=== PATIENT | male | born 1975 | race Caucasian/White ===

== ENCOUNTER 2019-07-25 14:02 | Outpatient (CLI) | payer OTHER, SELFPAY ==
--- NOTE | 2019-07-25 14:15 | USCV_ITS ---
Greg Fernández Age: 43 Gender: M : 1975 Exam Date: 07/25/2019 14:17 Ordering Phys: Bindu Aponte MD ([email or web address]) Technologist: Mary Ann Hernandez Exam Location: [facility] – [place] Indication: PALPITATIONS BP: 146 / 104 HR: 60 Rhythm: Sinus Technical Quality: FAIR MEASUREMENTS (Male / Female) Normal Values 2D ECHO LV Diastolic Diameter PLAX 5.7 cm 4.2 - 5.9 / 3.9 - 5.3 cm LV Systolic Diameter PLAX 4.7 cm LV Chamber Size 4.6 cm IVS Diastolic Thickness 1.1 cm 0.6 - 1.0 / 0.6 - 0.9 cm IVS Systolic Thickness 1.4 cm LVPW Diastolic Thickness 0.9 cm 0.6 - 1.0 / 0.6 - 0.9 cm LVPW Systolic Thickness 1.7 cm RV Chamber Size 2.6 cm LVOT Diameter 2.0 cm LV Ejection Fraction 2D Teich 36.2 % LV Ejection Fraction MOD 2C 66.7 % LV Ejection Fraction 2C AL 68.5 % LA Diameter 4.7 cm LA Width 3.3 cm LA Height 5.7 cm RA Width 2.7 cm RA Height 4.2 cm M-MODE LV Diastolic Diameter MM 6.5 cm 4.2 - 5.9 / 3.9 - 5.3 cm LV Systolic Diameter MM 4.7 cm LV Ejection Fraction MM Teich 53.2 % IVS Diastolic Thickness MM 1.2 cm 0.6 - 1.0 / 0.6 - 0.9 cm IVS Systolic Thickness MM 1.8 cm LVPW Diastolic Thickness MM 0.9 cm 0.6 - 1.0 / 0.6 - 0.9 cm LVPW Systolic Thickness MM 1.8 cm RV Diastolic Diameter MM 1.5 cm Aortic Annulus Diameter 3.7 cm LA Ao Ratio MM 1.3 MV E Point Septal Separation 1.6 cm DOPPLER AV Peak Velocity 108.0 cm/s LVOT Peak Velocity 103.0 cm/s AV Area Cont Eq vti 3.2 cm squared AV Area Cont Eq pk 3.1 cm squared MV Area PHT 4.1 cm squared Mitral E to A Ratio 1.3 MV E' Velocity 11.0 cm/s Mitral E to MV E' Ratio 7.0 Mitral E to LV E' Lateral Ratio 6.4 Mitral E to LV E' Septal Ratio 7.8 TR Peak Velocity 173.3 cm/s TR Peak Gradient 12.0 mmHg TR Mean Velocity 143.4 cm/s TR Mean Gradient 8.5 mmHg TR Velocity Time Integral 41.2 cm TV Peak E Velocity 61.0 cm/s Right Atrial Pressure 3.0 mmHg Pulmonary Artery Systolic Pressu 15.0 mmHg PV Peak Velocity 67.0 cm/s FINDINGS Left Ventricle Normal left ventricular cavity size. Normal left ventricular systolic function. No regional wall motion abnormalities. Left ventricular ejection fraction is estimated at 55 %. Normal diastolic function. Right Ventricle The right ventricle is normal in size and function. Right Atrium The right atrium is normal in size. Left Atrium The left atrium is normal in size. Mitral Valve Thickened mitral valve. No mitral valve stenosis. No mitral valve prolapse. Mild mitral valve regurgitation. Aortic Valve Structurally normal aortic valve without significant sclerosis or stenosis. There is no aortic regurgitation. Tricuspid Valve Structurally normal tricuspid valve without significant stenosis or regurgitation. Pulmonary artery systolic pressure is normal. Pulmonic Valve Mild pulmonary valve regurgitation. Pericardium Normal pericardium without effusion. Aorta Normal ascending aorta dimension. CONCLUSIONS 1-Normal left ventricular cavity size. Normal left ventricular systolic function. No regional wall motion abnormalities. Left ventricular ejection fraction is estimated at 55 %. Normal diastolic function. 2-Thickened mitral valve. No mitral valve stenosis. No mitral valve prolapse. Mild mitral valve regurgitation. 3-Mild pulmonary valve regurgitation. 4-There is no pericardial effusion. 5-Pulmonary artery systolic pressure is within normal limits. 6-Right atrial pressure is around 5 mm of mercury. 7-There are no prior echocardiogram studies to compare. Bindu Aponte MD (Electronically Signed) Final Date: 26 July 2019 17:38 S
== END 2019-07-25 14:03 | disposition home or self-care (01) ==
LOC: US 14:04
PROVIDERS: Family Provider Internal Medicine; PCP Family Medicine; Visit Provider Internal Medicine Cardiovascular Disease
DX: R00.2 Palpitations (principal); I34.0 Nonrheumatic mitral (valve) insufficiency; I37.1 Nonrheumatic pulmonary valve insufficiency
CPT/HCPCS: 93306

== ENCOUNTER → 2019-08-09 14:24 | Outpatient (BNVA) | payer OTHER, SELFPAY | PROVIDERS: Family Provider Internal Medicine; PCP Family Medicine; Referring Provider Internal Medicine Rheumatology; Visit Provider Internal Medicine Rheumatology | DX: D86.9 Sarcoidosis, unspecified (principal); Z79.899 Other long term (current) drug therapy; K71.9 Toxic liver disease, unspecified; T45.1X1D Poisoning by antineoplastic and immunosuppressive drugs, accidental (unintentional), subsequent encounter | CPT/HCPCS: 36415; 80076; 82164; 82306; 82565; 85651; 86140; 99214 ==

== ENCOUNTER → 2019-08-09 16:18 | Outpatient (BNVA) | payer OTHER, SELFPAY | PROVIDERS: Family Provider Internal Medicine; PCP Family Medicine; Referring Provider Internal Medicine Rheumatology; Visit Provider Internal Medicine Rheumatology | DX: D86.9 Sarcoidosis, unspecified (principal); Z79.899 Other long term (current) drug therapy; Z71.89 Other specified counseling; K71.9 Toxic liver disease, unspecified | CPT/HCPCS: 85025 ==

== ENCOUNTER → 2019-11-08 09:04 | Outpatient (BNVA) | payer OTHER, SELFPAY | PROVIDERS: Family Provider Internal Medicine; PCP Family Medicine; Visit Provider Internal Medicine Rheumatology | DX: H20.9 Unspecified iridocyclitis (principal); D86.9 Sarcoidosis, unspecified; Z79.899 Other long term (current) drug therapy; K71.9 Toxic liver disease, unspecified; T45.1X1D Poisoning by antineoplastic and immunosuppressive drugs, accidental (unintentional), subsequent encounter | CPT/HCPCS: 36415; 80076; 82565; 85025; 85651; 86140; 99213 ==

== ENCOUNTER 2021-01-11 13:34 | Emergency (ER) | payer OTHER, SELFPAY ==
[2021-01-11] VITALS (8 sets, daily range): BP systolic 129–170; BP diastolic 79–102; PULSE 75–91; RESP 18–19; TEMP 37.2–37.9; O2SAT 93–95; BMI 39.9
--- NOTE | 2021-01-11 14:12 | ECG_ITS ---
[facility] Test Date: 2021-01-11 Pat Name: Greg Fernández Department: Room: Gender: Male Clinical Manager: : 1975 Requested By: Alonzo Curry Order Number: [id number] Raymundo MD: Dena Barnard M.D. Measurements Intervals [place] Rate: 84 P: 4 TN: 165 QRS: -2 QRSD: 98 T: 6 QT: 365 QTc: 432 Interpretive Statements SINUS RHYTHM WITH OCCASIONAL VENTRICULAR PREMATURE COMPLEXES No previous ECG available for comparison Electronically Signed On 01-12-2021 18:22:32 CDT by Dena Barnard M.D. [id number]
--- NOTE | 2021-01-11 14:12 | XRR_ITS ---
PROCEDURE INFORMATION: Exam: XR Chest Exam date and time: 01/11/2021 2:12 PM Age: 45 years old Clinical indication: Pain; Chest pressure; Additional info: Cp TECHNIQUE: Imaging protocol: XR of the chest. Views: 1 view. COMPARISON: CT chest w con* [id number] 09/28/2018 8:33 AM FINDINGS: Lungs: There is diffusely increased interstitial markings and hazy airspace opacities in the lower lungs, suggestive of pulmonary edema. Pneumonia should be excluded clinically. Pleural spaces: Unremarkable. No pleural effusion. No pneumothorax. Heart/Mediastinum: Stable cardiomediastinal silhouette. Bones/joints: Unremarkable. XR/XR chest 1V portable [id number] IMPRESSION: Nonspecific imaging findings, which can be seen with pulmonary edema or pneumonia, clinical correlation is recommended.
--- NOTE | 2021-01-11 14:14 | W.ED.NAVMDI ---
Documented by User: GUERLINE Martinez 01/11/21 16:52 HPI - Nausea/Vomiting/Diarrhea General: Chief complaint: Abdominal Pain Stated complaint: ABD PAIN, SOB, SUDDEN ONSET VOMITING Time Seen by Provider: 01/11/21 14:08 History of Present Illness: HPI Narrative: Patient presents to the ER today with sudden onset abdominal pain -vomiting. Pain is gone now patient has pressure upper abdomen around his back. Patient has had a headache last couple days has a fever now presently denies muscle aches does feel nauseous. Has had Covid exposure. Denies any shortness of breath diaphoresis or bowel or bladder problems Patient reports history of sarcoidosis MD elicited complaint: nausea, vomiting and abdominal pain Onset (ago): minute(s) Description of vomiting: food contents Associated nausea: Yes Associated abdominal pain: Yes (Abdominal pain is gone now) Location of pain: Epigastric Radiation: left flank and right flank Pain consistency: now resolved Severity: mild Quality: dull Exacerbating factors: none Context: other (Had Covid vaccine, more during a this past week. Also had Covid exposure) Associated symtoms: Reports headache(s) and nausea; Denies anxiety, change in vision or chest pain Review of Systems Const: Denies: fever(s), chills or body aches Eyes: Denies: change in vision or blurry vision ENMT: Denies: throat pain or nasal congestion Card: Denies: chest pain or dyspnea on exertion Resp: Denies: dyspnea, productive cough or non-productive cough GI: Reports: abdominal pain (Describe his discomfort now originally had pain), nausea and vomiting : Denies: difficulty urinating Musc: Denies: extremity pain Skin/Breast: Denies: rash Neuro: Reports: headache(s) Psych: Denies: anxiety or depression Choco/Lymph: Denies: easy bruising PFSH ED PFSH: Medical History Drug-induced liver injury High risk medication use Immunization counseling Palpitation Sarcoidosis Uveitis Surgical History S/P tonsillectomy Family History Mother Congestive heart failure Hypertension Father Diabetes Social History (Updated 08/27/20 @ 15:31 by Simran Talbot RN) Smoking and tobacco status: former smoker Alcohol intake: never Household members: spouse History of recent travel: No Physical Exam Const: COMMON NORMALS: no acute distress, average body habitus and patient oriented x3 HENMT: COMMON NORMALS: normocephalic HEAD & SCALP: normal to inspection and normocephalic FACE & SINUS: normal facial exam Eye: COMMON NORMALS: conjunctivae normal GENERAL EYE: appearance normal, both eyes and all related structures CONJUNCTIVA: Yes conjunctivae normal Neck/C-Spine: COMMON NORMALS: no JVD Chest: COMMONS NORMALS: normal inspection of the chest Resp: COMMON NORMALS: normal respiratory effort and clear to auscultation bilaterally AUSCULTATION: clear to auscultation bilaterally Cardio: COMMON NORMALS: no JVD, regular rate and regular rhythm RATE: regular rate RHYTHM: regular rhythm GI: COMMON NORMALS: Normal to inspection, nondistended, normoactive bowel sounds present Extremity: COMMON NORMALS: normal to inspection and full ROM Neuro: COMMON NORMALS: patient oriented x3 Course Vital Signs: Vital signs: Vital Signs Temperature 98.9 F 01/11/21 16:11 Pulse Rate 76 01/11/21 18:24 Respiratory Rate 18 01/11/21 18:24 Blood Pressure 129/90 01/11/21 18:24 Pulse Oximetry 95 01/11/21 18:24 MDM - Nausea/Vomiting/Diarrhea Lab Data: Labs: Lab Results 01/11/21 01/11/21 01/11/21 Range/Units 14:14 14:14 14:14 WBC 6.8 (4.0-10.0) 10^3/ uL RBC 4.37 (4.1-5.3) 10^6/u L Hgb 14.0 (11.7-16.6) g/dL Hct 41.6 L (42.0-52.0) % MCV 95.2 H (80-94) fL MCH 32.0 (28.0-34.0) pg MCHC 33.7 (30.0-36.0) g/dL RDW 14.6 (12.1-15.1) % Plt Count 293 (130-400) 10^3/c mm MPV 9.6 (7.4-10.4) fL Neut % (Auto) 73.9 % Lymph % (Auto) 12.3 % Bleckley % (Auto) 10.7 % Eos % (Auto) 2.2 % Baso % (Auto) 0.6 % Neut # (Auto) 5.03 (1.8-7.7) 10^3/u L Lymph # (Auto) 0.8 (0.8-4.8) 10^3/u L Bleckley # (Auto) 0.7 (0.2-0.9) 10^3/u L Eos # (Auto) 0.2 (0.0-0.8) 10^3/u L Baso # (Auto) 0.0 (0.0-0.1) 10^3/u L Nucleated RBC % (a uto) 0 % Nucleated RBCs # 0.0 /100WBC PT (12.1-14.9) SECO NDS INR (0.8-1.2) Sodium 138 (136-145) mmol/L Potassium 4.3 (3.5-5.1) mmol/L Chloride 101 (98-107) mmol/L Carbon Dioxide 25 (22-29) mmol/L Anion Gap 16.3 (5-19) BUN 17 (6-20) mg/dL Creatinine 0.9 (0.7-1.2) mg/dL GFR Calculation 90.4 (90-130) mL/min Glucose 114 (65-115) mg/dL Calculated Osmolal ity 288 (285-295) mOsm/k g Calcium 10.1 (8.5-10.5) mg/dL Total Bilirubin 0.6 (0.15-1.2) mg/dL AST 46 H (0-40) U/L ALT 37 (0-41) U/L Alkaline Phosphata se 76 (40-130) IU/L Troponin T Baselin e 16 H (0-15) ng/L Troponin T 120 Min [place] (0-15) ng/L Delta Troponin T (0-10) ABS# NT-Pro-B Natriuret Pep (0-125) pg/mL Total Protein 6.5 L (6.6-8.7) g/dL Albumin 4.2 (3.5-5.2) g/dL Globulin 2.3 (1.3-4.6) g/dL Lipase 196 H (13-60) U/L Urine Color (Yellow) Urine Appearance (CLEAR) Urine pH (5-7) Ur Specific Gravit y (1.005-1.030) Urine Protein (Negative) Urine Glucose (UA) (Normal) Urine Ketones (Negative) Urine Blood (Negative) Urine Nitrate (Negative) Urine Bilirubin (Negative) Urine Urobilinogen (Negative) mg/dL Ur Leukocyte Roula ase (Negative) SARS-CoV-2 Ag (Rap id) (Negative) 01/11/21 01/11/21 01/11/21 Range/Units 14:16 14:16 14:49 WBC (4.0-10.0) 10^3/ uL RBC (4.1-5.3) 10^6/u L Hgb (11.7-16.6) g/dL Hct (42.0-52.0) % MCV (80-94) fL MCH (28.0-34.0) pg MCHC (30.0-36.0) g/dL RDW (12.1-15.1) % Plt Count (130-400) 10^3/c mm MPV (7.4-10.4) fL Neut % (Auto) % Lymph % (Auto) % Bleckley % (Auto) % Eos % (Auto) % Baso % (Auto) % Neut # (Auto) (1.8-7.7) 10^3/u L Lymph # (Auto) (0.8-4.8) 10^3/u L Bleckley # (Auto) (0.2-0.9) 10^3/u L Eos # (Auto) (0.0-0.8) 10^3/u L Baso # (Auto) (0.0-0.1) 10^3/u L Nucleated RBC % (a uto) % Nucleated RBCs # /100WBC PT 13.60 (12.1-14.9) SECO NDS INR 1.01 (0.8-1.2) Sodium (136-145) mmol/L Potassium (3.5-5.1) mmol/L Chloride (98-107) mmol/L Carbon Dioxide (22-29) mmol/L Anion Gap (5-19) BUN (6-20) mg/dL Creatinine (0.7-1.2) mg/dL GFR Calculation (90-130) mL/min Glucose (65-115) mg/dL Calculated Osmolal ity (285-295) mOsm/k g Calcium (8.5-10.5) mg/dL Total Bilirubin (0.15-1.2) mg/dL AST (0-40) U/L ALT (0-41) U/L Alkaline Phosphata se (40-130) IU/L Troponin T Baselin e (0-15) ng/L Troponin T 120 Min [place] (0-15) ng/L Delta Troponin T (0-10) ABS# NT-Pro-B Natriuret Pep (0-125) pg/mL Total Protein (6.6-8.7) g/dL Albumin (3.5-5.2) g/dL Globulin (1.3-4.6) g/dL Lipase (13-60) U/L Urine Color Yellow (Yellow) Urine Appearance Clear (CLEAR) Urine pH 5 (5-7) Ur Specific Gravit y 1.025 (1.005-1.030) Urine Protein Neg (Negative) Urine Glucose (UA) Norm (Normal) Urine Ketones Negative (Negative) Urine Blood Neg (Negative) Urine Nitrate Negative (Negative) Urine Bilirubin Neg (Negative) Urine Urobilinogen Norm (Negative) mg/dL Ur Leukocyte Roula ase Negative (Negative) SARS-CoV-2 Ag (Rap id) Negative (Negative) 01/11/21 01/11/21 Range/Units 16:39 16:39 WBC (4.0-10.0) 10^3/ uL RBC (4.1-5.3) 10^6/u L Hgb (11.7-16.6) g/dL Hct (42.0-52.0) % MCV (80-94) fL MCH (28.0-34.0) pg MCHC (30.0-36.0) g/dL RDW (12.1-15.1) % Plt Count (130-400) 10^3/c mm MPV (7.4-10.4) fL Neut % (Auto) % Lymph % (Auto) % Bleckley % (Auto) % Eos % (Auto) % Baso % (Auto) % Neut # (Auto) (1.8-7.7) 10^3/u L Lymph # (Auto) (0.8-4.8) 10^3/u L Bleckley # (Auto) (0.2-0.9) 10^3/u L Eos # (Auto) (0.0-0.8) 10^3/u L Baso # (Auto) (0.0-0.1) 10^3/u L Nucleated RBC % (a uto) % Nucleated RBCs # /100WBC PT (12.1-14.9) SECO NDS INR (0.8-1.2) Sodium (136-145) mmol/L Potassium (3.5-5.1) mmol/L Chloride (98-107) mmol/L Carbon Dioxide (22-29) mmol/L Anion Gap (5-19) BUN (6-20) mg/dL Creatinine (0.7-1.2) mg/dL GFR Calculation (90-130) mL/min Glucose (65-115) mg/dL Calculated Osmolal ity (285-295) mOsm/k g Calcium (8.5-10.5) mg/dL Total Bilirubin (0.15-1.2) mg/dL AST (0-40) U/L ALT (0-41) U/L Alkaline Phosphata se (40-130) IU/L Troponin T Baselin e (0-15) ng/L Troponin T 120 Min [place] 13.81 (0-15) ng/L Delta Troponin T -2.19 L (0-10) ABS# NT-Pro-B Natriuret Pep 137 H (0-125) pg/mL Total Protein (6.6-8.7) g/dL Albumin (3.5-5.2) g/dL Globulin (1.3-4.6) g/dL Lipase (13-60) U/L Urine Color (Yellow) Urine Appearance (CLEAR) Urine pH (5-7) Ur Specific Gravit y (1.005-1.030) Urine Protein (Negative) Urine Glucose (UA) (Normal) Urine Ketones (Negative) Urine Blood (Negative) Urine Nitrate (Negative) Urine Bilirubin (Negative) Urine Urobilinogen (Negative) mg/dL Ur Leukocyte Roula ase (Negative) SARS-CoV-2 Ag (Rap id) (Negative) EKG Data^: EKG 1: EKG interpretation date: 01/11/21 EKG interpretation time: 14:39 Computer generated interpretation: Sinus rhythm with occasional PVC ventricular rate 84 bpm DE interval 165 ms QRS duration 98 ms QT 365 ms EKG 2: EKG interpretation date: 01/11/21 EKG interpretation time: 16:45 Computer generated interpretation: Normal sinus rhythm ventricular rate 71 bpm DE interval 182 ms QRS duration 97 ms QT is 387 ms Discharge Plan Discharge Patient Disposition: Home Clinical Impression: Lymphadenopathy, generalized, Lytic bone lesions on xray Acute pancreatitis Qualifiers: Pancreatitis type: unspecified pancreatitis type Acute pancreatitis complication: no infection or necrosis Qualified Code(s): K85.90 - Acute pancreatitis without necrosis or infection, unspecified Condition: Stable Prescriptions: Continued ibuprofen 400 mg tablet 400 mg PO Q6H PRN (Reason: Pain) RF: 0 ProAir HFA 90 mcg/actuation Hfa Aerosol Inhaler 2 puff INHALATION Q6H PRN (Reason: Shortness Of Breath) RF: 0 Discharge Orders: Discharge ED (Routine); Ordered 01/11/21 Ordered By: Navid Velazco Referrals: Ailyn Hollingsworth MD [Primary Care Provider] - 1-3 days Discharge Diet: As Directed Discharge Activity: Increase activity as tolerated Patient Instructions: Pancreatitis (ED), Lymphadenopathy (ED) Activity Restrictions/Additional Instructions: Return for any new or worsening symptoms. Follow-up with your primary care provider within 3 days. You will be contacted by case management to schedule an appointment with the oncologist for further evaluation. 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 Consume a liquid or soft diet for the next 2 days and then gradually advance your diet. Sign Out Sign Out Data: Patient Sign Out occurred on 01/11/21 at 17:25. Patient's care was discussed, and care was transferred from to Navid Velazco MD, [facility]. Coding Level of Care Code ED Pastrycook'S Assistant for Chg Fwd Exam Comprehensive Documented by User: Navid Velazco MD, [facility] 01/11/21 23:17 HPI - Nausea/Vomiting/Diarrhea General: Chief complaint: Abdominal Pain Stated complaint: ABD PAIN, SOB, SUDDEN ONSET VOMITING Time Seen by Provider: 01/11/21 14:08 [facility] ED PFSH: Medical History Drug-induced liver injury High risk medication use Immunization counseling Palpitation Sarcoidosis Uveitis Surgical History S/P tonsillectomy Family History Mother Congestive heart failure Hypertension Father Diabetes Social History (Updated 08/27/20 @ 15:31 by Simran Talbot RN) Smoking and tobacco status: former smoker Alcohol intake: never Household members: spouse History of recent travel: No Course Reevaluation(s): Reevaluation #1: Discussed his lab and imaging findings with him. Advised that due to the extensive lymphadenopathy I am concerned about malignancy as well as the lytic lesions noted on his lumbar vertebrae. I we will discharge him and make a referral for the patient to be seen by oncology as no primary can be identified. He will need further work-up. He also has sarcoidosis and patient is wondering if this could be responsible for the lymphadenopathy. It will however not explain the lytic lesions on his spine. 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 Time: 18:10 Vital Signs: Vital signs: Vital Signs Temperature 98.9 F 01/11/21 16:11 Pulse Rate 76 01/11/21 18:24 Respiratory Rate 18 01/11/21 18:24 Blood Pressure 129/90 01/11/21 18:24 Pulse Oximetry 95 01/11/21 18:24 MDM - Nausea/Vomiting/Diarrhea MDM Narrative: Medical decision making narrative: Kindly evaluate the midlevel providers note for complete history and physical examination. I also evaluated this patient and agree with his findings. Essentially this is a 45-year-old male who presents to the emergency department with sudden onset of abdominal pain that started earlier today. Pain has since resolved. As part of his work-up he had mildly elevated lipase and so a CT scan was done. Because of his abnormal chest x-ray findings a CT was also done of his chest. CT scan of his chest, abdomen and pelvis show extensive lymphadenopathy but no significant findings on his pancreas. CT scan also showed lytic lesions on L2 and L4. I am concerned about malignancy in this patient and so he is referred to oncology for further evaluation and management. He is discharged home Medical Records: Attestation: I reviewed the patient's medical records. Lab Data: Attestation: I reviewed the patient's lab results. Labs: Lab Results 01/11/21 01/11/21 01/11/21 Range/Units 14:14 14:14 14:14 WBC 6.8 (4.0-10.0) 10^3/ uL RBC 4.37 (4.1-5.3) 10^6/u L Hgb 14.0 (11.7-16.6) g/dL Hct 41.6 L (42.0-52.0) % MCV 95.2 H (80-94) fL MCH 32.0 (28.0-34.0) pg MCHC 33.7 (30.0-36.0) g/dL RDW 14.6 (12.1-15.1) % Plt Count 293 (130-400) 10^3/c mm MPV 9.6 (7.4-10.4) fL Neut % (Auto) 73.9 % Lymph % (Auto) 12.3 % Bleckley % (Auto) 10.7 % Eos % (Auto) 2.2 % Baso % (Auto) 0.6 % Neut # (Auto) 5.03 (1.8-7.7) 10^3/u L Lymph # (Auto) 0.8 (0.8-4.8) 10^3/u L Bleckley # (Auto) 0.7 (0.2-0.9) 10^3/u L Eos # (Auto) 0.2 (0.0-0.8) 10^3/u L Baso # (Auto) 0.0 (0.0-0.1) 10^3/u L Nucleated RBC % (a uto) 0 % Nucleated RBCs # 0.0 /100WBC PT (12.1-14.9) SECO NDS INR (0.8-1.2) Sodium 138 (136-145) mmol/L Potassium 4.3 (3.5-5.1) mmol/L Chloride 101 (98-107) mmol/L Carbon Dioxide 25 (22-29) mmol/L Anion Gap 16.3 (5-19) BUN 17 (6-20) mg/dL Creatinine 0.9 (0.7-1.2) mg/dL GFR Calculation 90.4 (90-130) mL/min Glucose 114 (65-115) mg/dL Calculated Osmolal ity 288 (285-295) mOsm/k g Calcium 10.1 (8.5-10.5) mg/dL Total Bilirubin 0.6 (0.15-1.2) mg/dL AST 46 H (0-40) U/L ALT 37 (0-41) U/L Alkaline Phosphata se 76 (40-130) IU/L Troponin T Baselin e 16 H (0-15) ng/L Troponin T 120 Min [place] (0-15) ng/L Delta Troponin T (0-10) ABS# NT-Pro-B Natriuret Pep (0-125) pg/mL Total Protein 6.5 L (6.6-8.7) g/dL Albumin 4.2 (3.5-5.2) g/dL Globulin 2.3 (1.3-4.6) g/dL Lipase 196 H (13-60) U/L Urine Color (Yellow) Urine Appearance (CLEAR) Urine pH (5-7) Ur Specific Gravit y (1.005-1.030) Urine Protein (Negative) Urine Glucose (UA) (Normal) Urine Ketones (Negative) Urine Blood (Negative) Urine Nitrate (Negative) Urine Bilirubin (Negative) Urine Urobilinogen (Negative) mg/dL Ur Leukocyte Roula ase (Negative) SARS-CoV-2 Ag (Rap id) (Negative) 01/11/21 01/11/21 01/11/21 Range/Units 14:16 14:16 14:49 WBC (4.0-10.0) 10^3/ uL RBC (4.1-5.3) 10^6/u L Hgb (11.7-16.6) g/dL Hct (42.0-52.0) % MCV (80-94) fL MCH (28.0-34.0) pg MCHC (30.0-36.0) g/dL RDW (12.1-15.1) % Plt Count (130-400) 10^3/c mm MPV (7.4-10.4) fL Neut % (Auto) % Lymph % (Auto) % Bleckley % (Auto) % Eos % (Auto) % Baso % (Auto) % Neut # (Auto) (1.8-7.7) 10^3/u L Lymph # (Auto) (0.8-4.8) 10^3/u L Bleckley # (Auto) (0.2-0.9) 10^3/u L Eos # (Auto) (0.0-0.8) 10^3/u L Baso # (Auto) (0.0-0.1) 10^3/u L Nucleated RBC % (a uto) % Nucleated RBCs # /100WBC PT 13.60 (12.1-14.9) SECO NDS INR 1.01 (0.8-1.2) Sodium (136-145) mmol/L Potassium (3.5-5.1) mmol/L Chloride (98-107) mmol/L Carbon Dioxide (22-29) mmol/L Anion Gap (5-19) BUN (6-20) mg/dL Creatinine (0.7-1.2) mg/dL GFR Calculation (90-130) mL/min Glucose (65-115) mg/dL Calculated Osmolal ity (285-295) mOsm/k g Calcium (8.5-10.5) mg/dL Total Bilirubin (0.15-1.2) mg/dL AST (0-40) U/L ALT (0-41) U/L Alkaline Phosphata se (40-130) IU/L Troponin T Baselin e (0-15) ng/L Troponin T 120 Min [place] (0-15) ng/L Delta Troponin T (0-10) ABS# NT-Pro-B Natriuret Pep (0-125) pg/mL Total Protein (6.6-8.7) g/dL Albumin (3.5-5.2) g/dL Globulin (1.3-4.6) g/dL Lipase (13-60) U/L Urine Color Yellow (Yellow) Urine Appearance Clear (CLEAR) Urine pH 5 (5-7) Ur Specific Gravit y 1.025 (1.005-1.030) Urine Protein Neg (Negative) Urine Glucose (UA) Norm (Normal) Urine Ketones Negative (Negative) Urine Blood Neg (Negative) Urine Nitrate Negative (Negative) Urine Bilirubin Neg (Negative) Urine Urobilinogen Norm (Negative) mg/dL Ur Leukocyte Roula ase Negative (Negative) SARS-CoV-2 Ag (Rap id) Negative (Negative) 01/11/21 01/11/21 Range/Units 16:39 16:39 WBC (4.0-10.0) 10^3/ uL RBC (4.1-5.3) 10^6/u L Hgb (11.7-16.6) g/dL Hct (42.0-52.0) % MCV (80-94) fL MCH (28.0-34.0) pg MCHC (30.0-36.0) g/dL RDW (12.1-15.1) % Plt Count (130-400) 10^3/c mm MPV (7.4-10.4) fL Neut % (Auto) % Lymph % (Auto) % Bleckley % (Auto) % Eos % (Auto) % Baso % (Auto) % Neut # (Auto) (1.8-7.7) 10^3/u L Lymph # (Auto) (0.8-4.8) 10^3/u L Bleckley # (Auto) (0.2-0.9) 10^3/u L Eos # (Auto) (0.0-0.8) 10^3/u L Baso # (Auto) (0.0-0.1) 10^3/u L Nucleated RBC % (a uto) % Nucleated RBCs # /100WBC PT (12.1-14.9) SECO NDS INR (0.8-1.2) Sodium (136-145) mmol/L Potassium (3.5-5.1) mmol/L Chloride (98-107) mmol/L Carbon Dioxide (22-29) mmol/L Anion Gap (5-19) BUN (6-20) mg/dL Creatinine (0.7-1.2) mg/dL GFR Calculation (90-130) mL/min Glucose (65-115) mg/dL Calculated Osmolal ity (285-295) mOsm/k g Calcium (8.5-10.5) mg/dL Total Bilirubin (0.15-1.2) mg/dL AST (0-40) U/L ALT (0-41) U/L Alkaline Phosphata se (40-130) IU/L Troponin T Baselin e (0-15) ng/L Troponin T 120 Min [place] 13.81 (0-15) ng/L Delta Troponin T -2.19 L (0-10) ABS# NT-Pro-B Natriuret Pep 137 H (0-125) pg/mL Total Protein (6.6-8.7) g/dL Albumin (3.5-5.2) g/dL Globulin (1.3-4.6) g/dL Lipase (13-60) U/L Urine Color (Yellow) Urine Appearance (CLEAR) Urine pH (5-7) Ur Specific Gravit y (1.005-1.030) Urine Protein (Negative) Urine Glucose (UA) (Normal) Urine Ketones (Negative) Urine Blood (Negative) Urine Nitrate (Negative) Urine Bilirubin (Negative) Urine Urobilinogen (Negative) mg/dL Ur Leukocyte Roula ase (Negative) SARS-CoV-2 Ag (Rap id) (Negative) Imaging Data^: CT Chest: Attestation: I personally reviewed and interpreted this imaging study as follows: Radiologist's impression: [address] [id number] Scan ReportSigned Patient: Greg Fernández #: [id number]: [id number]#:[id number]/Sex: 45 / MADM Date: 01/11/21Loc: ERRoom/Bed:Attending Dr: Ordering Provider/Ordering MD: Navid Velazco MD, [facility] Date of Service: 01/11/21 Procedure(s): CT chest [facility] [id number] Accession Number(s): [id number] Report Number: [id number] PROCEDURE INFORMATION: Exam: CT Chest Without Contrast; Diagnostic Exam date and time: 01/11/2021 4:18 PM Age: 45 years old Clinical indication: Shortness of breath; Patient HX: C/O SOB w HX of sarcoidosis; Additional info: Abdominal pain, SOB TECHNIQUE: Imaging protocol: Diagnostic computed tomography of the chest without contrast. Radiation optimization: All CT scans at this facility use at least one of these dose optimization techniques: automated exposure control; mA and/or kV adjustment per patient size (includes targeted exams where dose is matched to clinical indication); or iterative reconstruction. COMPARISON: CT chest w con* [id number] 09/28/2018 8:33 AM RADIATION DOSE METRICS: Total DLP (mGy-cm): 968.78 FINDINGS: Lungs: There is diffuse reticular pattern of opacification the lungs with paraseptal thickening, and mild diffuse peribronchial thickening. No consolidation. No discrete nodule or mass identified. Pleural spaces: Unremarkable. No pneumothorax. No pleural effusion. Heart: Unremarkable. No cardiomegaly. No pericardial effusion. Aorta: Unremarkable. No aortic aneurysm. Lymph nodes: There is multiple enlarged mediastinal and bilateral hilar lymph nodes, the largest measuring 2.0 cm in transverse dimension in the right paratracheal region. Bones/joints: Old healed fracture deformity noted in the left lateral ribcage. Soft tissues: Unremarkable. CT/CT chest wo con [id number] IMPRESSION: 1. Extensive mediastinal lymphadenopathy. Lymphoma should be considered. 2. Diffuse reticular pattern of opacification of the lungs. Diagnostic considerations include malignancy, pneumonitis and edema. Radiation Dose CTDIVOL = (mGy): DLP = 968.78 (mGy-cm) Dictated By:Russel Colin By:Russel Colin Date/Time:01/11/21 [id number]/ 1649 CT Abd/Pel: Attestation: I personally reviewed and interpreted this imaging study as follows: Radiologist's impression: [address] [id number] Scan ReportSigned Patient: Greg Fernández SUnit #: [id number]: [id number]#:[id number]/Sex: 45 / MADM Date: 01/11/21Loc: ERRoom/Bed:Attending Dr: Ordering Provider/Ordering MD: Mandi Curry Sr, [facility]- Date of Service: 01/11/21 Procedure(s): CT abdomen pelvis w con* [id number] Accession Number(s): [id number] Report Number: [id number] PROCEDURE INFORMATION: Exam: CT Abdomen And Pelvis With Contrast Exam date and time: 01/11/2021 3:34 PM Age: 45 years old Clinical indication: Abdominal pain; Epigastric; Patient HX: C/O upper abd pain w n/v and elev lipaise; Additional info: Abd pain, elevated lipase TECHNIQUE: Imaging protocol: Computed tomography of the abdomen and pelvis with contrast. Radiation optimization: All CT scans at this facility use at least one of these dose optimization techniques: automated exposure control; mA and/or kV adjustment per patient size (includes targeted exams where dose is matched to clinical indication); or iterative reconstruction. Contrast material: OMNI 300; Contrast volume: 95 ml; Contrast route: INTRAVENOUS (IV); COMPARISON: abdomen limited [id number] 06/06/2019 7:22 AM RADIATION DOSE METRICS: Total DLP (mGy-cm): 1875.21 FINDINGS: Lungs: There is increased interstitial markings and paraseptal thickening in both lungs. No consolidation. Liver: Normal. No mass. Gallbladder and bile ducts: Normal. No calcified stones. No ductal dilation. Pancreas: Normal. No ductal dilation. Spleen: There is multiple hypodense lesions in the spleen, the largest measuring 3.0 cm. Adrenal glands: Normal. No mass. Kidneys and ureters: Normal. No hydronephrosis. Stomach and bowel: There is diverticulosis without evidence of diverticulitis. There is a short segment of small bowel demonstrating dilatation, air-fluid levels and fecalization in the mid lower abdomen/left lower quadrant, without clear evidence of obstruction. This finding is suggestive of slow motility. Appendix: No evidence of appendicitis. Intraperitoneal space: Unremarkable. No free air. No significant fluid collection. Vasculature: Mild diffuse atherosclerotic disease is present. Lymph nodes: There is multiple enlarged lymph nodes in the aaron hepatis, the largest measuring 1.8 cm in transverse dimension, small prominent lymph nodes throughout the retroperitoneum, enlarged lymph nodes in the iliac chains bilaterally, the largest measuring 1.9 cm on the left, and mildly prominent bilateral inguinal lymph nodes, the largest on the right measuring 1.3 cm in transverse dimension. Urinary bladder: Unremarkable as visualized. Reproductive: Unremarkable as visualized. Bones/joints: There is a 1.5 cm lytic lesion in L4, and a 0.7 cm lytic lesion in L2. Soft tissues: Unremarkable. CT/CT abdomen pelvis w con* [id number] IMPRESSION: 1. Increased interstitial markings and paraseptal thickening in both lungs, which can be seen with pulmonary edema, pneumonitis or lepidic spread of disease in the setting of malignancy. 2. Extensive lymphadenopathy in the upper abdomen, retroperitoneum, bilateral iliac chains and inguinal regions. Biopsy should be considered in the adequate clinical setting. 3. Nonspecific hypodense lesions in the spleen. 4. Nonspecific L4 lytic lesion. 5. Mildly distended short segment of small bowel loops with evidence of fecalization and no clear transition point in the left lower quadrant, suggestive of slow motility. Radiation Dose CTDIVOL = (mGy): DLP = 1875.21 (mGy-cm) Dictated By:Russel Colin By:Russel Colin Date/Time:01/11/211644DD/ 42 Discharge Plan Discharge Patient Disposition: Home Clinical Impression: Lymphadenopathy, generalized, Lytic bone lesions on xray Acute pancreatitis Qualifiers: Pancreatitis type: unspecified pancreatitis type Acute pancreatitis complication: no infection or necrosis Qualified Code(s): K85.90 - Acute pancreatitis without necrosis or infection, unspecified Condition: Stable Prescriptions: Continued ibuprofen 400 mg tablet 400 mg PO Q6H PRN (Reason: Pain) RF: 0 ProAir HFA 90 mcg/actuation Hfa Aerosol Inhaler 2 puff INHALATION Q6H PRN (Reason: Shortness Of Breath) RF: 0 Discharge Orders: Discharge ED (Routine); Ordered 01/11/21 Ordered By: Navid Velazco Referrals: Ailyn Hollingsworth MD [Primary Care Provider] - 1-3 days Discharge Diet: As Directed Discharge Activity: Increase activity as tolerated Patient Instructions: Pancreatitis (ED), Lymphadenopathy (ED) Activity Restrictions/Additional Instructions: Return for any new or worsening symptoms. Follow-up with your primary care provider within 3 days. You will be contacted by case management to schedule an appointment with the oncologist for further evaluation. 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 Consume a liquid or soft diet for the next 2 days and then gradually advance your diet. Sign Out Sign Out Data: Patient Sign Out occurred on 01/11/21 at 17:25. Patient's care was discussed, and care was transferred from to Navid Velazco MD, [facility]. Coding Level of Care Code ED Pastrycook'S Assistant for Chg Fwd Exam Comprehensive
[2021-01-11] MEDS: sodium chloride 0.9% 500 ML 999 ML IV (14:23)
[2021-01-11] MEDS: acetaminophen 500 mg Tablet 1000 MG PO (14:24)
[2021-01-11 14:38] LABS: Basophils % 0.6 %; Eosinophils # 0.2 10^3/uL (0.0-0.8); Eosinophils % 2.2 %; Hematocrit 41.6 % (42.0-52.0); Lymphocytes # 0.8 10^3/uL (0.8-4.8); Lymphocytes % 12.3 %; Mean Corpuscular HGB Conc 33.7 g/dL (30.0-36.0); Mean Corpuscular Volume 95.2 fL (80-94); Mean Platelet Volume 9.6 fL (7.4-10.4); Monocytes # 0.7 10^3/uL (0.2-0.9); Monocytes % 10.7 %; Neutrophils # 5.03 10^3/uL (1.8-7.7); Neutrophils % 73.9 %; Nucleated Red Blood Cells % 0 %; Platelet Count 293 10^3/cmm (130-400); Red Blood Count 4.37 10^6/uL (4.1-5.3); Red Cell Distribution Width 14.6 % (12.1-15.1); White Blood Count 6.8 10^3/uL (4.0-10.0)
[2021-01-11 14:56] LABS: Alanine Aminotransferase 37 U/L (0-41); Albumin Level 4.2 g/dL (3.5-5.2); Alkaline Phosphatase 76 IU/L (40-130); Anion Gap 16.3 (5-19); Aspartate Amino Transferase 46 U/L (0-40); Blood Urea Nitrogen 17 mg/dL (6-20); Calcium 10.1 mg/dL (8.5-10.5); Carbon Dioxide 25 mmol/L (22-29); Chloride 101 mmol/L (98-107); Globulin 2.3 g/dL (1.3-4.6); Glomerular Filtration Rate 90.4 mL/min (90-130); Glucose 114 mg/dL (65-115); Lipase 196 U/L (13-60); Osmolality Calculated 288 mOsm/kg (285-295); Potassium 4.3 mmol/L (3.5-5.1); Sodium 138 mmol/L (136-145); Total Bilirubin 0.6 mg/dL (0.15-1.2); Total Protein 6.5 g/dL (6.6-8.7)
[2021-01-11 14:59] LABS: Troponin(5th) Baseline 16 ng/L (0-15)
[2021-01-11 15:04] LABS: Add Urine Microscopic? NO; Charge for UA Resulting for Rev
[2021-01-11 15:12] LABS: Bilirubin Urine Neg (Negative); Blood Urine Neg (Negative); Glucose Urine UA Norm (Normal); Ketones Urine Negative (Negative); Leukocyte Esterase Urine Negative (Negative); Nitrate Urine Negative (Negative); Protein Urine Neg (Negative); Specific Gravity, Urine 1.025 (1.005-1.030); Urine Appearance Clear (CLEAR); Urine Color Yellow (Yellow); Urobilinogen Urine Norm (Negative); pH Urine 5 (5-7)
[2021-01-11 15:31] LABS: SARS Covid-2 Antigen Negative (Negative)
--- NOTE | 2021-01-11 15:34 | CTR_ITS ---
PROCEDURE INFORMATION: Exam: CT Abdomen And Pelvis With Contrast Exam date and time: 01/11/2021 3:34 PM Age: 45 years old Clinical indication: Abdominal pain; Epigastric; Patient HX: C/O upper abd pain w n/v and elev lipaise; Additional info: Abd pain, elevated lipase TECHNIQUE: Imaging protocol: Computed tomography of the abdomen and pelvis with contrast. Radiation optimization: All CT scans at this facility use at least one of these dose optimization techniques: automated exposure control; mA and/or kV adjustment per patient size (includes targeted exams where dose is matched to clinical indication); or iterative reconstruction. Contrast material: OMNI 300; Contrast volume: 95 ml; Contrast route: INTRAVENOUS (IV); COMPARISON: abdomen limited [id number] 06/06/2019 7:22 AM RADIATION DOSE METRICS: Total DLP (mGy-cm): 1875.21 FINDINGS: Lungs: There is increased interstitial markings and paraseptal thickening in both lungs. No consolidation. Liver: Normal. No mass. Gallbladder and bile ducts: Normal. No calcified stones. No ductal dilation. Pancreas: Normal. No ductal dilation. Spleen: There is multiple hypodense lesions in the spleen, the largest measuring 3.0 cm. Adrenal glands: Normal. No mass. Kidneys and ureters: Normal. No hydronephrosis. Stomach and bowel: There is diverticulosis without evidence of diverticulitis. There is a short segment of small bowel demonstrating dilatation, air-fluid levels and fecalization in the mid lower abdomen/left lower quadrant, without clear evidence of obstruction. This finding is suggestive of slow motility. Appendix: No evidence of appendicitis. Intraperitoneal space: Unremarkable. No free air. No significant fluid collection. Vasculature: Mild diffuse atherosclerotic disease is present. Lymph nodes: There is multiple enlarged lymph nodes in the aaron hepatis, the largest measuring 1.8 cm in transverse dimension, small prominent lymph nodes throughout the retroperitoneum, enlarged lymph nodes in the iliac chains bilaterally, the largest measuring 1.9 cm on the left, and mildly prominent bilateral inguinal lymph nodes, the largest on the right measuring 1.3 cm in transverse dimension. Urinary bladder: Unremarkable as visualized. Reproductive: Unremarkable as visualized. Bones/joints: There is a 1.5 cm lytic lesion in L4, and a 0.7 cm lytic lesion in L2. Soft tissues: Unremarkable. CT/CT abdomen pelvis w con* [id number] IMPRESSION: 1. Increased interstitial markings and paraseptal thickening in both lungs, which can be seen with pulmonary edema, pneumonitis or lepidic spread of disease in the setting of malignancy. 2. Extensive lymphadenopathy in the upper abdomen, retroperitoneum, bilateral iliac chains and inguinal regions. Biopsy should be considered in the adequate clinical setting. 3. Nonspecific hypodense lesions in the spleen. 4. Nonspecific L4 lytic lesion. 5. Mildly distended short segment of small bowel loops with evidence of fecalization and no clear transition point in the left lower quadrant, suggestive of slow motility. Radiation Dose CTDIVOL = (mGy): DLP = 1875.21 (mGy-cm)
[2021-01-11 15:36] LABS: INR 1.01 (0.8-1.2)
[2021-01-11] MEDS: iohexol 300 mg/mL 100 mL Btl IV (16:17)
--- NOTE | 2021-01-11 16:18 | CTR_ITS ---
PROCEDURE INFORMATION: Exam: CT Chest Without Contrast; Diagnostic Exam date and time: 01/11/2021 4:18 PM Age: 45 years old Clinical indication: Shortness of breath; Patient HX: C/O SOB w HX of sarcoidosis; Additional info: Abdominal pain, SOB TECHNIQUE: Imaging protocol: Diagnostic computed tomography of the chest without contrast. Radiation optimization: All CT scans at this facility use at least one of these dose optimization techniques: automated exposure control; mA and/or kV adjustment per patient size (includes targeted exams where dose is matched to clinical indication); or iterative reconstruction. COMPARISON: CT chest w con* [id number] 09/28/2018 8:33 AM RADIATION DOSE METRICS: Total DLP (mGy-cm): 968.78 FINDINGS: Lungs: There is diffuse reticular pattern of opacification the lungs with paraseptal thickening, and mild diffuse peribronchial thickening. No consolidation. No discrete nodule or mass identified. Pleural spaces: Unremarkable. No pneumothorax. No pleural effusion. Heart: Unremarkable. No cardiomegaly. No pericardial effusion. Aorta: Unremarkable. No aortic aneurysm. Lymph nodes: There is multiple enlarged mediastinal and bilateral hilar lymph nodes, the largest measuring 2.0 cm in transverse dimension in the right paratracheal region. Bones/joints: Old healed fracture deformity noted in the left lateral ribcage. Soft tissues: Unremarkable. CT/CT chest wo con [id number] IMPRESSION: 1. Extensive mediastinal lymphadenopathy. Lymphoma should be considered. 2. Diffuse reticular pattern of opacification of the lungs. Diagnostic considerations include malignancy, pneumonitis and edema. Radiation Dose CTDIVOL = (mGy): DLP = 968.78 (mGy-cm)
[2021-01-11 17:32] LABS: Troponin 5 2HR 13.81 ng/L (0-15)
[2021-01-11 17:39] LABS: NT Pro B Type Natriuretic Pept 137 pg/mL (0-125)
[2021-01-11 17:42] LABS: Troponin 5 2HR Delta -2.19 ABS# (0-10)
--- NOTE | 2021-01-13 11:28 | DCPLANNER ---
manager critical care had message to schedule a follow up appointment for patient with oncology. manager critical care called Hermila, the field coordinator for the oncology department. manager critical care also sent patients information to [facility], with [facility], so that the authorization process could be started. manager critical care spoke with patient, he stated that he has reached out to his PACT team. manager critical care also sent patients information to [facility] General Surgery, patient will also need to be seen by general surgery for a biopsy.
--- NOTE | 2021-01-15 12:16 | DCPLANNER ---
Patient has a follow up appointment scheduled for Sunday, January 24, 2021 at 2:[address] Santos at [facility] General Surgery. Clinic will call patient with appointment information.
--- NOTE | 2021-01-29 07:49 | DCPLANNER ---
Patient had a follow up appointment scheduled for 01.24.21 at General Surgery - patient did attend appointment.
== END 2021-01-11 18:24 | disposition home or self-care (01) ==
PROVIDERS: Nurse Practitioner Family; Emergency Provider Family Medicine; PCP Family Medicine
DX: K85.90 Acute pancreatitis without necrosis or infection, unspecified (principal); R59.1 Generalized enlarged lymph nodes; M89.9 Disorder of bone, unspecified; Z87.891 Personal history of nicotine dependence
CPT/HCPCS: 71045; 71250; 74177; 80053; 81003; 83690; 83880; 84484; 85025; 85610; 87426; 93005; 99284; J7040; Q9967

== ENCOUNTER → 2021-01-27 10:16 | Outpatient (BNVA) | payer OTHER, SELFPAY | PROVIDERS: PCP Family Medicine; Visit Provider Surgery | DX: R59.1 Generalized enlarged lymph nodes (principal); Z20.822 Contact with and (suspected) exposure to COVID-19 | CPT/HCPCS: 87635 ==

== ENCOUNTER 2021-01-30 05:49 | Day surgery (SDC) | payer OTHER, SELFPAY ==
[2021-01-29 15:27] VITALS: BMI 38.7
[2021-01-30] VITALS (7 sets, daily range): BP systolic 103–136; BP diastolic 70–98; PULSE 75–83; RESP 16–20; TEMP 36.1–37.1; O2SAT 93–96
[2021-01-30] MEDS: sodium chloride 0.9% 1,000 ML 30 ML IV (06:28)
--- NOTE | 2021-01-30 06:59 | W.PM.OPSUD ---
Surgery/Procedure H&P Update DATE OF PROCEDURE: January 30, 2021 DATE H&P PERFORMED: 01/24/21 H&P UPDATE INFORMATION: I have reviewed H&P completed within last 30 days, I have examined patient prior to procedure and No changes to prior documentation PLANNED PROCEDURE: Operation Date: 01/30/21 07:00 Proposed Procedures p inguinal lymph node biopsy [id number] R59.1(Right) - Dirk Santos MD
[2021-01-30] MEDS: lidocaine 1% INJ 50 mL 20 ML INJECTION (07:30)
--- NOTE | 2021-01-30 07:32 | PM.OP ---
Operative Report Date of procedure: January 30, 2021 Pre-op Diagnosis: generalized lymphadenopathy Post-op diagnosis: same Procedure Done: Right inguinal lymph node biopsy Specimens removed/disposition: Right inguinal lymph node Surgeon: Dirk Santos Anesthesia: MAC Condition: stable Disposition: PACU Procedure: The patient was taken to the operating room and placed under MAC after IV antibiotic had been administered. The right groin was prepped and draped in a sterile manner. A 3 cm incision was made over the palpable right inguinal lymph node using 15 blade. The subcutaneous tissue was divided, Alex's fascia was divided and the right inguinal lymph node was identified which was dissected free from the surrounding subcutaneous tissue. The vascular pedicle was divided using electrocautery and the specimen was sent fresh to pathology. Wound was irrigated with saline, subcutaneous tissues approximated using interrupted 3-0 Vicryl suture and skin was closed using running subcuticular 4-0 Monocryl suture and Dermabond. The patient was transferred to recovery room in stable condition.
--- NOTE | 2021-01-30 14:35 | ANE.PACU2 ---
Inpatient post-anesthesia follow up: Airway intact: Yes Vital signs: Temperature 97 F Pulse Rate 75 Respiratory Rate 18 Blood Pressure 136/79 Pulse Oximetry 95 Oxygen Delivery Me thod Room Air Oxygen Flow Rate 6 Fraction of Inspir ed Oxygen Hydration adequate: Yes Nausea and vomiting: No Pain level: 2 Mental status: Baseline
[2021-02-07 07:18] LABS: Miscellaneous Test See Scanned Lab Rpt
== END 2021-01-30 08:21 | disposition home or self-care (01) ==
PROVIDERS: PCP Family Medicine; Visit Provider Surgery
PROC: (CPT 38531; principal; 2021-01-30 07:00)
DX: R59.1 Generalized enlarged lymph nodes (principal); Z87.891 Personal history of nicotine dependence
CPT/HCPCS: 38531; 87015; 87070; 87116; 87176; 87205; 87206; 87801; 88184; 88185; 88305; J0690; J2704; J3010; J3490; J7030

== ENCOUNTER → 2021-03-12 14:28 | Outpatient (BNVA) | payer OTHER, SELFPAY | PROVIDERS: PCP Family Medicine; Visit Provider Podiatrist Foot & Ankle Surgery | DX: M19.071 Primary osteoarthritis, right ankle and foot (principal); M21.6X1 Other acquired deformities of right foot | CPT/HCPCS: 73610; 73630 ==

== ENCOUNTER 2021-06-16 22:53 | Emergency (ER) | payer OTHER, SELFPAY ==
[2021-06-16 23:11] VITALS: BP 160/105; PULSE 106; RESP 20; TEMP 36.9; O2SAT 93; BMI 38.1
--- NOTE | 2021-06-16 23:31 | XRR_ITS ---
PROCEDURE INFORMATION: Exam: XR Chest Exam date and time: 06/16/2021 11:31 PM Age: 45 years old Clinical indication: Cough and wheezing TECHNIQUE: Imaging protocol: XR of the chest. Views: 1 view. COMPARISON: CT chest [facility] [id number] 01/11/2021 4:18 PM FINDINGS: Lungs: Diffuse interstitial fibrosis. Negative for space consolidation. Pleural spaces: Unremarkable. No pleural effusion. No pneumothorax. Heart/Mediastinum: Unremarkable. No cardiomegaly. Bones/joints: Unremarkable. XR/XR chest 1V portable [id number] IMPRESSION: No definite focal pneumonia is identified, however assessment is very limited given the substantial underlying fibrotic interstitial lung changes. Subtle acute airspace disease could be missed.
--- NOTE | 2021-06-16 23:34 | ED_ITS ---
HPI - URI/Sore Throat General: Chief Complaint: Headache Stated Complaint: congestion, mucus Time Seen by Provider: 06/16/21 23:18 History of Present Illness: HPI Narrative: Patient is a 45-year-old male comes to the ED with cough and sinus congestion and drainage. Patient has a past medical history of sarcoidosis. Patient has a albuterol rescue inhaler as needed for any wheezing or shortness of breath. About 8 days ago he was driving through [facility] and there was a lot of dust and allergens in the air at that time any started developing sinus congestion and nasal congestion and drainage a day later. Patient says symptoms have been going on for the past week. He says his cough is productive of any coughs up a greenish- cheng sputum. He also reports some sinus congestion and drainage with some pain in his face as well. Endorses a headache. Patient says he was tested for Covid couple days ago when test was negative. He is fully vaccinated for COVID-19. Denies any fever, chills, nausea/vomiting, bladder or bowel symptoms or abdominal pain. Associated symptoms: Reports headache(s), nasal congestion and sinus pain (bilateral maxillary); Deny abdominal pain, chills, chest pain, diarrhea, fever(s), nausea or vomiting Review of Systems Const: Denies: fever(s), chills or fatigue Eyes: Denies: change in vision or eye discomfort ENMT: Reports: nasal discharge, nasal congestion and sinus pain (bilateral maxillary); Denies: throat pain or odynophagia Card: Denies: chest pain, palpitations, edema, swelling of feet/ankles, dyspnea on exertion or orthopnea Resp: Reports: productive cough and change in phlegm color (Cheng-oleg green); Denies: dyspnea or non-productive cough GI: Denies: abdominal pain, nausea, vomiting, diarrhea, constipation or hematochezia : Denies: flank pain, difficulty urinating, dysuria or hematuria Musc: Denies: neck pain, back pain or extremity swelling Skin/Breast: Denies: rash or new lesions Neuro: Reports: headache(s); Denies: numbness in extremities or weakness in extremities PFS ED PFSH: Medical History Drug-induced liver injury Lymphadenopathy Sarcoidosis Uveitis Surgical History S/P lymph node biopsy (01/30/21) Right inguinal S/P tonsillectomy Family History Mother Congestive heart failure Hypertension Father Diabetes Social History Smoking and tobacco status: former smoker Alcohol intake: never Household members: spouse History of recent travel: No Physical Exam Const: COMMON NORMALS: no acute distress, patient oriented x3 and alert GENERAL APPEARANCE: cooperative and comfortable HENMT: COMMON NORMALS: normocephalic HEAD & SCALP: normocephalic FACE & SINUS: sinus tenderness maxillary (bilateral) MOUTH: Normal oral and palatal mucosa present THROAT: posterior oropharynx normal and uvula midline Neck/C-Spine: COMMON NORMALS: supple GENERAL: Yes normal visual inspection Resp: COMMON NORMALS: normal respiratory effort, No retractions, No use of accessory muscles and clear to auscultation bilaterally AUSCULTATION: clear to auscultation bilaterally and wheezes expiratory wheezes and scattered wheezes Cardio: COMMON NORMALS: regular rate, regular rhythm, S1 normal heart sound present, S2 normal heart sound present, No gallops present (Cardio), No clicks present (Cardio), No murmurs present (Cardio) and Peripheral pulses 2+ throughout RATE: regular rate RHYTHM: regular rhythm HEART SOUNDS: S1 normal heart sound present and S2 normal heart sound present PERIPHERAL PULSES: Peripheral pulses 2+ throughout GI: COMMON NORMALS: Normal to inspection, nondistended, normoactive bowel sounds present, Soft to palpation, non-tender and no masses PALPATION: Yes Soft to palpation : COMMON NORMALS: Yes no CVA tenderness BLADDER/KIDNEY EXAM: Yes no CVA tenderness Back/Pelvis: COMMON NORMALS: no CVA tenderness Extremity: COMMON NORMALS: normal to inspection Neuro: COMMON NORMALS: patient oriented x3 and moves all extremities SENSORIUM/ORIENTATION: Yes alert Skin: GENERAL SKIN EXAM: dry skin Course Vital Signs: Vital signs: Vital Signs Temperature 98.5 F 06/16/21 23:11 Pulse Rate 106 H 06/16/21 23:11 Respiratory Rate 18 06/17/21 00:54 Blood Pressure 160/105 06/16/21 23:11 Pulse Oximetry 93 06/16/21 23:11 MDM - URI/Sore Throat MDM Narrative: Medical decision making narrative: Patient is a 45-year male comes to the ED with sinus congestion and pain. Past medical history of sarcoidosis. He also reports headache and a productive cough. He was Covid tested several days ago and it was negative. Vitals are stable. Patient has some bilateral scattered wheezing on exam. The rest of exam is benign. Chest x-ray shows no acute pneumonia, but does show some underlying fibrotic interstitial lung changes. Patient was given a DuoNeb breathing treatment and his symptoms improved. He was given a dose of Solu-Medrol and Augmentin while here in the ED. Patient diagnosed with sinusitis and upper respiratory infection with cough and congestion and discharged home with a prescription for prednisone and Augmentin. He was told to use his albuterol inhaler as needed for any shortness of breath or wheezing. Return to ED precautions given. Patient was told to follow-up with PCP in 5 to 7 days reevaluation. Patient understood and agreed with plan. Imaging Data^: CXR: Attestation: I personally reviewed and interpreted this imaging study as follows: Radiologist's impression: [address] [address] XRay Report Signed Patient: Greg Fernández Unit #: [id number] : 1975 Age/Sex: 45 / M ADM Date: 06/16/21 Loc: ER Room/Bed: Attending Dr: Ordering Provider/Ordering MD: Luis Armando Mitchell Date of Service: 06/16/21 Procedure(s): XR chest 1V portable [id number] Accession Number(s): [id number] Report Number: [id number] PROCEDURE INFORMATION: Exam: XR Chest Exam date and time: 06/16/2021 11:31 PM Age: 45 years old Clinical indication: Cough and wheezing TECHNIQUE: Imaging protocol: XR of the chest. Views: 1 view. COMPARISON: CT chest con [id number] 01/11/2021 4:18 PM FINDINGS: Lungs: Diffuse interstitial fibrosis. Negative for space consolidation. Pleural spaces: Unremarkable. No pleural effusion. No pneumothorax. Heart/Mediastinum: Unremarkable. No cardiomegaly. Bones/joints: Unremarkable. XR/XR chest 1V portable [id number] IMPRESSION: No definite focal pneumonia is identified, however assessment is very limited given the substantial underlying fibrotic interstitial lung changes. Subtle acute airspace disease could be missed. Dictated By: Timothy Martin Signed By: Timothy Martin Signed Date/Time: 06/17/21 0003 DD/ [id number] Discharge Plan Discharge Patient Disposition: Home Clinical Impression: Upper respiratory infection with cough and congestion Sinusitis Qualifiers: Sinusitis location: maxillary Chronicity: acute Recurrence: non-recurrent Qualified Code(s): J01.00 - Acute maxillary sinusitis, unspecified Condition: Stable Prescriptions: New Augmentin 500-125 mg tablet 1 tab PO BID 7 Days Qty: 14 RF: 0 prednisone 20 mg tablet 20 mg PO BID 5 Days Qty: 10 RF: 0 No Action ibuprofen 400 mg tablet 400 mg PO Q6H PRN (Reason: Pain) RF: 0 Zyrtec 10 mg capsule 10 mg PO DAILY PRNRF: 0 (DME) Estee AFO See Rx Instructions .Route .MEDSUPPLY Qty: 1 RF: 0 albuterol sulfate [ProAir HFA] 90 mcg/actuation Hfa Aerosol Inhaler 2 puff INHALATION Q6H PRN (Reason: Shortness Of Breath) RF: 0 Discharge Orders: Discharge ED (Routine); Ordered 06/17/21 Ordered By: Luis Armando Mitchell Referrals: Ailyn Hollingsworth MD [Primary Care Provider] - Discharge Diet: Regular Discharge Activity: Increase activity as tolerated Patient Instructions: Sinusitis (ED), Upper Respiratory Infection (ED) Activity Restrictions/Additional Instructions: Follow-up with medical provider as directed in 7 to 10 days for reevaluation. Take medications as prescribed. Return to the ER or your medical provider if condition worsens. Please read and understand discharge instructions. Thank you for choosing [facility] for your healthcare needs today. Please realize this is an emergency room and that we are providing you with a medical screening exam and this may not be complete and all inclusive of all the testing and or work up that you may need to determine your ailment or severity of your illness. It is very important that you follow up as instructed or that you return to the Emergency Department should you have concerns or if your condition changes or worsens in any way. Coding Level of Care Code ED Medical Office Professional Instructor for Eliel Fwjones Exam Comprehensive
[2021-06-17] MEDS: amoxicillin-clav 500-125 mg Tablet 1 TAB PO (00:50)
[2021-06-17 00:54] VITALS: RESP 18
== END 2021-06-17 00:55 | disposition home or self-care (01) ==
PROVIDERS: Emergency Provider Physician Assistant; PCP Family Medicine
DX: J01.00 Acute maxillary sinusitis, unspecified (principal); Z87.891 Personal history of nicotine dependence
CPT/HCPCS: 71045; 96372; 99283; J2930

== ENCOUNTER → 2021-08-18 10:19 | Outpatient (BNVA) | payer OTHER, SELFPAY | PROVIDERS: PCP Family Medicine; Visit Provider Internal Medicine Rheumatology | DX: D86.9 Sarcoidosis, unspecified (principal); Z79.899 Other long term (current) drug therapy; R59.9 Enlarged lymph nodes, unspecified; R59.0 Localized enlarged lymph nodes; R93.89 Abnormal findings on diagnostic imaging of other specified body structures; H20.9 Unspecified iridocyclitis; Z87.891 Personal history of nicotine dependence | CPT/HCPCS: 99214 ==

== ENCOUNTER 2021-09-15 07:46 | Outpatient (CLI) | payer OTHER, SELFPAY ==
--- NOTE | 2021-09-15 08:29 | CT_ITS ---
WS: [id number] CT CHEST TECHNIQUE: Noncontrast CT of the chest with coronal and sagittal reformatted images. CLINICAL INFORMATION: ENLARGED LYMPH NODES COMPARISON: CT January 11, 2021 DLP: 810.[address] scans at [facility] use at least one of these dose optimization techniques: automated e xposure control; mA and/or kV adjustment per patient size (includes targeted exams where dose is matc hed to clinical indication); or iterative reconstruction. FINDINGS: Diffuse reticular pattern throughout both lungs with interlobular septal thickening unchanged in appe arance since January 11, 2021. This is compatible with history of sarcoidosis. No acute pulmonary infilt rates. No focal pneumonia or pleural fluid. No subpleural honeycombing. No new suspicious pulmonary p arenchymal opacities. Enlarged anterior mediastinal and paratracheal lymph nodes are unchanged. No evidence of progression. A few of these have normal fatty cindy. No axillary lymphadenopathy. Adrenal glands are normal. Fatty atrophy of the pancreas. Enlarged lymph nodes in the upper abdomen will be discussed on the abdomina l CT. CT/CT chest wo con [id number] IMPRESSION: 1. Diffuse reticular opacities with interlobular septal thickening unchanged s mark the prior examination compatible with history of sarcoidosis. 2. No new suspicious pulmonary opacities. No focal pneumonia or pleural fluid. 3. Enlarged anterior mediastinal and peribronchial lymph nodes are unchanged. Some of these demonstrate normal fatty cindy. 4. Enlarged lymph nodes in the upper abdomen will be described on the abdomina l CT. 5. No other significant changes compared to previous.
[2021-09-15] MEDS: iohexol 300 mg/mL 100 mL Btl IV (08:53)
--- NOTE | 2021-09-15 09:30 | CT_ITS ---
WS: [id number] CT ABDOMEN CONTRAST TECHNIQUE: Contrast enhanced CT of the abdomen with coronal and sagittal reformatted images. CLINICAL INFORMATION: Z79.899 - Other senior care (current) drug therapy COMPARISON: CT January 11, 2021 DLP: 977.[address] scans at [facility] use at least one of these dose optimization techniques: automated e xposure control; mA and/or kV adjustment per patient size (includes targeted exams where dose is matc hed to clinical indication); or iterative reconstruction. FINDINGS: Hepatomegaly with mild diffuse fatty infiltration of the liver. Normal portal vein and splenic vein. Normal GE junction. Gallbladder appears normal. Multiple enlarged lymph nodes in the upper abdomen al gavin the aaron hepatis and celiac axis unchanged since the prior examination. Normal GE junction. Fatt y atrophy of the pancreas. Normal portal vein and splenic vein. Multiple hypodense lesions in the spl een unchanged compared to previous. Adrenal glands are normal. Normal renal parenchymal enhancement. No hydronephrosis. Normal caliber abdominal aorta. A few shotty periaortic lymph nodes. Fat-containing umbilical hernia. No herniated bowel. Disc space narrowing L5-S1. Small lytic lesion L4 vertebral body unchanged. CT/CT abdomen w con* [id number] IMPRESSION: 1. No significant changes compared to January 11, 2021. 2. Hepatomegaly with mild diffuse fatty infiltration. 3. Stable hypodense lesions in the spleen compatible with history of sarcoidos is. 4. Enlarged upper abdominal lymph nodes along the aaron hepatis,celiac axis an d GE junction are unchanged. 5. No hydronephrosis in either kidney. Normal renal parenchymal enhancement. 6. No other significant findings.
== END 2021-09-15 07:47 | disposition home or self-care (01) ==
LOC: RAD 07:48
PROVIDERS: PCP Family Medicine; Visit Provider Internal Medicine Rheumatology
DX: Z79.899 Other long term (current) drug therapy (principal); D86.9 Sarcoidosis, unspecified; R59.9 Enlarged lymph nodes, unspecified; R16.0 Hepatomegaly, not elsewhere classified; K76.0 Fatty (change of) liver, not elsewhere classified
CPT/HCPCS: 71250; 74160

== ENCOUNTER 2021-11-16 07:19 | Emergency (ER) | payer OTHER, SELFPAY ==
[2021-11-16 07:24] VITALS: BP 166/104; PULSE 75; RESP 16; TEMP 36.8; O2SAT 94; BMI 37.2
--- NOTE | 2021-11-16 07:36 | CTR_ITS ---
PROCEDURE INFORMATION: Exam: CT Abdomen And Pelvis Without Contrast Exam date and time: 11/16/2021 8:05 AM Age: 46 years old Clinical indication: Right flank pain. TECHNIQUE: Imaging protocol: Computed tomography of the abdomen and pelvis without contrast. Radiation optimization: All CT scans at this facility use at least one of these dose optimization techniques: automated exposure control; mA and/or kV adjustment per patient size (includes targeted exams where dose is matched to clinical indication); or iterative reconstruction. COMPARISON: CT abdomen w con* [id number] 09/15/2021 8:34 AM RADIATION DOSE METRICS: Total DLP (mGy-cm): 2098.67 FINDINGS: Lungs: There is peribronchial wall thickening at the lung bases. No pericardial effusion. No hiatal hernia. There is interlobular and intra lobular septal thickening at the lung bases that appears slightly worsened; this likely relates to sarcoidosis. Lymphadenopathy in the inferior posterior mediastinum is similar. One of these lymph nodes measures 1.4 x 3.1 cm. Liver: The liver is enlarged measuring 19.2 cm. Gallbladder and bile ducts: The gallbladder is unremarkable. Pancreas: The pancreas is unremarkable. Spleen: Spleen is enlarged measuring 14.5 cm. Hypodense lesions in the spleen are grossly similar to prior Adrenal glands: The adrenal glands are unremarkable. Kidneys and ureters: There is an obstructive 3.6 mm stone in the distal right ureter with mild resultant hydronephrosis. Stomach and bowel: The stomach and small bowel are unremarkable. Colonic diverticulosis without evidence of acute diverticulitis. Appendix: The appendix is not identified. Intraperitoneal space: No free intraperitoneal air. Vasculature: No abdominal aortic aneurysm. Lymph nodes: A periportal lymph node measures 2.1 x 4.5 cm. A celiac axis lymph node measures 1.5 x 1.6 cm. An aortocaval lymph node measures 1.4 x 1.5 cm. A right external iliac lymph node measures 1.6 x 2.2 cm. A left external iliac lymph node measures 1.9 x 2.7 cm. A left inguinal lymph node measures 1.6 x 1.7 cm. A right inguinal lymph node measures 1.2 x 1.6 cm. Urinary bladder: The bladder is decompressed. Bladder wall is thickened which likely reflects underdistention. Correlate with urinalysis. Reproductive: The prostate measures 3.3 x 4.8 cm. Bones/joints: No acute fracture is seen. Soft tissues: Small fat containing right inguinal hernia. Small to moderate fat containing umbilical hernia. CT/CT kidney stone [id number] IMPRESSION: 1. Obstructive 3.6 mm stone in the distal right ureter with mild resultant hydronephrosis. 2. Hepatosplenomegaly with approximately unchanged splenic lesions. There is periportal, retroperitoneal, bilateral pelvic and bilateral inguinal lymphadenopathy. Lymphadenopathy visualized on prior studies is similar. Visualized mediastinal lymphadenopathy is similar. 3. The bladder wall is thickened which likely reflects underdistention. Correlate with urinalysis. 4. There is mild peribronchial wall thickening; query viral infection/bronchitis, chronic bronchitis and/or asthma. 5. Interlobular and intra lobular septal thickening at the lung bases that appears slightly worsened; this likely relates to known sarcoidosis.
--- NOTE | 2021-11-16 07:36 | W.ED.BACK ---
HPI - Back Pain/Injury General: Chief Complaint: Back Pain/Injury Stated Complaint: back pain; urinary pressure/no output Time Seen by Provider: 11/16/21 07:34 Source: patient Mode of arrival: ambulatory Limitations: no limitations History of Present Illness: 46-year-old male who states he woke up this morning at 6 AM with a sharp right-sided flank pain he states the pain is severe in nature rates it a 9 out of 10 he states he is also had nausea and vomiting because of the pain. Denies any history of kidney stones denies any dysuria denies any radiation of his pain. Associated symptoms: Reports abdominal pain, nausea and vomiting; Deny chills or fever(s) Review of Systems Const: Denies: fever(s), chills, body aches or change in appetite Eyes: Denies: blurry vision or eye discomfort ENMT: Denies: throat pain or dental pain Card: Denies: chest pain Resp: Denies: dyspnea GI: Reports: abdominal pain, nausea and vomiting : Reports: flank pain Musc: Denies: neck pain or back pain Skin/Breast: Denies: rash Neuro: Denies: headache(s) Psych: Denies: depression Hcoco/Lymph: Denies: easy bruising All/Imm: Denies: urticaria PFSH ED PFSH: Medical History Drug-induced liver injury Intra-abdominal lymphadenopathy Lymphadenopathy Sarcoidosis Uveitis in remission Surgical History S/P lymph node biopsy (01/30/21) Right inguinal S/P tonsillectomy Family History Mother Congestive heart failure Hypertension Father Diabetes Social History Smoking and tobacco status: former smoker Alcohol intake: never Household members: spouse History of recent travel: No Physical Exam Const: COMMON NORMALS: no acute distress, patient oriented x3 and healthy appearing HENMT: COMMON NORMALS: normocephalic and atraumatic HEAD & SCALP: normocephalic and atraumatic Eye: COMMON NORMALS: Equal, round and reactive pupils present and EOMs intact bilaterally PUPIL: Yes Equal, round and reactive pupils present Neck/C-Spine: COMMON NORMALS: full ROM and supple Chest: COMMONS NORMALS: normal inspection of the chest and normal palpation of entire chest wall Resp: COMMON NORMALS: normal respiratory effort, No retractions, No use of accessory muscles and clear to auscultation bilaterally AUSCULTATION: clear to auscultation bilaterally Cardio: COMMON NORMALS: regular rate, regular rhythm and No murmurs present (Cardio) RATE: regular rate RHYTHM: regular rhythm GI: COMMON NORMALS: Normal to inspection, nondistended, normoactive bowel sounds present, Soft to palpation, non-tender and no masses PALPATION: Yes Soft to palpation Extremity: COMMON NORMALS: normal to inspection and full ROM Neuro: COMMON NORMALS: patient oriented x3, moves all extremities and no focal motor deficits Psych: COMMON NORMALS: mental status grossly normal, Normal thought process present and cooperative THOUGHT PROCESS: Normal thought process present Skin: COMMON NORMALS: no rashes or lesions noted and no wounds GENERAL SKIN EXAM: no rashes or lesions noted Course Vital Signs: Vital signs: Vital Signs Temperature 98.3 F 11/16/21 07:24 Pulse Rate 75 11/16/21 07:59 Respiratory Rate 18 11/16/21 07:59 Blood Pressure 181/121 11/16/21 07:59 Pulse Oximetry 96 11/16/21 07:59 MDM - Back Pain/Injury Medical Decision Making Patient presents here with a kidney stone his pain is much improved he is stable for discharge we will get him follow-up with urology and return if worsening he understands agrees to plan. Labs : 11/16/21 08:00 11/16/21 08:00 Radiology Impressions Abdomen/Pelvis CT 11/16/21 07:36 IMPRESSION: 1. Obstructive 3.6 mm stone in the distal right ureter with mild resultant hydronephrosis. 2. Hepatosplenomegaly with approximately unchanged splenic lesions. There is periportal, retroperitoneal, bilateral pelvic and bilateral inguinal lymphadenopathy. Lymphadenopathy visualized on prior studies is similar. Visualized mediastinal lymphadenopathy is similar. 3. The bladder wall is thickened which likely reflects underdistention. Correlate with urinalysis. 4. There is mild peribronchial wall thickening; query viral infection/bronchitis, chronic bronchitis and/or asthma. 5. Interlobular and intra lobular septal thickening at the lung bases that appears slightly worsened; this likely relates to known sarcoidosis. Laboratory Results WBC 7.7 10^3/uL (4.0-10.0) 11/16/21 08:00 RBC 4.95 10^6/uL (4.1-5.3) 11/16/21 08:00 Hgb 15.4 g/dL (11.7-16.6) 11/16/21 08:00 Hct 45.3 % (42.0-52.0) 11/16/21 08:00 MCV 91.5 fl (80-94) 11/16/21 08:00 MCH 31.1 pg (28.0-34.0) 11/16/21 08:00 MCHC 34.0 g/dL (30.0-36.0) 11/16/21 08:00 RDW 13.9 % (12.1-15.1) 11/16/21 08:00 Plt Count 287 10^3/cmm (130-400) 11/16/21 08:00 MPV 9.8 fL (7.4-10.4) 11/16/21 08:00 Neut % (Auto) 78.0 % 11/16/21 08:00 Lymph % (Auto) 10.1 % 11/16/21 08:00 Barber % (Auto) 9.8 % 11/16/21 08:00 Eos % (Auto) 1.4 % 11/16/21 08:00 Baso % (Auto) 0.6 % 11/16/21 08:00 Neut # (Auto) 6.01 10^3/uL (1.8-7.7) 11/16/21 08:00 Lymph # (Auto) 0.8 10^3/uL (0.8-4.8) 11/16/21 08:00 Barber # (Auto) 0.8 10^3/uL (0.2-0.9) 11/16/21 08:00 Eos # (Auto) 0.1 10^3/uL (0.0-0.8) 11/16/21 08:00 Baso # (Auto) 0.1 10^3/uL (0.0-0.1) 11/16/21 08:00 Nucleated RBC % (auto) 0 % 11/16/21 08:00 Nucleated RBCs # 0.0 /100WBC 11/16/21 08:00 Sodium 140 mmol/L (136-145) 11/16/21 08:00 Potassium 4.5 mmol/L (3.5-5.1) 11/16/21 08:00 Chloride 104 mmol/L (98-107) 11/16/21 08:00 Carbon Dioxide 24 mmol/L (22-29) 11/16/21 08:00 Anion Gap 16.5 (5-19) 11/16/21 08:00 BUN 15 mg/dL (6-20) 11/16/21 08:00 Creatinine 1.1 mg/dL (0.7-1.2) 11/16/21 08:00 GFR Calculation 71.4 mL/min (90-130) L 11/16/21 08:00 Glucose 126 mg/dL (65-115) H 11/16/21 08:00 Calculated Osmolality 292 mOsm/kg (285-295) 11/16/21 08:00 Calcium 10.0 mg/dL (8.5-10.5) 11/16/21 08:00 Total Bilirubin 0.5 mg/dL (0.15-1.2) 11/16/21 08:00 AST 21 U/L (0-40) 11/16/21 08:00 ALT 26 U/L (0-41) 11/16/21 08:00 Alkaline Phosphatase 115 IU/L (40-130) 11/16/21 08:00 Total Protein 7.5 g/dL (6.6-8.7) 11/16/21 08:00 Albumin 4.3 g/dL (3.5-5.2) 11/16/21 08:00 Globulin 3.2 g/dL (1.3-4.6) 11/16/21 08:00 Lipase 19 U/L (13-60) 11/16/21 08:00 Urine Color Yellow (Yellow) 11/16/21 08:00 Urine Appearance Sl hazy (CLEAR) 11/16/21 08:00 Urine pH 5 (5-7) 11/16/21 08:00 Ur Specific Foster 1.030 (1.005-1.030) 11/16/21 08:00 Urine Protein Neg (Negative) 11/16/21 08:00 Urine Glucose (UA) Norm (Normal) 11/16/21 08:00 Urine Ketones Negative (Negative) 11/16/21 08:00 Urine Blood 3+ (Negative) H 11/16/21 08:00 Urine Nitrate Negative (Negative) 11/16/21 08:00 Urine Bilirubin Neg (Negative) 11/16/21 08:00 Urine Urobilinogen Norm mg/dL (Negative) 11/16/21 08:00 Ur Leukocyte Esterase Negative (Negative) 11/16/21 08:00 Urine RBC 25-40 /hpf (0-2) H 11/16/21 08:00 Urine WBC 0-4 /hpf (0-5) H 11/16/21 08:00 Ur Squamous Epith Cells Rare /hpf (0-5) 11/16/21 08:00 Calcium Oxalate Crystal 0-4 /hpf H 11/16/21 08:00 Amorphous Sediment Not Reportable 11/16/21 08:00 Urine Bacteria 1+ /hpf (NONE) H 11/16/21 08:00 Discharge Plan Discharge Patient Disposition: Home Clinical Impression: Kidney stone Condition: Stable Prescriptions: New hydrocodone-acetaminophen 5-325 mg tablet 1 tab PO Q6H PRN (Reason: pain) Qty: 14 0RF ondansetron 4 mg tablet,disintegrating 4 mg PO Q6H PRN (Reason: nausea and vomiting) Qty: 14 0RF Flomax 0.4 mg capsule 0.4 mg PO DAILY Qty: 5 0RF No Action ibuprofen 400 mg tablet 400 mg PO Q6H PRN (Reason: Pain) 0RF Zyrtec 10 mg capsule 10 mg PO DAILY PRN0RF (DME) [place] [facility] See Rx Instructions .Route .MEDSUPPLY Qty: 1 0RF Rx Instructions: As directed with accommodating shoes albuterol sulfate [ProAir HFA] 90 mcg/actuation Hfa Aerosol Inhaler 2 puff INHALATION Q6H PRN (Reason: Shortness Of Breath) 0RF Discharge Orders: Discharge ED (Routine); Ordered 11/16/21 Ordered By: Jonah Ahuja Referrals: Papi Philip MD [Physician] - 1-3 days Ailyn Hollingsworth MD [Primary Care Provider] - Discharge Diet: Advance as tolerated Discharge Activity: Resume usual activity Patient Instructions: Kidney Stones (ED), Opioid Safety Coding Level of Care Code ED Director Of Sales And Marketing for Chg Fwd Exam Comprehensive
[2021-11-16 07:55] VITALS: RESP 18; O2SAT 96
[2021-11-16] MEDS: HYDROmorphone 1 mg/mL INJ 1 mL IVP (07:55)
[2021-11-16] MEDS: ondansetron 2 mg/ML SDV 2 mL 4 MG IVP (07:56)
[2021-11-16 07:59] VITALS: BP 181/121; PULSE 75; RESP 18; O2SAT 96
[2021-11-16] MEDS: sodium chloride 0.9% 1,000 ML 999 ML IV (07:59)
[2021-11-16 08:11] LABS: Basophils # 0.1 10^3/uL (0.0-0.1); Basophils % 0.6 %; Eosinophils # 0.1 10^3/uL (0.0-0.8); Eosinophils % 1.4 %; Hematocrit 45.3 % (42.0-52.0); Hemoglobin 15.4 g/dL (11.7-16.6); Lymphocytes # 0.8 10^3/uL (0.8-4.8); Lymphocytes % 10.1 %; Mean Corpuscular Hemoglobin 31.1 pg (28.0-34.0); Mean Corpuscular Volume 91.5 fl (80-94); Mean Platelet Volume 9.8 fL (7.4-10.4); Monocytes # 0.8 10^3/uL (0.2-0.9); Monocytes % 9.8 %; Neutrophils # 6.01 10^3/uL (1.8-7.7); Nucleated Red Blood Cells % 0 %; Platelet Count 287 10^3/cmm (130-400); Red Blood Count 4.95 10^6/uL (4.1-5.3); Red Cell Distribution Width 13.9 % (12.1-15.1); White Blood Count 7.7 10^3/uL (4.0-10.0)
[2021-11-16 08:40] LABS: Alanine Aminotransferase 26 U/L (0-41); Albumin Level 4.3 g/dL (3.5-5.2); Alkaline Phosphatase 115 IU/L (40-130); Aspartate Amino Transferase 21 U/L (0-40); Blood Urea Nitrogen 15 mg/dL (6-20); Carbon Dioxide 24 mmol/L (22-29); Chloride 104 mmol/L (98-107); Globulin 3.2 g/dL (1.3-4.6); Glomerular Filtration Rate 71.4 mL/min (90-130); Glucose 126 mg/dL (65-115); Lipase 19 U/L (13-60); Osmolality Calculated 292 mOsm/kg (285-295); Sodium 140 mmol/L (136-145); Total Bilirubin 0.5 mg/dL (0.15-1.2); Total Protein 7.5 g/dL (6.6-8.7); Urine Appearance SL Hazy (CLEAR); Urine Color Yellow (Yellow); pH Urine 5 (5-7)
[2021-11-16 08:41] LABS: Add Urine Culture? Yes; Add Urine Microscopic? YES; Bacteria Urine 1+ /hpf; Bilirubin Urine Neg (Negative); Blood Urine 3+ (Negative); Calcium Oxalate Crystals Urine 0-4 /hpf; Glucose Urine UA Norm (Normal); Ketones Urine Negative (Negative); Leukocyte Esterase Urine Negative (Negative); Nitrate Urine Negative (Negative); Protein Urine Neg (Negative); RBC Urine 25-40 /hpf (0-2); Squamous Epithelial Cell Urine RARE /hpf (0-5); Urobilinogen Urine Norm (Negative); WBC Urine 0-4 /hpf (0-5)
[2021-11-16 08:50] LABS: Anion Gap 16.5 (5-19); Potassium 4.5 mmol/L (3.5-5.1)
[2021-11-16 09:04] VITALS: BP 184/96; PULSE 96; RESP 18; TEMP 36.6; O2SAT 96
--- NOTE | 2021-11-17 09:05 | DCPLANNER ---
Addendum entered by Cassandra Padilla 01/07/22 15:54: Patients appointment has been cancelled. Original Note: technical support manager had message to schedule a follow up appointment for patient with urology. technical support manager sent patients information to the front office staff at urology. Patients information will be printed and reviewed. Clinic will call patient with appointment information.
== END 2021-11-16 09:06 | disposition home or self-care (01) ==
PROVIDERS: Emergency Provider Emergency Medicine; PCP Family Medicine
DX: N20.0 Calculus of kidney (principal)
CPT/HCPCS: 74176; 80053; 81001; 83690; 85025; 87086; 96374; 96375; 99284; J1170; J2405; J7030

== ENCOUNTER → 2021-12-15 10:08 | Outpatient (BNVA) | payer OTHER, SELFPAY | PROVIDERS: PCP Family Medicine; Referring Provider Family Medicine; Visit Provider Surgery | DX: K57.92 Diverticulitis of intestine, part unspecified, without perforation or abscess without bleeding (principal) | CPT/HCPCS: 99203; 99213 ==

== ENCOUNTER → 2022-01-12 13:07 | Outpatient (BNVA) | payer OTHER, SELFPAY | PROVIDERS: PCP Family Medicine; Visit Provider Podiatrist Foot & Ankle Surgery | DX: M25.571 Pain in right ankle and joints of right foot (principal); G89.29 Other chronic pain; M21.541 Acquired clubfoot, right foot; M25.371 Other instability, right ankle; M19.179 Post-traumatic osteoarthritis, unspecified ankle and foot | CPT/HCPCS: 99214 ==

== ENCOUNTER → 2022-02-09 14:24 | Outpatient (BNVA) | payer OTHER, SELFPAY | PROVIDERS: PCP Family Medicine; Visit Provider Internal Medicine Rheumatology | DX: D86.9 Sarcoidosis, unspecified (principal); Z79.899 Other long term (current) drug therapy; Z71.89 Other specified counseling; Z87.891 Personal history of nicotine dependence | CPT/HCPCS: 80076; 82565; 85025; 86140; 99214 ==

== ENCOUNTER 2022-02-18 07:29 | Day surgery (SDC) | payer OTHER, SELFPAY ==
[2022-02-16 10:27] VITALS: BMI 39.9
[2022-02-18 07:51] VITALS: BP 148/100; PULSE 79; RESP 18; TEMP 36.5; O2SAT 95
[2022-02-18] MEDS: sodium chloride 0.9% 1,000 ML 30 ML IV (08:07)
--- NOTE | 2022-02-18 08:39 | P.HP_ITS ---
Providers/Chief Complaint Primary Care Provider: Ailyn Hollingsworth MD Chief Complaint: Colon cancer screening History of Present Illness Greg Fernández is a 46 year old male here for his first colonoscopy Review of Systems General: Reports: 10 or more systems reviewed and unremarkable except in HPI and below Medications/Allergies Home Medications Medication Instructions Recorded Confirmed Last Taken Type ibuprofen 400 mg tablet 400 mg PO Q6H PRN Pain 07/11/19 02/18/22 02/02/22 History albuterol sulfate 90 mcg/actuation 2 puff inhalation Q6H PRN 01/11/21 02/18/22 02/11/22 History aerosol inhaler (ProAir HFA) Shortness Of Breath [place] [facility] #1 ea 03/12/21 02/09/22 Unknown Rx cetirizine 10 mg capsule (Zyrtec) 10 mg PO DAILY PRN Allergy Symptoms 03/12/21 02/18/22 12/09/21 History cyclobenzaprine 5 mg tablet 5 mg PO ONCE PRN Muscle Spasm 12/15/21 02/18/22 02/04/22 History Allergies Allergy/AdvReac Type Severity Reaction Status Date / Time azathioprine AdvReac Severe liver Verified 02/18/22 07:50 failure PFSH Acute PFSH: Medical History Drug-induced liver injury Intra-abdominal lymphadenopathy Lymphadenopathy Sarcoidosis Uveitis in remission Surgical History S/P lymph node biopsy (01/30/21) Right inguinal S/P tonsillectomy Family History Mother Congestive heart failure Hypertension Father Diabetes Social History Smoking and tobacco status: former smoker Alcohol intake: never Household members: spouse History of recent travel: No Vitals/I&O/Wt Last Vital Signs Temp 97.7 F 02/18/22 07:51 Pulse 79 02/18/22 07:51 Resp 18 02/18/22 07:51 BP 148/100 02/18/22 07:51 Pulse Ox 95 02/18/22 07:51 O2 Del Method 02/18/22 07:51 Weight last 48 hrs Weight 320 lb Physical Exam Narrative: General : Patient is well developed , no acute distress, oriented x3 Head : Normal cephalic, a-traumatic. Ears : Pinnae and external canal are normal. Hearing is normal. Eyes : PERRLA, Sclera and injection are normal. No conjunctival discharge. Nose : Mucous membranes are without erythema. Throat : buccal mucosa is normal, gums are without significant recession or hypertrophy. Lungs : Equal chest rise bilaterally, no use of accessory muscles, trachea is midline. Cor : Rate and rhythm are normal. Abdomen : Soft, ND, NT, no g/r/m Extremities : No edema, no cyanosis or clubbing, dorsalis pedis pulses are present bilaterally, non-tender to palpation of calves. Upper extremities are normal bilaterally. Back : non-tender to palpation, no CVA tenderness. Neuro : CN II - XII intact, Upper and lower extremities have equal and full strength A&P Assessment and plan (1) Colon cancer screening: Status: Acute Plan Colonoscopy The risks and benefits of the procedure, including bleeding, infection, intestinal perforation requiring surgery, missed lesion, or explained to the patient. He is understanding of the risks and wishes to proceed. Attestations Medical Necessity Statement*: Will go home Coding Level of Care Code Acute Eyeglass Lens Cutter for g Fwd Diagnoses Colon cancer screening Z12.11
--- NOTE | 2022-02-18 09:00 | P.ANESASSM_ITS ---
Pre-Anesthetic Assessment Height/Weight: Height 1.91 m Weight 145.15 kg Temp Pulse Resp BP Pulse Ox O2 Del Method 97.7 F 79 18 148/100 95 02/18/22 07:51 02/18/22 07:51 02/18/22 07:51 02/18/22 07:51 02/18/22 07:51 02/18/22 07:51 Preop Diagnosis: generalized lymphadenopathy Operation Date: 02/18/22 09:00 Proposed Procedures p Colonoscopy [id number].[id number](Not Applicable) - Phoenix Brown DO Familial anesthetic complications: None Was Beta Jessica taken within 24 hours: N/A Was Clonidine taken within 24 hours: N/A Last intake: Intake Last Liquid Date 02/17/22 Last Liquid Time 20:00 Last Solid Date 02/16/22 Last Solid Time 21:30 Social No alcohol and No tobacco Exam alert, oriented x 3, clear to auscultation bilaterally and regular rate & rhythm Airway Mallampati: Class III Dentition: full Hepatic hx liver toxicty associated w/ azathioprine use Metabolic Morbid Obesity Musc/skel sarcoidosis Anesthetic Plan ASA status: 3 Anesthesia: MAC Risk of > 500 ml blood loss (7ml/kg in children): No Medications/Allergies Home Medications Medication Instructions Recorded Confirmed Last Taken Type ibuprofen 400 mg tablet 400 mg PO Q6H PRN Pain 07/11/19 02/18/22 02/02/22 History albuterol sulfate 90 mcg/actuation 2 puff inhalation Q6H PRN 01/11/21 02/18/22 02/11/22 History aerosol inhaler (ProAir HFA) Shortness Of Breath [facility] #1 ea 03/12/21 02/09/22 Unknown Rx cetirizine 10 mg capsule (Zyrtec) 10 mg PO DAILY PRN Allergy Symptoms 03/12/21 02/18/22 12/09/21 History cyclobenzaprine 5 mg tablet 5 mg PO ONCE PRN Muscle Spasm 12/15/21 02/18/22 02/04/22 History Allergies Allergy/AdvReac Type Severity Reaction Status Date / Time azathioprine AdvReac Severe liver Verified 02/18/22 07:50 failure Current Medications Generic Name Dose Route Start Last Admin Trade Name Freq PRN Reason Stop Dose Admin Sodium Chloride 1,000 mls @ 30 mls/hr 02/18/22 07:45 02/18/22 08:07 Sodium Chloride 0.9% IV 02/19/22 07:44 30 mls/hr .Q24H CHRISTAL Administration PFSH Anesthesia Medical History Drug-induced liver injury Intra-abdominal lymphadenopathy Lymphadenopathy Sarcoidosis Uveitis in remission Surgical History S/P lymph node biopsy (01/30/21) Right inguinal S/P tonsillectomy Family History Mother Congestive heart failure Hypertension Father Diabetes Social History Smoking and tobacco status: former smoker Alcohol intake: never Household members: spouse History of recent travel: No Data Anesthesia Cardiac Studies: Echocardiogram Ultrasound 07/25/19
[2022-02-18 09:49] VITALS: BP 142/104; PULSE 66; RESP 16; O2SAT 92
[2022-02-18 10:05] VITALS: BP 127/82; PULSE 58; RESP 16; O2SAT 96
--- NOTE | 2022-02-18 12:13 | ANE.PACU2 ---
Inpatient post-anesthesia follow up: Airway intact: Yes Vital signs: Temperature 97.7 F Pulse Rate 58 Respiratory Rate 16 Blood Pressure 127/82 Pulse Oximetry 96 Oxygen Delivery Me thod Room Air Oxygen Flow Rate Fraction of Inspir ed Oxygen Hydration adequate: Yes Nausea and vomiting: No Pain level: 1 Mental status: Baseline
== END 2022-02-18 10:15 | disposition home or self-care (01) ==
PROVIDERS: PCP Family Medicine; Visit Provider Surgery
PROC: 0DJD8ZZ Inspection of Lower Intestinal Tract, Via Natural or Artificial Opening Endoscopic (ICD-10-PCS; CPT 45378; principal; 2022-02-18 09:00)
DX: Z12.11 Encounter for screening for malignant neoplasm of colon (principal); R59.0 Localized enlarged lymph nodes; E66.01 Morbid (severe) obesity due to excess calories; Z87.891 Personal history of nicotine dependence; Z68.41 Body mass index [BMI] 40.0-44.9, adult
CPT/HCPCS: 45378; J2704; J7030

== ENCOUNTER 2022-08-24 13:39 | Outpatient (CLI) | payer OTHER, SELFPAY ==
--- NOTE | 2022-08-24 13:53 | CT_ITS ---
WS: [id number] CT CHEST WITH INTRAVENOUS CONTRAST HISTORY: Possible mass, pneumonia. History of sarcoidosis . TECHNIQUE: Contiguous 5 mm axial imaging performed on the thorax. Coronal and sagittal reformats are submitted. All CT scans at [facility] use at least one of these dose optimization techniques: automated exposure control; mA and/or kV adjustment per patient size (includes targeted exams where dose is matched to clinical indication); or iterative reconstruction. CONTRAST: Omnipaque 350; 95 mL IV. DLP: 763.84 mGy.cm COMPARISON: 09/15/2021 and 11/16/2021 Lungs and central airway: Extensive bilateral diffuse lobular and intralobular septal thickening with prominent reticulations. New 5 mm noncalcified nodule in the RIGHT upper lobe. There are a few small scattered micronodules which are pleural and subpleural in position. No mass. No pneumonia or consol idation. Small amount of mucous-like debris in the RIGHT main bronchus. Pleura: Normal. No pleural effusion. Heart and pericardium: Normal size heart with no pericardial effusion. Mediastinum and cindy: Numerous mediastinal and hilar lymph nodes are reidentified. Lymph nodes appear s to be smaller in size and decreased in number as compared to 09/15/2021. Much improved bilateral hil ar lymphadenopathy. Largest lymph node now at the RIGHT hilum is 15 mm. This lymph node measured 20 m m on the prior exam. Vessels: Normal size aortic and pulmonary artery. No coronary artery calcifications. Chest wall and lower neck: No soft tissue masses. Upper abdomen: Mildly contracted gallbladder. Previously described lymph nodes in the upper abdomen s urrounding the celiac axis and in the aaron hepatis have significantly decreased in size. The largest lymph node in the aaron hepatis measures 15 mm as compared to 20 mm on the prior study. Previous the described low-attenuation splenic lesion is identified. This lesion measures 15 mm. Stomach is diste nded. Osseous structures: No destructive process. CT/CT chest w con* [id number] IMPRESSION: 1. No pulmonary mass or pneumonia. 2. New 5 mm ovoid nodule RIGHT upper lobe. This can be reevaluated in 3 months with noncontrast chest CT. 3. Stable diffuse lobular and interlobular septal thickening consistent with a history of sarcoidosis. 4. Mediastinal, hilar and upper abdominal lymphadenopathy has moderately impro xochilt since 09/15/2021.
[2022-08-24] MEDS: iohexol 350 mg/mL 500 mL Btl (per mL) IV (14:07)
== END 2022-08-24 13:40 | disposition home or self-care (01) ==
PROVIDERS: PCP Family Medicine; Visit Provider Family Medicine
DX: Z01.89 Encounter for other specified special examinations (principal); R91.1 Solitary pulmonary nodule
CPT/HCPCS: 71260; Q9967

== ENCOUNTER → 2022-09-14 09:07 | Outpatient (BNVA) | payer OTHER, SELFPAY | PROVIDERS: PCP Family Medicine; Visit Provider Internal Medicine Rheumatology | DX: H20.9 Unspecified iridocyclitis (principal); D86.9 Sarcoidosis, unspecified; Z79.899 Other long term (current) drug therapy; Z71.89 Other specified counseling; R59.0 Localized enlarged lymph nodes | CPT/HCPCS: 36415; 80076; 82565; 85025; 86140; 99214 ==

== ENCOUNTER → 2022-10-12 12:20 | Outpatient (BNVA) | payer OTHER, SELFPAY | PROVIDERS: PCP Family Medicine; Visit Provider Internal Medicine Cardiovascular Disease | DX: R03.0 Elevated blood-pressure reading, without diagnosis of hypertension (principal) | CPT/HCPCS: 99213 ==

== ENCOUNTER 2022-11-24 09:18 | Outpatient (CLI) | payer OTHER, SELFPAY ==
--- NOTE | 2022-11-24 09:45 | CT_ITS ---
WS: [id number] CT chest wo con [id number] HISTORY: 3 MONTH FOLLOW UP LUNG NODULE TECHNIQUE: Axial imaging performed through the thorax. Coronal and sagittal reformats are submitted. All CT scans at [facility] use at least one of these dose optimization techniques: automated exposure control; mA and/or kV adjustment per patient size (includes targeted exams where dose is mat ched to clinical indication); or iterative reconstruction. CONTRAST: None DLP: 648.51 mGy.cm COMPARISON: 08/24/2022, 09/16/2019 and 01/11/2021 Lungs and central airway: By history patient has known sarcoidosis. There is interstitial and bronchi al wall thickening and nodularity. Previously described 5 mm nodule in the RIGHT upper lobe is unchan ged. There are a few additional smaller nodules throughout the lungs which are stable. No new or incr easing mass or nodule. Pleura: Normal. No pleural effusion. Heart and pericardium: Normal size heart with no pericardial effusion. Mediastinum and cindy: Small but numerous mediastinal and hilar lymph nodes. Not increasing in size si nce the prior examinations. Vessels: Normal size aortic and pulmonary artery. No coronary artery calcifications. Chest wall and lower neck: No soft tissue masses. Upper abdomen: No adrenal mass. Mild hepatic steatosis. Osseous structures: No destructive process. CT/CT chest wo con [id number] IMPRESSION: 1. No interval change in a 5 mm RIGHT upper lobe nodule. Suggest follow-up [address] evaluation. 2. Additional interstitial and peribronchial thickening is stable. 3. No enlarging or new lymph nodes.
== END 2022-11-24 09:19 | disposition home or self-care (01) ==
LOC: RAD 09:20
PROVIDERS: PCP Family Medicine; Visit Provider Family Medicine
DX: R91.1 Solitary pulmonary nodule (principal)
CPT/HCPCS: 71250

== ENCOUNTER → 2022-12-21 12:54 | Outpatient (BNVA) | payer OTHER, SELFPAY | PROVIDERS: PCP Family Medicine; Referring Provider Family Medicine; Visit Provider Nurse Practitioner Family | DX: B35.1 Tinea unguium (principal); B35.2 Tinea manuum; B35.3 Tinea pedis; L81.4 Other melanin hyperpigmentation; D22.5 Melanocytic nevi of trunk; L85.3 Xerosis cutis; L21.8 Other seborrheic dermatitis; Z71.89 Other specified counseling | CPT/HCPCS: 99204 ==

== ENCOUNTER → 2023-01-12 08:07 | Outpatient (BNVA) | payer OTHER, SELFPAY | PROVIDERS: PCP Family Medicine; Visit Provider Podiatrist Foot & Ankle Surgery | DX: M21.541 Acquired clubfoot, right foot (principal); M25.371 Other instability, right ankle; M19.171 Post-traumatic osteoarthritis, right ankle and foot | CPT/HCPCS: 99213 ==

== ENCOUNTER → 2023-02-24 07:46 | Outpatient (BNVA) | payer OTHER, SELFPAY | PROVIDERS: PCP Family Medicine; Visit Provider Podiatrist Foot & Ankle Surgery | DX: M25.371 Other instability, right ankle; M19.171 Post-traumatic osteoarthritis, right ankle and foot; M21.541 Acquired clubfoot, right foot; Z79.899 Other long term (current) drug therapy; D86.9 Sarcoidosis, unspecified; H20.9 Unspecified iridocyclitis; R59.0 Localized enlarged lymph nodes; Z71.89 Other specified counseling | CPT/HCPCS: 36415; 73610; 80076; 82565; 85025; 85651; 86140; 99213; 99214 ==

== ENCOUNTER → 2023-03-01 10:36 | Outpatient (BNVA) | payer OTHER, SELFPAY | PROVIDERS: PCP Family Medicine; Visit Provider Nurse Practitioner Family | DX: B35.3 Tinea pedis (principal); L21.8 Other seborrheic dermatitis; B35.1 Tinea unguium; D86.9 Sarcoidosis, unspecified | CPT/HCPCS: 99214 ==

== ENCOUNTER 2023-03-25 14:52 | Outpatient (CLI) | payer OTHER, SELFPAY ==
--- NOTE | 2023-03-25 15:00 | CT_ITS ---
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 DLP: 146.72 mGy.cm COMPARISON: 01/16/2019 Marked deformity involving the ankle joint with mild progression since 01/16/2019. May be posttraumati c or advanced degenerative osteoarthritis. There is marked lateral tilting of the talus. There is asy mmetric widening of the lateral tibiotalar joint. Osteophytes extend into the lateral tibiotalar join t space. There is bone upon bone involving the medial talus and tibial plafond. Adjacent subchondral cysts on the medial talus and the corresponding contact of the mid tibial plafond. Severe narrowing o f the medial tibiotalar joint. There is severe narrowing of the distal tibiofibular articulation. Marked osteophyte formation and na rrowing of the distal fibular and talar articular surface. Subtalar joint space is narrowed. There is a small osseous fragment which may be remote avulsion from the anterior calcaneal process. There is a large loose body or osteophyte in the anterior joint rece ss. There is soft tissue edema surrounding the ankle. Small joint effusion. IMPRESSION: 1. 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 Progression since CT. 2. Marked lateral tilting of the talus with asymmetric ankle mortise. 3. Small loose body and hypertrophic osteophytes and bone formation surrounding the ankle joint inclu ding medial and lateral malleolus. There is a large loose body in the anterior joint space. 4. Diffuse soft tissue edema surrounding the ankle and small joint effusion.
== END 2023-03-25 14:53 | disposition home or self-care (01) ==
LOC: RAD 14:52
PROVIDERS: PCP Family Medicine; Visit Provider Podiatrist Foot & Ankle Surgery
DX: M21.541 Acquired clubfoot, right foot (principal); M19.071 Primary osteoarthritis, right ankle and foot; M24.071 Loose body in right ankle; M25.771 Osteophyte, right ankle; M25.471 Effusion, right ankle
CPT/HCPCS: 73700

== ENCOUNTER → 2023-03-31 08:27 | Outpatient (BNVA) | payer OTHER, SELFPAY | PROVIDERS: PCP Family Medicine; Visit Provider Nurse Practitioner Family | DX: B35.2 Tinea manuum (principal); B35.3 Tinea pedis; L21.8 Other seborrheic dermatitis; B35.1 Tinea unguium; D86.9 Sarcoidosis, unspecified; L30.8 Other specified dermatitis | CPT/HCPCS: 99214 ==

== ENCOUNTER → 2023-04-01 08:25 | Outpatient (BNVA) | payer OTHER, SELFPAY | PROVIDERS: PCP Family Medicine; Visit Provider Podiatrist Foot & Ankle Surgery | DX: Z01.818 Encounter for other preprocedural examination (principal); M21.541 Acquired clubfoot, right foot; M25.371 Other instability, right ankle; M19.171 Post-traumatic osteoarthritis, right ankle and foot | CPT/HCPCS: 99214 ==

== ENCOUNTER 2023-04-02 07:02 | Day surgery (SDC) | payer OTHER, SELFPAY ==
[2023-04-02] VITALS (7 sets, daily range): BP systolic 129–178; BP diastolic 83–110; PULSE 67–81; RESP 15–24; TEMP 36.2–36.6; O2SAT 93–97; BMI 40.6
--- NOTE | 2023-04-02 | XR_ITS ---
WS: [id number] Right foot, C-arm fluoroscopy views, 04/02/2023 Clinical Data: Arthrodesis right foot, fibular take down and tibial(or pic) Comparison: Right ankle, 02/24/2023 Findings: Dr. Poe performed complex operative surgery of the right ankle with a lateral plate and multiple screws. Impression: Complex postoperative changes of the right ankle.
[2023-04-02] MEDS: sodium chloride 0.9% 1,000 ML 30 ML IV (07:34)
[2023-04-02] MEDS: CELEcoxib 200 mg Capsule 400 MG PO (07:35)
[2023-04-02] MEDS: gabapentin 300 mg Capsule PO (07:36)
--- NOTE | 2023-04-02 08:22 | ANES.PREANE2 ---
Pre-Anesthetic Assessment Height/Weight: Height 1.91 m Weight 147.418 kg Temp Pulse Resp BP Pulse Ox O2 Del Method 97.1 F L 81 16 137/91 94 Room Air 04/02/23 07:14 04/02/23 07:14 04/02/23 07:14 04/02/23 07:14 04/02/23 07:14 04/02/23 07:14 Preop Diagnosis: Posttraumatic arthritis right ankle. Right ankle instability. Operation Date: 04/02/23 09:05 Proposed Procedures p Ankle Arthrotomy(Right) - Timothy Poe DPM s Right ankle fusion and Right subtalar joint fusion, 31753, 51113, M21.541, M19.179, M25.371(Right) - Timothy Poe DPM Familial anesthetic complications: none Was Beta Jessica taken within 24 hours: N/A Was Clonidine taken within 24 hours: N/A Last intake: Intake Last Liquid Date 04/01/23 Last Liquid Time 23:50 Last Solid Date 04/01/23 Last Solid Time 20:00 Social No alcohol and No tobacco (h/o smoking) Exam alert, oriented x 3, clear to auscultation bilaterally and regular rate & rhythm Airway Submandibular: within normal limits Cervical ROM: within normal limits Mallampati: Class II Dentition: chipped Pulmonary Sarcoid CV/HEM Hypertension Metabolic Morbid Obesity Anesthetic Plan ASA status: 2 Anesthesia: General and Regional (specify below) (right pop blk) Medications/Allergies Home Medications Medication Instructions Recorded Confirmed Last Taken Type albuterol sulfate 90 mcg/actuation 2 puff inhalation Q6H PRN 01/11/21 04/01/23 02/11/22 History aerosol inhaler (ProAir HFA) Shortness Of Breath [place] AF #1 ea 03/12/21 04/01/23 Unknown Rx cetirizine 10 mg capsule (Zyrtec) 10 mg PO DAILY PRN Allergy Symptoms 03/12/21 04/01/23 12/09/21 History cyclobenzaprine 5 mg tablet 5 mg PO ONCE PRN Muscle Spasm 12/15/21 04/01/23 02/04/22 History hydroxychloroquine 200 mg tablet 200 mg PO BID #180 tabs 03/16/23 04/02/23 04/01/23 Rx Allergies Allergy/AdvReac Type Severity Reaction Status Date / Time azathioprine AdvReac Severe liver Verified 04/01/23 09:02 failure Current Medications Generic Name Dose Route Start Last Admin Trade Name Freq PRN Reason Stop Dose Admin Sodium Chloride 1,000 mls @ 30 mls/hr 04/02/23 07:15 04/02/23 07:34 Sodium Chloride 0.9% IV 04/03/23 07:14 30 mls/hr .Q24H CHRISTAL Administration PFSH Anesthesia Medical History Drug-induced liver injury Intra-abdominal lymphadenopathy Lymphadenopathy Sarcoidosis Uveitis in remission Surgical History S/P lymph node biopsy (01/30/21) Right inguinal S/P tonsillectomy Family History Mother Congestive heart failure Hypertension Father Diabetes Social History Smoking and tobacco/nicotine status: former use of tobacco/nicotine Alcohol intake: never Substance/Drug Use: former Date of last use: 1989 Household members: spouse Data Anesthesia Cardiac Studies: Echocardiogram Ultrasound 07/25/19
--- NOTE | 2023-04-02 08:35 | W.PM.OPSUD ---
Surgery/Procedure H&P Update DATE OF PROCEDURE: April 02, 2023 DATE H&P PERFORMED: 04/01/23 H&P UPDATE INFORMATION: I have reviewed H&P completed within last 30 days, I have examined patient prior to procedure, No changes to prior documentation and H&P is in [facility] [place] date indicated PREOP DIAGNOSIS: Posttraumatic arthritis right ankle. Right ankle instability. PLANNED PROCEDURE: Operation Date: 04/02/23 09:05 Proposed Procedures p Ankle Arthrotomy(Right) - Timothy Poe DPM s Right ankle fusion and Right subtalar joint fusion, 20884, 80622, M21.541, M19.179, M25.371(Right) - Timothy Poe DPM
--- NOTE | 2023-04-02 08:40 | PM.OP ---
Operative Report Date of procedure: April 02, 2023 Pre-op diagnosis: Right ankle instability. Right ankle arthritis. Right subtalar joint arthritis. Post-op diagnosis: Same Procedure done: Right ankle fusion. CPT code 34473 Right subtalar joint fusion. CPT code 00234 Implants: [employer] lateral tibial talocalcaneal silver back arthrodesis with locking plate [employer] 7 mm screw x2 [employer] 4.2 mm locking screws [employer] 4.5 mm locking and nonlocking screws [employer] V92 6 cc 2-0 Vicryl, 3-0 Vicryl, skin ana Surgeon: Timothy Poe DPM Roll Carrier: Joshua Estimated blood loss: 100 146 IV fluids: 0 Urine output: 0 Complications: None Brief History: Significant arthrosis of the tibiotalar joint appreciated. ? CT scan reviewed at today's visit.? Discussed risks versus benefits.? I reviewed at length with the patient, the risks, potential complications, benefits, alternatives, expectations, and typical outcomes associated with the surgery. The risks and potential complications were explained in detail, including but not limited to infection, wound dehiscence or soft tissue complications, bleeding and hematoma, chronic edema, neuritis or nerve damage producing numbness or chronic pain, CRPS, failure to relieve pain or worsening pain, thick / painful / unsightly scar, limited motion / stiffness, malposition, delayed union, malunion, or nonunion, fracture, reaction to implants, anesthetic complications, venous thromboembolism, and deformity recurrence.? I discussed the notion of no regrets with the patient as it pertains to complications and outcomes. The patient seemed to understand the nature of the proposed care and required convalescence. They asked appropriate questions, answered to their satisfaction. They are aware no guarantees can be made as to a satisfactory outcome and they understand there may be other possible unforeseen complications or outcomes not listed here that will be treated accordingly if they arise. There were no written or implied guarantees given to the patient. They gave informed consent to proceed. Procedure: Under mild sedation the patient was brought to the operating room and placed onto the operating table in supine position. A timeout was performed. Anesthesia was then administered by the anesthesia service. Popliteal block per anesthesia service also performed to the right lower extremity. Additional 5 cc of 0.5 sent Marcaine plain performed by myself at the right ankle for saphenous nerve block medially. Well-padded pneumatic tourniquet was applied to the right high calf. The right lower extremity was scrubbed, prepped and draped utilizing normal aseptic technique. Right lower extremity was exanguinated with an Esmarch bandage and tourniquet inflated to 250 mmHg. Attention was directed to the right ankle where a varus deformity was appreciated with gross instability appreciated intraoperatively. Incision for right ankle and subtalar joint arthrodesis was carried out with a lateral approach with an incision made through skin with a #15 blade directly over the lateral malleolus with dissection carried down through subcutaneous tissue to the layer of periosteum utilizing a combination of sharp and blunt technique. Care was taken to retract and preserve neurovascular and tendinous structures. All bleeders were ligated and cauterized as necessary. A fibular osteotomy was performed beveled from proximal lateral to distal medial with a sagittal saw and the fibula was sharply excised and passed from operative field. The ankle joint was then distracted as well as subtalar joint and were noted to have significant cartilage loss with eburnation and instability favoring varus deformity. The ankle joint and subtalar joint of the right lower extremity were prepared for arthrodesis utilizing curettage, bone resurfacing total to minimize thermal injury, osteotome and rongeur followed by additional fish scaling and subchondral drilling with 2 mm fenestratingDrill bit both at the distal tibial surface, dorsal talar surface, inferior talar surface and superior calcaneal surface. After joint preparation all bony voids were packed with 6 cc of V92. Ankle was held in slight valgus, neutral dorsiflexion and slight external rotation. Subtalar joint also held in slight valgus. Lateral locking plate provided by [employer] this was a silver back TTC plate with excellent bony apposition and compression noted was fixated starting within the talar body with 4.2 mm locking screws with excellent bony apposition and compression, AP, oblique and lateral views of the right ankle confirm that the placement of hardware was excellent in all 3 planes. Next the compression slot with eccentric hole drilling with a 4.5 millimeter screw at the more superior aspect within the tibia was performed followed by homerun screws of 7 mm screw from subtalar joint oriented from posterior inferior to superior anterior and within the tibiotalar joint from superior posterior to inferior anterior within the talar body with excellent bony apposition and compression noted. 4.5 mm locking screws were then utilized within the remaining holes of the calcaneal portion of the TTC arthrodesis locking plate as well as at the tibia. Excellent contour, alignment and placement of hardware appreciated in all 3 planes utilizing direct visualization of the limb as well as with intraoperative fluoroscopy in the AP, oblique and lateral views noted to be excellent. The incision was irrigated with copious amounts of sterile skin solution and closed in a layered fashion. 2-0 Vicryl for deep fascia and periosteum. 3-0 Vicryl for subcutaneous tissue and skin ana. The incision was dressed with nonadherent gauze Xeroform, sterile 4 x 4's, Kerlix and a well-padded multilayer compressive posterior splint was applied to the right lower extremity. The tourniquet was deflated and a prompt hyperemic response was noted to the distal digits of the right foot. Patient tolerated the procedure and anesthesia well and was transferred to the PACU with vital signs stable and vascular status intact. Following a period of postoperative monitoring he will be discharged home, was given at home care instructions, scheduled follow-up and my cell phone number to contact with any postoperative questions or concerns. Was advised to begin taking a baby aspirin 81 mg aspirin once daily starting the morning after surgery 04/03/2023.
[2023-04-02] MEDS: ceFAZolin 3,000 MG in sodium chloride 0.9% (100 ml) 100 ML 200 MG IV (08:52)
[2023-04-02] MEDS: BUPivacaine 0.5% INJ 10 mL 5 ML INJECTION (09:10)
--- NOTE | 2023-04-02 09:54 | ANES.PROC ---
Anesthesia Procedures Procedure/Date: 04/02/23 Nerve Block ^: Nerve Block 1: Main Anesthesia: general anesthesia Time Out Performed: Yes Consent: requested by attending/covering physician, from patient, risks and benefits reviewed and patient agrees to proceed Nerve block location: popliteal (right) Anesthesia monitors applied: pulse oximetry, EKG, BP cuff and oxygen Nerve block position: supine Anesthetic Used: ropivicaine 0.5% Amount of anesthesia used (mL): 30 Ultrasound used to: recognize landmarks Nerve Stimulator Used?: Yes Interscalene/Femoral BLK: 4 stimuplex 21 g needle used for position and inplane approach Injection: neg aspiration of heme Patient Tolerated Procedure: well Complications: none
--- NOTE | 2023-04-02 12:15 | SUR.OPER ---
While doing final count with [facility], count was noted to be incorrect. One raytech was not accounted for. Dr. Poe was present and an x-ray of the right foot was obtained, no raytech was noted in surgical site, and was confirmed by Dr. Poe. X-ray picture was placed in patient's chart.
--- NOTE | 2023-04-02 12:30 | W.PM.BPON ---
Date of Procedure: 04/02/23 Surgeon: Timothy Poe DPM Computer Hardware Engineer(s): Irma Alejo Procedure(s) performed: Right ankle joint fusion. Right subtalar joint fusion. Findings of the procedure(s): Arthritis of right subtalar joint and ankle. Estimated blood loss: 100 mL Specimen(s) removed: None Post-operative diagnosis: Ankle varus, right. Right ankle instability. Arthritis right ankle. Arthritis right subtalar joint.
[2023-04-02] MEDS: HYDROcodone-acetaminophen 10-325 mg Tablet 1 TAB PO (12:57)
--- NOTE | 2023-04-02 13:55 | ANE.PACU2 ---
Inpatient post-anesthesia follow up: Airway intact: Yes Vital signs: Temperature 98 F Pulse Rate 67 Respiratory Rate 16 Blood Pressure 178/110 Pulse Oximetry 94 Oxygen Delivery Me thod Room Air Oxygen Flow Rate 6 Fraction of Inspir ed Oxygen Hydration adequate: Yes Nausea and vomiting: No Pain level: 2 Mental status: Baseline Additional Comments: throbbing pain
== END 2023-04-02 14:00 | disposition home or self-care (01) ==
PROVIDERS: PCP Family Medicine; Visit Provider Podiatrist Foot & Ankle Surgery
PROC: (CPT 28740; 2023-04-02 08:10)
DX: M25.371 Other instability, right ankle (principal); M19.071 Primary osteoarthritis, right ankle and foot; I10 Essential (primary) hypertension; E66.01 Morbid (severe) obesity due to excess calories; Z68.41 Body mass index [BMI] 40.0-44.9, adult; Z87.891 Personal history of nicotine dependence
CPT/HCPCS: 27870; 28725; 51702; 73620; 76000; C1713 ×2; C1762; J0690; J1100; J2405; J2704; J2795; J3010; J3490; J7030

== ENCOUNTER → 2023-04-08 15:04 | Outpatient (BNVA) | payer OTHER, SELFPAY | PROVIDERS: PCP Family Medicine; Visit Provider Podiatrist Foot & Ankle Surgery | DX: Z98.890 Other specified postprocedural states (principal) | CPT/HCPCS: 99024 ==

== ENCOUNTER → 2023-04-15 14:29 | Outpatient (BNVA) | payer OTHER, SELFPAY | PROVIDERS: PCP Family Medicine; Visit Provider Podiatrist Foot & Ankle Surgery | DX: Z98.890 Other specified postprocedural states (principal) | CPT/HCPCS: 73610; 99024 ==

== ENCOUNTER → 2023-04-21 06:46 | Outpatient (BNVA) | payer OTHER, SELFPAY | PROVIDERS: PCP Family Medicine; Visit Provider Podiatrist Foot & Ankle Surgery | DX: Z98.890 Other specified postprocedural states (principal) | CPT/HCPCS: 99024 ==

== ENCOUNTER → 2023-04-28 09:42 | Outpatient (BNVA) | payer OTHER, SELFPAY | PROVIDERS: PCP Family Medicine; Visit Provider Podiatrist Foot & Ankle Surgery | DX: Z98.890 Other specified postprocedural states (principal); T81.31XA Disruption of external operation (surgical) wound, not elsewhere classified, initial encounter; Y83.8 Other surgical procedures as the cause of abnormal reaction of the patient, or of later complication, without mention of misadventure at the time of the procedure | CPT/HCPCS: 73610 ==

== ENCOUNTER 2023-04-28 11:12 | Outpatient (CLI) | payer OTHER, SELFPAY | END 2023-04-28 11:13 | disposition home or self-care (01) | LOC: SPT 11:13 | PROVIDERS: PCP Family Medicine; Visit Provider Podiatrist Foot & Ankle Surgery | DX: Z47.89 Encounter for other orthopedic aftercare (principal); Z98.890 Other specified postprocedural states | CPT/HCPCS: 97760; 99024; L4361 ==

== ENCOUNTER → 2023-05-11 14:00 | Outpatient (BNVA) | payer OTHER, SELFPAY | PROVIDERS: PCP Family Medicine; Visit Provider Podiatrist Foot & Ankle Surgery | DX: T81.31XA Disruption of external operation (surgical) wound, not elsewhere classified, initial encounter (principal); Z98.890 Other specified postprocedural states; Y83.8 Other surgical procedures as the cause of abnormal reaction of the patient, or of later complication, without mention of misadventure at the time of the procedure | CPT/HCPCS: 73610; 99024 ==

== ENCOUNTER → 2023-05-26 10:03 | Outpatient (BNVA) | payer OTHER, SELFPAY | PROVIDERS: PCP Family Medicine; Visit Provider Internal Medicine Rheumatology | DX: Z79.899 Other long term (current) drug therapy (principal); D86.9 Sarcoidosis, unspecified; H20.9 Unspecified iridocyclitis; Z71.89 Other specified counseling; R59.0 Localized enlarged lymph nodes; R21 Rash and other nonspecific skin eruption | CPT/HCPCS: 36415; 80076; 82565; 85025; 86140; 99214 ==

== ENCOUNTER 2023-05-29 19:50 | Emergency (ER) | payer OTHER, SELFPAY ==
[2023-05-29 20:08] VITALS: BP 162/97; PULSE 81; RESP 16; TEMP 36.9; O2SAT 92; BMI 39.9
--- NOTE | 2023-05-29 20:31 | ED_ITS ---
HPI - Male Genitourinary 2 General: Chief complaint: Urogenital-Male Stated complaint: pink urine body aches Time Seen by Provider: 05/29/23 20:01 History of Present Illness: 47-year-old male presents emergency depa rtment with complaints of bilateral flank pain that started yesterday. He states that he received an MRI yesterday and after the MRI he felt like he was having difficulty and low back pain. He states the also noted that when he urinated today that he noticed the water in the toilet had a pink tinge and he became concerned. He states he has generalized muscle aches as well he states this occurred after receiving his MRI yesterday. He states his bilateral low back pain currently is a 3 out of 10. He states he did have a right ankle fusion secondary to a long time injury. Associated symptoms: Reports hematuria Review of Systems 2 General: Reports: 10 or more systems reviewed and unremarkable except in HPI and below : Reports: flank pain, urinary frequency, urinary urgency and hematuria PFSH ED 2 PFSH: Medical History (Updated 05/29/23 @ 22:08 by Conrad Armendariz MD) Skin rash Intra-abdominal lymphadenopathy Lymphadenopathy Drug-induced liver injury Uveitis in remission Sarcoidosis Surgical History (Updated 05/26/23 @ 11:54 by Timothy Poe DPM) H/O ankle fusion rt 04/02/2023 S/P lymph node biopsy (01/30/21) Right inguinal S/P tonsillectomy Family History Mother Congestive heart failure Hypertension Father Diabetes Social History Smoking and tobacco/nicotine status: former use of tobacco/nicotine Alcohol intake: never Substance/Drug Use: former Date of last use: 1989 Household members: spouse Physical Exam 2 Narrative: EXAM NARRATIVE: Constitutional: the patient appears well nourished and with normal development. Vital signs reviewed as documented. HENMT: Normocephalic, atraumatic. Extermal ears with normal appearance without drainage. Nose without drainage, normal appearance. Mucus membranes moist. Neck is supple, No jugular venous distension, trachea is midline, no appreciable carotid bruits. No lymphadenopathy. No meningeal signs. Flexion, extension and lateral rotation is without pain. Eyes: Pupils are equal, round, reactive to light and accommodation. No scleral icterus. Extra-ocular movement are intact. Thorax is symmetrical and with equal rise and fall with respirations. Resp: Lungs are clear to auscultation. No wheezes, rales, crackles or ronchi at present. Cardio: Regular rate and rhythm. Positive S1, S2. No appreciable murmurs, rubs or gallops. GI: Abdominal exam reveals normal bowel sounds to all quadrants. No organomegaly. No obvious palpable masses noted. No hepatomegally appreciated. Soft, nontender to palpation. Extremity: Extremities are non-edematous and both femoral and pedal pulses are 2+ and equal bilaterally. Moves all extremities well, sensation in all extremities. Neuro: Alert and oriented x4, person, place, time and situation. Cranial nerves II through XII are grossly intact, there is no focal neurological deficits that I can appreciate at present. Motor strength in the upper and lower extremities are equal and bilateral 5/5. Psych: Cooperative, calm, normal thought process, appropriate judgment. Skin: No lesions, rashes. No gross abnormalities noted. Back: Symmetrical, no obvious deformity, No CVA tenderness Course 2 Vital Signs: Vital signs: Vital Signs Temperature 98.5 F 05/29/23 20:08 Pulse Rate 81 05/29/23 20:08 Respiratory Rate 16 05/29/23 20:08 Blood Pressure 162/97 05/29/23 20:08 Pulse Oximetry 92 05/29/23 20:08 Oxygen Delivery Me thod Room Air 05/29/23 20:08 MDM - Male Medical Decision Making Physical exam completed and documented, I will obtain a CBC, CMP CPK give IV fluid and a urinalysis to evaluate this patient's concerns. Differential diagnosis includes contrast nephropathy, kidney stone, dehydration, rhabdomyolysis. Medical Records I reviewed the patient's medical records. Lab Data I reviewed the patient's lab results. 05/29/23 20:30 05/29/23 20:30 Laboratory Results WBC 7.04 10^3/uL (3.29-11.43) 05/29/23 20:30 RBC 4.71 10^6/uL (3.85-5.65) 05/29/23 20:30 Hgb 14.70 g/dL (11.27-16.99) 05/29/23 20:30 Hct 43.6 % (37-53) 05/29/23 20:30 MCV 92.6 fl (82-101) 05/29/23 20: MCH 31.2 pg (27-33) 05/29/23 20: MCHC 33.7 g/dL (30-55) 05/29/23 20:30 RDW 12.8 % (12.1-15.1) 05/29/23 20:30 Plt Count 282 10^3/cmm (157-399) 05/29/23 20:30 MPV 9.4 fL (7.4-10.4) 05/29/23 20:30 Neut % (Auto) 67.6 % 05/29/23 20: Lymph % (Auto) 17.0 % 05/29/23 20: [place] % (Auto) 10.1 % 05/29/23 20:30 Eos % (Auto) 4.3 % 05/29/23 20: Baso % (Auto) 0.7 % 05/29/23 20: Neut # (Auto) 4.76 10^3/uL (1.8-7.7) 05/29/23 20:30 Lymph # (Auto) 1.2 10^3/uL (0.8-4.8) 05/29/23 20:30 [place] # (Auto) 0.7 10^3/uL (0.2-0.9) 05/29/23 20:30 Eos # (Auto) 0.3 10^3/uL (0.0-0.8) 05/29/23 20: Baso # (Auto) 0.1 10^3/uL (0.0-0.1) 05/29/23 20:30 Nucleated RBC % (auto) 0 % 05/29/23 20: Nucleated RBCs # 0.0 /100WBC 05/29/23 20:30 Sodium 140 mmol/L (136-145) 05/29/23 20:30 Potassium 3.9 mmol/L (3.5-5.1) 05/29/23 20:30 Chloride 102 mmol/L (98-107) 05/29/23 20:30 Carbon Dioxide 25 mmol/L (22-29) 05/29/23 20:30 Anion Gap 16.9 (5-19) 05/29/23 20:30 BUN 15 mg/dL (6-20) 05/29/23 20:30 Creatinine 1.2 mg/dL (0.7-1.2) 05/29/23 20:30 GFR Calculation 64.4 mL/min (90-130) L 05/29/23 20:30 Glucose 130 mg/dL (65-115) H 05/29/23 20:30 Calculated Osmolality 293 mOsm/kg (285-295) 05/29/23 20:30 Calcium 10.1 mg/dL (8.5-10.5) 05/29/23 20:30 Total Bilirubin 0.4 mg/dL (0.15-1.2) 05/29/23 20:30 AST 24 U/L (0-40) 05/29/23 20: ALT 36 U/L (0-41) 05/29/23 20:30 Alkaline Phosphatase 125 U/L (40-130) 05/29/23 20:30 Creatine Kinase 37 U/L (39-308) L 05/29/23 20:30 Total Protein 7.0 g/dL (6.6-8.7) 05/29/23 20:30 Albumin 4.1 g/dL (3.5-5.2) 05/29/23 20:30 Globulin 2.9 g/dL (1.3-4.6) 05/29/23 20:30 Urine Color Red (Yellow) A 05/29/23 21: Urine Appearance Cloudy (CLEAR) A 05/29/23 21: Urine pH 6 (5-7) 05/29/23 21: Ur Specific [place] 1.025 (1.005-1.030) 05/29/23 21: Urine Protein 2+ (Negative) H 05/29/23 21: Urine Glucose (UA) Norm (Normal) 05/29/23 21: Urine Ketones Negative (Negative) 05/29/23 21: Urine Blood 3+ (Negative) H 05/29/23 21: Urine Nitrate Negative (Negative) 05/29/23 21: Urine Bilirubin Neg (Negative) 05/29/23 21: Urine Urobilinogen Neg mg/dL (Negative) 05/29/23 21: Ur Leukocyte Esterase Negative (Negative) 05/29/23 21:28 Urine RBC Too numerous to cnt /hpf (0-2) H 05/29/23 21:28 Urine WBC 0-4 /hpf (0-5) H 05/29/23 21:28 Ur Squamous Epith Cells 0-4 /hpf (0-5) H 05/29/23 21:28 Amorphous Sediment Not Reportable 05/29/23 21:28 Urine Bacteria None /hpf (NONE) 05/29/23 21:28 No radiology studies performed this visit Discharge Plan Discharge Patient Disposition: Home Clinical Impression: Hematuria Qualifiers: Hematuria type: gross Qualified Code(s): R31.0 - Gross hematuria Condition: Stable Prescriptions: No Action Zyrtec 10 mg capsule 10 mg PO DAILY PRN (Reason: Allergy Symptoms) cyclobenzaprine 10 mg tablet 10 mg PO TID PRN (Reason: muscle spasm) 7 Days Qty: 30 0RF hydrocodone-acetaminophen 7.5-325 mg tablet 1 tab PO Q8H PRN (Reason: pain) 7 Days Qty: 21 0RF cyclobenzaprine 5 mg tablet 5 mg PO ONCE PRN (Reason: Muscle Spasm) hydroxychloroquine 200 mg tablet 200 mg PO BID Qty: 180 1RF clobetasol 0.05 % cream 1 applic topical BID 14 Days Qty: 45 2RF hydrocodone-acetaminophen 10-325 mg tablet 1 tab PO Q6H PRN (Reason: pain) 7 Days Qty: 28 0RF hydrocodone-acetaminophen 7.5-325 mg tablet 1 tab PO Q6H PRN (Reason: pain) 7 Days Qty: 28 0RF (DME) Cam boot to right See Rx Instructions .Route .MEDSUPPLY Qty: 1 0RF Rx Instructions: As directed hydrocodone-acetaminophen 7.5-325 mg tablet 1 tab PO Q6H PRN (Reason: pain) 7 Days Qty: 28 0RF hydrocodone-acetaminophen 5-325 mg tablet 1 tab PO Q6H PRN (Reason: pain) 7 Days Qty: 28 0RF albuterol sulfate [ProAir HFA] 90 mcg/actuation Hfa Aerosol Inhaler 2 puff INHALATION Q6H PRN (Reason: Shortness Of Breath) Discharge Orders: Discharge ED (Routine); Ordered 05/29/23 Ordered By: Conrad Armendariz Referrals: Ailyn Hollingsworth MD [Primary Care Provider] - Discharge Diet: Advance as tolerated Discharge Activity: Resume usual activity Patient Instructions: Opioid Safety, Pain Management Activity Restrictions/Additional Instructions: Activity Restrictions/Additional Instructions: Thank you for choosing [facility] for your healthcare needs today. Please realize that you were seen in the Emergency Department and that we are providing you with an emergency medical screening exam and this may not be a complete and all inclusive of all the testing and or medical work-up that you may need to determine your ailment or severity of your illness. It is very important that you follow-up as instructed with your Primary care provider or Specialist for additional evaluation and to discuss your medical treatment plan. You may return to the Emergency Department should you have concerns or if your condition changes or worsens in any way. Coding Level of Care Code ED Otolaryngology Rep for Eliel Scruggs
[2023-05-29] MEDS: sodium chloride 0.9% 1,000 ML 999 ML IV ×2 (20:39→22:11)
[2023-05-29 20:41] LABS: Basophils # 0.1 10^3/uL (0.0-0.1); Basophils % 0.7 %; Eosinophils # 0.3 10^3/uL (0.0-0.8); Eosinophils % 4.3 %; Hematocrit 43.6 % (37-53); Lymphocytes # 1.2 10^3/uL (0.8-4.8); Mean Corpuscular HGB Conc 33.7 g/dL (30-55); Mean Corpuscular Hemoglobin 31.2 pg (27-33); Mean Corpuscular Volume 92.6 fl (82-101); Mean Platelet Volume 9.4 fL (7.4-10.4); Monocytes # 0.7 10^3/uL (0.2-0.9); Monocytes % 10.1 %; Neutrophils # 4.76 10^3/uL (1.8-7.7); Neutrophils % 67.6 %; Nucleated Red Blood Cells % 0 %; Platelet Count 282 10^3/cmm (157-399); Red Blood Count 4.71 10^6/uL (3.85-5.65); Red Cell Distribution Width 12.8 % (12.1-15.1); White Blood Count 7.04 10^3/uL (3.29-11.43)
[2023-05-29 21:06] LABS: Alanine Aminotransferase 36 U/L (0-41); Albumin Level 4.1 g/dL (3.5-5.2); Alkaline Phosphatase 125 U/L (40-130); Anion Gap 16.9 (5-19); Aspartate Amino Transferase 24 U/L (0-40); Blood Urea Nitrogen 15 mg/dL (6-20); Calcium 10.1 mg/dL (8.5-10.5); Carbon Dioxide 25 mmol/L (22-29); Chloride 102 mmol/L (98-107); Creatine Phosphokinase 37 U/L (39-308); Globulin 2.9 g/dL (1.3-4.6); Glomerular Filtration Rate 64.4 mL/min (90-130); Glucose 130 mg/dL (65-115); Osmolality Calculated 293 mOsm/kg (285-295); Potassium 3.9 mmol/L (3.5-5.1); Sodium 140 mmol/L (136-145); Total Bilirubin 0.4 mg/dL (0.15-1.2)
[2023-05-29 21:43] LABS: Urine Appearance Cloudy (CLEAR); Urine Color Red (Yellow)
[2023-05-29 21:44] LABS: Bilirubin Urine Neg (Negative); Blood Urine 3+ (Negative); Glucose Urine UA Norm (Normal); Ketones Urine Negative (Negative); Leukocyte Esterase Urine Negative (Negative); Nitrate Urine Negative (Negative); Protein Urine 2+ (Negative); Specific Gravity, Urine 1.025 (1.005-1.030); Urobilinogen Urine Neg (Negative); pH Urine 6 (5-7)
[2023-05-29 21:56] LABS: Add Urine Culture? Yes; RBC Urine TOO NUMEROUS TO CNT /hpf (0-2); Squamous Epithelial Cell Urine 0-4 /hpf (0-5); WBC Urine 0-4 /hpf (0-5)
[2023-05-29 23:11] VITALS: BP 138/78; PULSE 88; RESP 18; O2SAT 98
== END 2023-05-29 23:12 | disposition home or self-care (01) ==
PROVIDERS: Emergency Provider Internal Medicine; PCP Family Medicine
DX: R31.0 Gross hematuria (principal); Z87.891 Personal history of nicotine dependence
CPT/HCPCS: 36415; 80053; 81001; 82550; 85025; 87077; 87086; 96360; 96361; 99284; J7030

== ENCOUNTER → 2023-06-03 14:28 | Outpatient (BNVA) | payer OTHER, SELFPAY | PROVIDERS: PCP Family Medicine; Visit Provider Podiatrist Foot & Ankle Surgery | DX: Z98.890 Other specified postprocedural states (principal) | CPT/HCPCS: 73610; 99024 ==

== ENCOUNTER → 2023-06-10 08:16 | Outpatient (BNVA) | payer OTHER, SELFPAY | PROVIDERS: PCP Family Medicine; Visit Provider Nurse Practitioner Family | DX: L30.9 Dermatitis, unspecified (principal); L30.8 Other specified dermatitis; D86.9 Sarcoidosis, unspecified; R60.0 Localized edema; L57.8 Other skin changes due to chronic exposure to nonionizing radiation; L81.4 Other melanin hyperpigmentation; D22.4 Melanocytic nevi of scalp and neck | CPT/HCPCS: 11104; 99214 ==

== ENCOUNTER → 2023-06-22 08:22 | Outpatient (BNVA) | payer OTHER, SELFPAY | PROVIDERS: PCP Family Medicine; Visit Provider Nurse Practitioner Family | DX: L92.1 Necrobiosis lipoidica, not elsewhere classified (principal); L30.8 Other specified dermatitis; D86.9 Sarcoidosis, unspecified; R60.0 Localized edema; L57.8 Other skin changes due to chronic exposure to nonionizing radiation; L81.4 Other melanin hyperpigmentation; D22.4 Melanocytic nevi of scalp and neck | CPT/HCPCS: 99214 ==

== ENCOUNTER → 2023-07-01 15:57 | Outpatient (BNVA) | payer OTHER, SELFPAY | PROVIDERS: PCP Family Medicine; Visit Provider Podiatrist Foot & Ankle Surgery | DX: Z98.890 Other specified postprocedural states | CPT/HCPCS: 73610; 99024 ==

== ENCOUNTER → 2023-07-07 08:44 | Outpatient (BNVA) | payer OTHER, SELFPAY | PROVIDERS: PCP Family Medicine; Visit Provider Specialist | DX: M19.011 Primary osteoarthritis, right shoulder; M75.81 Other shoulder lesions, right shoulder; S42.111 Displaced fracture of body of scapula, right shoulder; X58.XXXS Exposure to other specified factors, sequela | CPT/HCPCS: 73030; 99205 ==

== ENCOUNTER → 2023-07-23 11:16 | Outpatient (BNVA) | payer OTHER, SELFPAY | PROVIDERS: PCP Family Medicine; Referring Provider Family Medicine; Visit Provider Internal Medicine Pulmonary Disease | DX: R07.9 Chest pain, unspecified (principal); J30.2 Other seasonal allergic rhinitis; R06.02 Shortness of breath; D86.9 Sarcoidosis, unspecified; J84.9 Interstitial pulmonary disease, unspecified; Z87.891 Personal history of nicotine dependence | CPT/HCPCS: 36415; 82785; 86003; 93005; 99204 ==

== ENCOUNTER 2023-07-26 14:26 | Outpatient (CLI) | payer OTHER, SELFPAY ==
--- NOTE | 2023-07-26 14:30 | CT_ITS ---
WS: [id number] CT RIGHT SHOULDER, NONCONTRAST. HISTORY: RIGHT SHOULDER PAIN/SCAPULA Technique: All CT scans at [facility] use at least one of these dose optimization techniques: automated exposure control; mA and/or kV adjustment per patient size (includes targeted exams where dose is matched to clinical indication); or iterative reconstruction. DLP: 790.29 mGy.cm COMPARISON: Shoulder radiograph 07/07/2023 No acute fracture or dislocation. In the scapular spine there is increased sclerosis but no bone dest ruction in the lytic change. This may be normal for this patient. No signal abnormality was noted on doing the MRI of 05/28/2023 in this location. Normal position of the humeral head and the glenoid. The re is a small osseous density measuring 5 mm posterior to the humeral head. Mild narrowing of the AC joint. Small osteophyte encroaching upon the supraspinatus muscle. No muscle atrophy. Interstitial thickening and multiple nodules are reidentified in the RIGHT upper lobe. These nodules were described on 11/24/2022. Within the portion of the lung visualized no significant progression of t hese nodules. Small mediastinal and hilar lymph nodes. IMPRESSION: 1. No scapular mass or bone destruction. 2. Mild increase in the cortical thickening and sclerosis involving the scapular spine. No signal abn ormality was noted in this location on the MRI from 05/28/2023. This may be a normal appearance of the scapular spine for this patient. The changes do appear more pronounced than on a prior chest CT of . Patient may benefit from the bone scan imaging. 3. AC joint arthritis with an osteophyte encroaching upon the supraspinatus muscle. 4. Reticular nodular interstitial lung disease noted in the upper RIGHT upper lobe. This has been pre viously described.
== END 2023-07-26 14:27 | disposition home or self-care (01) ==
LOC: RAD 14:27
PROVIDERS: PCP Family Medicine; Visit Provider Specialist
DX: M19.011 Primary osteoarthritis, right shoulder (principal); M89.8X1 Other specified disorders of bone, shoulder; J84.9 Interstitial pulmonary disease, unspecified
CPT/HCPCS: 73200

== ENCOUNTER → 2023-08-02 14:47 | Outpatient (BNVA) | payer OTHER, SELFPAY | PROVIDERS: PCP Family Medicine; Visit Provider Podiatrist Foot & Ankle Surgery | DX: Z98.890 Other specified postprocedural states (principal); Z98.1 Arthrodesis status | CPT/HCPCS: 73610; 99213 ==

== ENCOUNTER 2023-08-11 11:10 | Outpatient (CLI) | payer OTHER, SELFPAY ==
[2023-08-11 11:25] VITALS: PULSE 86; RESP 18; O2SAT 98
[2023-08-11] MEDS: albuterol 2.5 mg/3 mL Neb INHALATION (11:25)
== END 2023-08-11 11:11 | disposition home or self-care (01) ==
LOC: RT 11:11
PROVIDERS: PCP Family Medicine; Visit Provider Internal Medicine Pulmonary Disease
DX: R06.02 Shortness of breath (principal)
CPT/HCPCS: 36415; 82785; 86003; 94060; 94726; 94729; 99204; J7613

== ENCOUNTER → 2023-08-16 14:48 | Outpatient (BNVA) | payer OTHER, SELFPAY | PROVIDERS: PCP Family Medicine; Visit Provider Podiatrist Foot & Ankle Surgery | DX: Z98.1 Arthrodesis status (principal); Z98.890 Other specified postprocedural states; L60.0 Ingrowing nail | CPT/HCPCS: 11730; 73610 ==

== ENCOUNTER → 2023-08-24 13:38 | Outpatient (BNVA) | payer OTHER, SELFPAY | PROVIDERS: PCP Family Medicine; Visit Provider Internal Medicine Pulmonary Disease | DX: D86.9 Sarcoidosis, unspecified (principal); J84.9 Interstitial pulmonary disease, unspecified; Z87.891 Personal history of nicotine dependence | CPT/HCPCS: 99214 ==

== ENCOUNTER → 2023-08-25 09:23 | Outpatient (BNVA) | payer OTHER, SELFPAY | PROVIDERS: PCP Family Medicine; Visit Provider Internal Medicine Rheumatology | DX: Z79.899 Other long term (current) drug therapy (principal); D86.9 Sarcoidosis, unspecified; H20.9 Unspecified iridocyclitis; Z71.89 Other specified counseling; R59.0 Localized enlarged lymph nodes; R21 Rash and other nonspecific skin eruption | CPT/HCPCS: 36415; 80076; 82565; 85025; 86140; 99215 ==

== ENCOUNTER 2023-09-14 07:55 | Outpatient (CLI) | payer OTHER, SELFPAY ==
--- NOTE | 2023-09-14 09:00 | CT_ITS ---
WS: [id number] CT CHEST AND ABDOMEN WITHOUT CONTRAST HISTORY: D86.9 - Sarcoidosis, unspecified TECHNIQUE: Axial imaging is performed through the chest and abdomen without contrast. Sagittal and co lory reformats. All CT scans at [facility] use at least one of these dose optimization techn iques: automated exposure control; mA and/or kV adjustment per patient size (includes targeted exams where dose is matched to clinical indication); or iterative reconstruction. CONTRAST: None DLP: 1269.27 mGy COMPARISON: Chest CT 11/24/[address]: Lungs are well expanded. Reidentified are bilateral upper lobe nodules and reticulations. These were also present on 11/24/2022 but the number of nodules and reticulations and interstitial thickening and pleural nodules have increased although remaining less than a centimeter. Less nodularity in the lowe r lobes. Mediastinal and hilar lymphadenopathy is very similar to the prior examination on this unenh anced exam. The nodules are increased in number and some of the lymph nodes are increased in size but stable. No pericardial or pleural effusions. Abdomen CT: Liver and spleen are negative on this unenhanced exam. Spleen is measuring top size at 13.4 cm. Nina lithiasis. Increased density within the gallbladder and stones identified. No adjacent inflammation. Normal pancreas. No adrenal mass. No renal obstruction. Nonobstructing 3 mm calcification lower pole RIGHT kidney. Reidentified are numerous lymph nodes in the upper abdomen surrounding the distal esophagus and throu gh the lesser curvature of the stomach to the celiac axis. These lymph nodes are very similar in appe arance to 09/15/2021. No new lymph nodes or increasing number or size. No ascites. Mild thoracic spondylosis. IMPRESSION: 1. Reidentified are bilateral upper lobe nodules, reticulations and opacifications which are stable. 2. Reidentified is mediastinal, hilar and upper abdomen adenopathy which is stable and seen on multi ple prior examinations. No progression. 3. Cholelithiasis without acute cholecystitis. 4. No focal pneumonia or dense consolidation. 5. Spleen is top size measuring 13.4 cm. Similar to the prior study of 11/16/2021.
== END 2023-09-14 07:56 | disposition home or self-care (01) ==
LOC: RAD 07:55
PROVIDERS: PCP Family Medicine; Visit Provider Internal Medicine Rheumatology
DX: D86.9 Sarcoidosis, unspecified (principal); R91.8 Other nonspecific abnormal finding of lung field; K80.20 Calculus of gallbladder without cholecystitis without obstruction
CPT/HCPCS: 71250; 74150

== ENCOUNTER → 2023-09-16 13:47 | Outpatient (BNVA) | payer OTHER, SELFPAY | PROVIDERS: PCP Family Medicine; Visit Provider Podiatrist Foot & Ankle Surgery | DX: Z98.890 Other specified postprocedural states (principal); Z98.1 Arthrodesis status | CPT/HCPCS: 73610; 99213 ==

== ENCOUNTER → 2023-10-11 12:12 | Outpatient (BNVA) | payer OTHER, SELFPAY | PROVIDERS: PCP Family Medicine; Visit Provider Internal Medicine Cardiovascular Disease | DX: R00.2 Palpitations (principal); R03.0 Elevated blood-pressure reading, without diagnosis of hypertension; Z87.891 Personal history of nicotine dependence | CPT/HCPCS: 99213 ==

== ENCOUNTER → 2023-11-11 09:47 | Outpatient (BNVA) | payer OTHER, SELFPAY | PROVIDERS: PCP Family Medicine; Visit Provider Podiatrist Foot & Ankle Surgery | DX: Z98.1 Arthrodesis status (principal) | CPT/HCPCS: 73610; 99213 ==

== ENCOUNTER → 2023-11-29 15:11 | Outpatient (BNVA) | payer OTHER, SELFPAY | PROVIDERS: PCP Family Medicine; Visit Provider Podiatrist Foot & Ankle Surgery | DX: S91.341A Puncture wound with foreign body, right foot, initial encounter (principal); X58.XXXA Exposure to other specified factors, initial encounter | CPT/HCPCS: 10120 ==

== ENCOUNTER → 2024-01-10 07:51 | Outpatient (BNVA) | payer OTHER, SELFPAY | PROVIDERS: PCP Family Medicine; Visit Provider Podiatrist Foot & Ankle Surgery | DX: Z98.1 Arthrodesis status (principal) | CPT/HCPCS: 99213 ==

== ENCOUNTER → 2024-01-27 10:46 | Outpatient (BNVA) | payer OTHER, SELFPAY | PROVIDERS: PCP Family Medicine; Visit Provider Internal Medicine Rheumatology | DX: H20.9 Unspecified iridocyclitis (principal); D86.9 Sarcoidosis, unspecified; R59.0 Localized enlarged lymph nodes; R21 Rash and other nonspecific skin eruption; Z79.899 Other long term (current) drug therapy; Z71.85 Encounter for immunization safety counseling; Z87.891 Personal history of nicotine dependence | CPT/HCPCS: 36415; 80076; 82565; 85025; 85651; 86140; 99214 ==

== ENCOUNTER → 2024-03-21 09:23 | Outpatient (BNVA) | payer OTHER, SELFPAY | PROVIDERS: PCP Family Medicine; Visit Provider Nurse Practitioner Family | DX: L92.1 Necrobiosis lipoidica, not elsewhere classified (principal); L30.8 Other specified dermatitis; D86.9 Sarcoidosis, unspecified; R60.0 Localized edema; L57.8 Other skin changes due to chronic exposure to nonionizing radiation; L81.4 Other melanin hyperpigmentation; D22.4 Melanocytic nevi of scalp and neck | CPT/HCPCS: 99214 ==

== ENCOUNTER → 2024-05-08 07:30 | Outpatient (BNVA) | payer OTHER, SELFPAY | PROVIDERS: PCP Family Medicine; Visit Provider Podiatrist Foot & Ankle Surgery | DX: M79.671 Pain in right foot (principal); S90.851A Superficial foreign body, right foot, initial encounter; X58.XXXA Exposure to other specified factors, initial encounter | CPT/HCPCS: 73630; 99213 ==

== ENCOUNTER 2024-05-22 08:31 | Outpatient (CLI) | payer OTHER, SELFPAY ==
--- NOTE | 2024-05-22 08:45 | MR_ITS ---
WS: [id number] MRI RIGHT ANKLE WITHOUT CONTRAST. COMPARISON: Radiograph 05/08/2024 Multiplanar, multisequence imaging is performed without contrast. Patient has extensive plate and screw fixation across the tibiotalar joint extending into the calcane us. Resection of the distal fibula. This hardware is causing significant limitations of the MRI. As per history there is a palpable mass involving the plantar surface of the posterior calcaneus. Bairon ng the plantar surface of the posterior calcaneus is a 9 x 8 mm low-attenuation mass on all sequences in the superficial soft tissue of the calcaneus. This does not extend to the calcaneus. There does appear to be edema surrounding the ankle. The Achilles tendon is intact. Fusion across the tibiotalar joint. The tibiotalar articular surfaces are narrowed and irregular. As visualized the pe roneal tendons, flexor and extensor tendons are negative. This study is insufficient to evaluate the ligaments at the ankle joint. MR/MR ankle RT wo con* [id number] IMPRESSION: 1. Mass along the plantar surface of the posterior calcaneus is most likely an area of fibrosis or fibroma. Low signal on all sequences. 2. Evaluation of the remaining ankle is significantly compromised by extensive hardware causing artifact. 3. Hardware fusion across the tibiotalar joint.
== END 2024-05-22 08:32 | disposition home or self-care (01) ==
LOC: RAD 08:32
PROVIDERS: PCP Family Medicine; Visit Provider Podiatrist Foot & Ankle Surgery
DX: R22.41 Localized swelling, mass and lump, right lower limb (principal)
CPT/HCPCS: 73721

== ENCOUNTER → 2024-05-29 09:00 | Outpatient (BNVA) | payer OTHER, SELFPAY | PROVIDERS: PCP Family Medicine; Visit Provider Podiatrist Foot & Ankle Surgery | DX: D21.21 Benign neoplasm of connective and other soft tissue of right lower limb, including hip (principal); M79.671 Pain in right foot | CPT/HCPCS: 20550; J1100; J3301; J3490 ==

== ENCOUNTER → 2024-07-11 13:40 | Outpatient (BNVA) | payer OTHER, SELFPAY | PROVIDERS: PCP Family Medicine; Visit Provider Podiatrist Foot & Ankle Surgery | DX: D21.21 Benign neoplasm of connective and other soft tissue of right lower limb, including hip (principal); M79.671 Pain in right foot; Z98.1 Arthrodesis status | CPT/HCPCS: 99213 ==

== ENCOUNTER → 2024-07-13 10:15 | Outpatient (BNVA) | payer OTHER, SELFPAY | PROVIDERS: PCP Family Medicine; Visit Provider Internal Medicine Rheumatology | DX: H20.9 Unspecified iridocyclitis (principal); D86.9 Sarcoidosis, unspecified; Z71.89 Other specified counseling; Z79.899 Other long term (current) drug therapy; R59.0 Localized enlarged lymph nodes; R21 Rash and other nonspecific skin eruption | CPT/HCPCS: 99214 ==

== ENCOUNTER 2024-09-28 03:45 | Observation (INO) | payer OTHER, SELFPAY ==
[2024-09-28] VITALS (25 sets, daily range): BP systolic 132–182; BP diastolic 69–98; PULSE 51–70; RESP 11–20; TEMP 36.1–36.9; O2SAT 91–98; BMI 37.5; BMI 38.8
--- NOTE | 2024-09-28 04:05 | ECG_ITS ---
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 Measurements Intervals [place] Rate: 60 P: 107 IN: 180 QRS: -1 QRSD: 110 T: 40 QT: 407 QTc: 408 Interpretive Statements SINUS RHYTHM INCOMPLETE RIGHT BUNDLE BRANCH BLOCK [90+ ms QRS DURATION, TERMINAL R IN V1/V2, 40+ ms S IN I/aVL/V4/V5/V6] Compared to ECG 07/23/2023 11:26:57 Incomplete right bundle-branch block now present T-wave abnormality no longer present Electronically Signed On 09-30-2024 13:13:15 CDT by Jennifer Voss M.D. [id number] [id number]
--- NOTE | 2024-09-28 04:06 | ED_ITS ---
HPI - Abdominal Pain 2 General: Chief Complaint: Abdominal Pain Stated Complaint: Upper ABD Pain to Back\ Rt Side Time Seen by Provider: 09/28/24 03:48 History of Present Illness: Patient presents to the ER with complaints of epigastric/right upper quadrant pain that radiates to his back. Symptoms been going on for about 2 days since his birthday. Patient says eating definitely makes it worse. Patient still has his gallbladder. Patient states never had this before. Denies any alcohol use, or pancreatitis, history of hypertension. Patient does have sarcoidosis, patient's last meal was 6:30 PM yesterday. Related Data Home Medications ?Medication ?Instructions ?Recorded ?Confirmed albuterol sulfate 90 mcg/actuation 2 puff inhalation Q 6H PRN 01/11/21 07/13/24 aerosol inhaler (ProAir HFA) Shortness Of Breath cetirizine 10 mg capsule (Zyrtec) 10 mg PO DAILY PRN A llergy Symptoms 03/12/21 07/13/24 cyclobenzaprine 5 mg tablet 5 mg PO ONCE PRN Muscle Sp asm 12/15/21 07/13/24 lisinopril PO 01/27/24 07/13/24 Previous Rx's ?Medication ?Instructions ?Recorded non articulating AFO with rocker #1 ea 09/16/23 bottom shoes 2-pairs of custom orthics with 2 #1 ea 07/11/24 pairs of ROCKER bottom orthopedic shoes clobetasol 0.05 % topical cream 1 applic topical BID 2 weeks #60 07/13/24 grams hydroxychloroquine 200 mg tablet 200 mg PO BID #180 ta bs 07/13/24 Allergies Allergy/AdvReac Type Severity Reaction Status Date / Time azathioprine AdvReac Severe liver Verified 07/11/24 13:48 failure Review of Systems 2 General: Reports: 10 or more systems reviewed and unremarkable except in HPI and below PFSH ED 2 PFSH: Medical History Skin rash Intra-abdominal lymphadenopathy Lymphadenopathy Drug-induced liver injury Uveitis in remission Sarcoidosis Surgical History H/O ankle fusion rt 04/02/2023 S/P lymph node biopsy (01/30/21) Right inguinal S/P tonsillectomy Family History Mother Congestive heart failure (CHF) Hypertension Father Diabetes Social History Smoking and tobacco/nicotine status: former use of tobacco/nicotine Quit status (tobacco/nicotine): has quit using Year quit tobacco: 2011 Former quit date comment: 2ppd X 20 years Alcohol intake: current Alcohol intake frequency: holidays/special occasions only Substance/Drug Use: former Date of last use: 1989 Household members: spouse Physical Exam 2 Const: COMMON NORMALS: no acute distress, average body habitus, patient oriented x3, no limitations, healthy appearing, alert and well nourished HENMT: COMMON NORMALS: normocephalic, atraumatic, hearing grossly normal bilaterally, external ears normal, Normal external nose present, moist oral mucous membranes and oropharynx normal HEAD & SCALP: normocephalic and atraumatic NOSE: Normal external nose present EXTERNAL EAR: Yes external ears normal Eye: COMMON NORMALS: Equal, round and reactive pupils present, EOMs intact bilaterally, conjunctivae normal and no scleral icterus CONJUNCTIVA: Yes conjunctivae normal PUPIL: Yes Equal, round and reactive pupils present Neck/C-Spine: COMMON NORMALS: no JVD Chest: COMMONS NORMALS: normal inspection of the chest and normal palpation of entire chest wall Resp: COMMON NORMALS: normal respiratory effort, No retractions, No use of accessory muscles and clear to auscultation bilaterally AUSCULTATION: clear to auscultation bilaterally Cardio: COMMON NORMALS: no JVD, regular rate, regular rhythm, S1 normal heart sound present, S2 normal heart sound present, No gallops present (Cardio), No clicks present (Cardio), No murmurs present (Cardio) and No rub (Cardio) R ATE: regular rate RHYTHM: regular rhythm HEART SOUNDS: S1 normal heart sound present and S2 normal heart sound present GI: COMMON NORMALS: Normal to inspection, nondistended, normoactive bowel sounds present, Soft to palpation, non-tender, No hepatosplenomegaly present and no masses PALPATION: Yes Soft to palpation and Yes No hepatosplenomegaly present Neuro: COMMON NORMALS: patient oriented x3 SENSORIUM/ORIENTATION: Yes alert Course 2 Vital Signs: Vital signs: Vital Signs Temperature 97.8 F 09/28/24 03:52 Pulse Rate 69 09/28/24 05:06 Respiratory Rate 16 09/28/24 03:52 Blood Pressure 137/69 09/28/24 05:06 Pulse Oximetry 94 09/28/24 05:06 Oxygen Delivery Me thod Room Air 09/28/24 05:06 MDM - Abdominal Pain Medical Decision Making Lab work was reviewed, CT scan showed acute cholecystitis, Dr. Campos was notified, we will admit to Dr. Campos, we will give Rj keep the patient n.p.o. Medical Records I reviewed the patient's medical records. Lab Data I reviewed the patient's lab results. 09/28/24 03:58 09/28/24 03:58 Labs/Radiology: Radiology Impressions Abdomen/Pelvis CT 09/28/24 04:36 IMPRESSION: 1. Acute cholecystitis suspected. 2. Multiple small pulmonary nodules at the lung bases redemonstrated. Laboratory Results WBC 11.76 10^3/uL (3.29-11.43) H 09/28/24 03:58 RBC 4.86 10^6/uL (3.85-5.65) 09/28/24 03:58 Hgb 15.30 g/dL (11.27-16.99) 09/28/24 03:58 Hct 44.8 % (37-53) 09/28/24 03:58 MCV 92.2 fl (82-101) 09/28/24 03:58 MCH 31.5 pg (27-33) 09/28/24 03:58 MCHC 34.2 g/dL (30-55) 09/28/24 03:58 RDW 13.2 % (12.1-15.1) 09/28/24 03:58 Plt Count 233 10^3/cmm (157-399) 09/28/24 03:58 MPV 9.8 fL (7.4-10.4) 09/28/24 03:58 Neut % (Auto) 82.7 % 09/28/24 03:58 Lymph % (Auto) 7.8 % 09/28/24 03:58 [place] % (Auto) 8.0 % 09/28/24 03:58 Eos % (Auto) 0.8 % 09/28/24 03:58 Baso % (Auto) 0.4 % 09/28/24 03:58 Neut # (Auto) 9.72 10^3/uL (1.8-7.7) H 09/28/24 03:58 Lymph # (Auto) 0.9 10^3/uL (0.8-4.8) 09/28/24 03:58 [place] # (Auto) 0.9 10^3/uL (0.2-0.9) 09/28/24 03:58 Eos # (Auto) 0.1 10^3/uL (0.0-0.8) 09/28/24 03:58 Baso # (Auto) 0.1 10^3/uL (0.0-0.1) 09/28/24 03:58 Nucleated RBC % (auto) 0 % 09/28/24 03:58 Nucleated RBCs # 0.0 /100WBC 09/28/24 03:58 Sodium 138 mmol/L (136-145) 09/28/24 03:58 Potassium 4.4 mmol/L (3.5-5.1) 09/28/24 03:58 Chloride 103 mmol/L (98-107) 09/28/24 03:58 Carbon Dioxide 24 mmol/L (22-29) 09/28/24 03:58 Anion Gap 15.4 (5-19) 09/28/24 03:58 BUN 13 mg/dL (6-20) 09/28/24 03:58 Creatinine 0.9 mg/dL (0.7-1.2) 09/28/24 03:58 GFR Calculation 89.0 mL/min (90-130) L 09/28/24 03:58 Glucose 131 mg/dL (65-115) H 09/28/24 03:58 Calculated Osmolality 288 mOsm/kg (285-295) 09/28/24 03:58 Lactic Acid 1.1 mmol/L (0.5-2.2) 09/28/24 03:58 Calcium 9.4 mg/dL (8.5-10.5) 09/28/24 03:58 Phosphorus 3.1 mg/dL (2.5-4.5) 09/28/24 03:58 Magnesium 1.9 mg/dL (1.7-2.3) 09/28/24 03:58 Total Bilirubin 0.5 mg/dL (0.15-1.2) 09/28/24 03:58 AST 21 U/L (0-40) 09/28/24 03:58 ALT 30 U/L (0-41) 09/28/24 03:58 Alkaline Phosphatase 93 U/L (40-130) 09/28/24 03:58 C-Reactive Protein 11.8 mg/L (0.0-4.9) H 09/28/24 03:58 Total Protein 7.0 g/dL (6.6-8.7) 09/28/24 03:58 Albumin 4.4 g/dL (3.5-5.2) 09/28/24 03:58 Globulin 2.6 g/dL (1.3-4.6) 09/28/24 03:58 Lipase 12 U/L (13-60) L 09/28/24 03:58 Procalcitonin 0.06 ng/mL (0-0.5) 09/28/24 03:58 Urine Color Yellow (Yellow) 09/28/24 03:50 Urine Appearance Clear (CLEAR) 09/28/24 03:50 Urine pH 7 (5-7) 09/28/24 03:50 Ur Specific [place] 1.010 (1.005-1.030) 09/28/24 03:50 Urine Protein Neg (Negative) 09/28/24 03:50 Urine Glucose (UA) Norm (Normal) 09/28/24 03:50 Urine Ketones Negative (Negative) 09/28/24 03:50 Urine Blood Neg (Negative) 09/28/24 03:50 Urine Nitrate Negative (Negative) 09/28/24 03:50 Urine Bilirubin Neg (Negative) 09/28/24 03:50 Urine Urobilinogen Neg mg/dL (Negative) 09/28/24 03:50 Ur Leukocyte Esterase Negative (Negative) 09/28/24 03:50 Urine RBC 0-2 /hpf (0-2) 09/28/24 03:50 Urine WBC 0-5 /hpf (0-5) 09/28/24 03:50 Ur Squamous Epith Cells 0-5 /hpf (0-5) 09/28/24 03:50 Amorphous Sediment Not Reportable 09/28/24 03:50 Urine Bacteria None seen /hpf (NONE) 09/28/24 03:50 Hyaline Casts 0-4 /lpf H 09/28/24 03:50 All radiology interpretation(s) finalized by discharge Discharge Plan Discharge Patient Disposition: Admitted As Inpatient Clinical Impression: Acute cholecystitis Condition: Stable Coding Level of Care Code ED Family Medicine Chair for Eliel Scruggs
[2024-09-28 04:11] LABS: Basophils # 0.1 10^3/uL (0.0-0.1); Basophils % 0.4 %; Eosinophils # 0.1 10^3/uL (0.0-0.8); Eosinophils % 0.8 %; Hematocrit 44.8 % (37-53); Lymphocytes # 0.9 10^3/uL (0.8-4.8); Lymphocytes % 7.8 %; Mean Corpuscular HGB Conc 34.2 g/dL (30-55); Mean Corpuscular Hemoglobin 31.5 pg (27-33); Mean Corpuscular Volume 92.2 fl (82-101); Mean Platelet Volume 9.8 fL (7.4-10.4); Monocytes # 0.9 10^3/uL (0.2-0.9); Neutrophils # 9.72 10^3/uL (1.8-7.7); Neutrophils % 82.7 %; Nucleated Red Blood Cells % 0 %; Platelet Count 233 10^3/cmm (157-399); Red Blood Count 4.86 10^6/uL (3.85-5.65); Red Cell Distribution Width 13.2 % (12.1-15.1); White Blood Count 11.76 10^3/uL (3.29-11.43)
[2024-09-28] MEDS: ketorolac 30 mg/mL INJ IVP (04:12)
[2024-09-28] MEDS: ondansetron 2 mg/ML SDV 2 mL 4 MG IVP (04:12)
[2024-09-28 04:25] LABS: Alanine Aminotransferase 30 U/L (0-41); Albumin Level 4.4 g/dL (3.5-5.2); Alkaline Phosphatase 93 U/L (40-130); Anion Gap 15.4 (5-19); Aspartate Amino Transferase 21 U/L (0-40); Blood Urea Nitrogen 13 mg/dL (6-20); C Reactive Protein 11.8 mg/L (0.0-4.9); Calcium 9.4 mg/dL (8.5-10.5); Carbon Dioxide 24 mmol/L (22-29); Chloride 103 mmol/L (98-107); Creatinine Clr Calc Pharmacy 144.3932; Globulin 2.6 g/dL (1.3-4.6); Glucose 131 mg/dL (65-115); Lipase 12 U/L (13-60); Magnesium 1.9 mg/dL (1.7-2.3); Osmolality Calculated 288 mOsm/kg (285-295); Phosphorus 3.1 mg/dL (2.5-4.5); Potassium 4.4 mmol/L (3.5-5.1); Sodium 138 mmol/L (136-145); Total Bilirubin 0.5 mg/dL (0.15-1.2)
[2024-09-28 04:26] LABS: Lactic Sepsis W/Reflex 1.1 mmol/L (0.5-2.2)
[2024-09-28 04:26] LABS: Bacteria Urine None Seen /hpf; Hyaline Casts Urine 0-4 /lpf; RBC Urine 0-2 /hpf (0-2); Squamous Epithelial Cell Urine 0-5 /hpf (0-5); WBC Urine 0-5 /hpf (0-5)
[2024-09-28 04:32] LABS: Procalcitonin 0.06 ng/mL (0-0.5)
[2024-09-28 04:34] LABS: Add Urine Microscopic? YES; Bilirubin Urine Neg (Negative); Blood Urine Neg (Negative); Glucose Urine UA Norm (Normal); Ketones Urine Negative (Negative); Leukocyte Esterase Urine Negative (Negative); Nitrate Urine Negative (Negative); Protein Urine Neg (Negative); Urine Appearance Clear (CLEAR); Urine Color Yellow (Yellow); Urobilinogen Urine Neg (Negative); pH Urine 7 (5-7)
--- NOTE | 2024-09-28 04:36 | CTR_ITS ---
PROCEDURE INFORMATION: Exam: CT Abdomen And Pelvis With Contrast Exam date and time: 09/28/2024 4:43 AM Age: 49 years old Clinical indication: Abdominal pain; Epigastric; Additional info: Right upper quadrant pain, nausea vomiting TECHNIQUE: Imaging protocol: Computed tomography of the abdomen and pelvis with contrast. Radiation optimization: All CT scans at this facility use at least one of these dose optimization techniques: automated exposure control; mA and/or kV adjustment per patient size (includes targeted exams where dose is matched to clinical indication); or iterative reconstruction. Contrast material: OMNI 350; Contrast volume: 100 ml; Contrast route: INTRAVENOUS (IV); COMPARISON: CT chest abd wo [id number] 09/14/2023 8:06 AM RADIATION DOSE METRICS: Total DLP (mGy-cm): 1304.43 FINDINGS: Lungs: 6 mm diameter circumscribed noncalcified pulmonary nodule within the posterolateral right lower lobe redemonstrated without interval change. Additional tiny pulmonary nodular densities at the inferior margin of the posterior left lower lobe. There is a mild degree of smooth septal thickening in the lower lungs bilaterally. Small perifissural nodules along the anterior inferior margin of the right lower lobe. Liver: Normal. No mass. Gallbladder and biliary ducts: Large ovoid density in the gallbladder neck. Pericholecystic stranding. Mild gallbladder wall thickening. Negative for biliary system dilation. Pancreas: Normal. No ductal dilation. Spleen: Normal. No splenomegaly. Adrenal glands: Normal. No mass. Kidneys and ureters: Normal. No hydronephrosis. Stomach and bowel: Unremarkable. No obstruction. No mucosal thickening. Appendix: No evidence of appendicitis. Intraperitoneal space: Unremarkable. No free air. No significant fluid collection. Vasculature: Unremarkable. No abdominal aortic aneurysm. Lymph nodes: Unremarkable. No enlarged lymph nodes. Urinary bladder: Unremarkable as visualized. Reproductive: Unremarkable as visualized. Bones/joints: Unremarkable. No acute fracture. Soft tissues: Small fat containing umbilical hernia. CT/CT abdomen pelvis w con* [id number] IMPRESSION: 1. Acute cholecystitis suspected. 2. Multiple small pulmonary nodules at the lung bases redemonstrated.
[2024-09-28] MEDS: iohexol 350 mg/mL 500 mL Btl (per mL) IV (04:49)
[2024-09-28] MEDS: cefTRIAXone 1,000 mg SDV 1000 MG IVP ×2 (05:43→12:14)
--- NOTE | 2024-09-28 07:11 | PC.PHAR ---
[facility] 09/28/24 7:10am
--- NOTE | 2024-09-28 08:50 | PM.HP ---
Providers/Chief Complaint Admitting Physician: Jose A Campos MD Primary Care Provider: Ailyn Hollingsworth MD Chief Complaint: Upper ABD Pain to Back\ Rt Side History of Present Illness Greg Fernández is a 49 year old male who presents with acute cholecystitis. Patient reports right upper quadrant pain started yesterday. Some nausea. No prior abdominal surgeries. Medications/Allergies Home Medications ?Medication ?Instructions ?Recorded ?Confirmed ?Last Taken ?Type non articulating AFO with rocker #1 ea 09/16/23 09/28/24 Unknown Rx bottom shoes 2-pairs of custom orthics with 2 #1 ea 07/11/24 09/28/24 Unknown Rx pairs of ROCKER bottom orthopedic shoes clobetasol 0.05 % topical cream 1 applic topical BID 2 weeks #60 07/13/24 09/28/24 Unknown Rx grams hydroxychloroquine 200 mg tablet 200 mg PO BID #180 tabs 07/13/24 09/28/24 Unknown Rx cholecalciferol (vitamin D3) 25 25 mcg PO DAILY 09/28/24 09/28/24 Unknown History mcg (1,000 unit) tablet (Vitamin D3) ibuprofen 400 mg tablet 400 mg PO QID 09/28/24 09/28/24 Unknown History lidocaine 5 % topical patch 1 patch topical DAILY 09/28/24 09/28/24 Unknown History lisinopril 20 mg tablet 10 mg PO DAILY 09/28/24 09/28/24 Unknown History Allergies Allergy/AdvReac Type Severity Reaction Status Date / Time azathioprine AdvReac Severe liver Verified 07/11/24 13:48 failure PFSH Acute PFSH: Medical History Skin rash Intra-abdominal lymphadenopathy Lymphadenopathy Drug-induced liver injury Uveitis in remission Sarcoidosis Surgical History H/O ankle fusion rt 04/02/2023 S/P lymph node biopsy (01/30/21) Right inguinal S/P tonsillectomy Family History Mother Congestive heart failure (CHF) Hypertension Father Diabetes Social History Smoking and tobacco/nicotine status: former use of tobacco/nicotine Quit status (tobacco/nicotine): has quit using Year quit tobacco: 2011 Former quit date comment: 2ppd X 20 years Alcohol intake: current Alcohol intake frequency: holidays/special occasions only Substance/Drug Use: former Date of last use: 1989 Household members: spouse Vitals/I&O/Wt Last Vital Signs Temp 97.8 F 09/28/24 03:52 Pulse 58 L 09/28/24 07:50 Resp 18 09/28/24 06:00 BP 144/81 09/28/24 07:50 Pulse Ox 97 09/28/24 07:50 O2 Del Method Room Air 09/28/24 06:30 09/27/24 09/28/24 09/28/24 22:59 06:59 14:59 Intake Total 0 / 0 Balance 0 / 0 Weight last 48 hrs Weight 300 lb Physical Exam Narrative: Chest: Unlabored breathing room air. No lymphadenopathy. Heart: Regular rate and rhythm. Abdomen: Soft, tender right upper quadrant, nondistended. No masses or lymphadenopathy. Data 09/28/24 03:58 09/28/24 03:58 A&P Assessment and plan (1) Acute cholecystitis: Plan 49-year-old male who presents with acute cholecystitis. Discussed risk and benefits and patient agrees to proceed with laparoscopic cholecystectomy possible open. PDMP PDMP Reviewed: Not Reviewed Attestations Medical Necessity Statement*: Needs less than 48 hours observation due to IV pain meds, IV fluids, serial physical exams. Coding Level of Care Code 20425 Diagnoses Acute cholecystitis K81.0
--- NOTE | 2024-09-28 11:13 | ANES.PREANE2 ---
Pre-Anesthetic Assessment Height/Weight: Height 6 ft 3 in Weight 310 lb 11.2 oz Temp Pulse Resp BP Pulse Ox O2 Del Method 98.0 F 58 L 18 144/81 97 Room Air 09/28/24 07:25 09/28/24 07:50 09/28/24 07:25 09/28/24 07:50 09/28/24 07:50 09/28/24 07:25 Preop Diagnosis: Acute cholecystitis Operation Date: 09/28/24 12:10 Proposed Procedures p Laparoscopic Cholecystectomy(Not Applicable) - Jose A Campos MD Was Beta Jessica taken within 24 hours: N/A Was Clonidine taken within 24 hours: N/A Social No alcohol and No tobacco Exam alert, oriented x 3, clear to auscultation bilaterally and regular rate & rhythm Airway Submandibular: within normal limits Cervical ROM: within normal limits Mallampati: Class II Dentition: full Anesthetic Plan ASA status: 3 Anesthesia: General Other: No prior issues with anesthesia NPO since yesterday. Patient has been experiencing nausea/vomiting. Most recent episode of emesis was this morning Patient arrives in acute appendicitis History of hypertension on lisinopril Labs reviewed and acceptable for procedure today EKG showing sinus rhythm with incomplete right BBB Plan for GETA Medications/Allergies Home Medications ?Medication ?Instructions ?Recorded ?Confirmed ?Last Taken ?Type non articulating AFO with rocker #1 ea 09/16/23 09/28/24 Unknown Rx bottom shoes 2-pairs of custom orthics with 2 #1 ea 07/11/24 09/28/24 Unknown Rx pairs of ROCKER bottom orthopedic shoes clobetasol 0.05 % topical cream 1 applic topical BID 2 weeks #60 07/13/24 09/28/24 Unknown Rx grams hydroxychloroquine 200 mg tablet 200 mg PO BID #180 tabs 07/13/24 09/28/24 Unknown Rx cholecalciferol (vitamin D3) 25 25 mcg PO DAILY 09/28/24 09/28/24 Unknown History mcg (1,000 unit) tablet (Vitamin D3) ibuprofen 400 mg tablet 400 mg PO QID 09/28/24 09/28/24 Unknown History lidocaine 5 % topical patch 1 patch topical DAILY 09/28/24 09/28/24 Unknown History lisinopril 20 mg tablet 10 mg PO DAILY 09/28/24 09/28/24 Unknown History Allergies Allergy/AdvReac Type Severity Reaction Status Date / Time azathioprine AdvReac Severe liver Verified 07/11/24 13:48 failure [facility] Anesthesia Medical History Skin rash Intra-abdominal lymphadenopathy Lymphadenopathy Drug-induced liver injury Uveitis in remission Sarcoidosis Surgical History H/O ankle fusion rt 04/02/2023 S/P lymph node biopsy (01/30/21) Right inguinal S/P tonsillectomy Family History Mother Congestive heart failure (CHF) Hypertension Father Diabetes Social History Smoking and tobacco/nicotine status: former use of tobacco/nicotine Quit status (tobacco/nicotine): has quit using Year quit tobacco: 2011 Former quit date comment: 2ppd X 20 years Alcohol intake: current Alcohol intake frequency: holidays/special occasions only Substance/Drug Use: former Date of last use: 1989 Household members: spouse Data Anesthesia 09/28/24 03:58 09/28/24 03:58 Short CBC 09/28/24 Range/Units 03:58 WBC 11.76 H (3.29-11.43) 10^3/uL Hgb 15.30 (11.27-16.99) g/dL Hct 44.8 (37-53) % MCV 92.2 (82-101) fl Plt Count 233 (157-399) 10^3/cmm Neut % (Auto) 82.7 % Neut # (Auto) 9.72 H (1.8-7.7) 10^3/uL BMP 09/28/24 03:58 Sodium 138 Potassium 4.4 Chloride 103 Carbon Dioxide 24 BUN 13 Creatinine 0.9 Glucose 131 H Calcium 9.4 Liver Function 09/28/24 Range/Units 03:58 Total Bilirubin 0.5 (0.15-1.2) mg/dL AST 21 (0-40) U/L ALT 30 (0-41) U/L Alkaline Phosphatase 93 (40-130) U/L Albumin 4.4 (3.5-5.2) g/dL Urine 04/10/25 Range/Units 03:50 Urine Color Yellow (Yellow) Urine Appearance Clear (CLEAR) Urine pH 7 (5-7) Ur Specific [place] 1.010 (1.005-1.030) Urine Protein Neg (Negative) Urine Glucose (UA) Norm (Normal) Urine Ketones Negative (Negative) Urine Nitrate Negative (Negative) Urine Bilirubin Neg (Negative) Ur Leukocyte Esterase Negative (Negative) Urine RBC 0-2 (0-2) /hpf Urine WBC 0-5 (0-5) /hpf Coags 09/28/24 03:58 C-Reactive Protein 11.8 H Cardiac Studies: Echocardiogram Ultrasound 07/25/19
[2024-09-28] MEDS: lactated ringers 1,000 ML 100 ML IV (11:17)
--- NOTE | 2024-09-28 11:46 | PC.NURSE ---
It was brought to my attention that report did not get called to Med Surg this morning on this patient before he went to the floor. I called and apologized to Rosa Maria the charge nurse on Med Surg and I called and apologized to Perez the nurse who is taking care of this patient on Med Surg. I had a miscommunicaiton with Adele my charge nurse and she did not call report to Med Surg this morning. I have no called report and apologized for making the mistake and ensured Rosa Maria and Perez that it would not happen again.
[2024-09-28] MEDS: lidocaine-epi 1% 20 mL INJ INJECTION (12:43)
--- NOTE | 2024-09-28 13:21 | P.OP_ITS ---
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 Condition: stable Disposition: observation Brief History: 49-year-old male who presented with acute cholecystitis. Discussed risk and benefits and patient agreed to proceed with laparoscopic cholecystectomy possible open. Procedure: I discussed the risks and benefits of laparoscopic cholecystectomy, and obtained consent prior to proceeding to the operating room. SCDs were utilized. Prophylactic antibiotics were administered. General anesthesia was induced. The patient was placed supine, and he was prepped and draped in the usual sterile fashion. Insufflation to 15mmHg was attempted using a Veress needle at Mackey's point. It was unsuccessful. I then elected to perform a gassless entry at Mackey's point using a 5-mm optiview trocar. Entry was successful. Insufflation to 15mmHg was then achieved. No iatrogenic injuries were identified. A 5mm optiview trocar was placed at the umbilicus. The left upper quadrant was inspe cted, and no injuries were noted. Two 5mm ports were placed in the right upper quadrant, and a 12mm working port was placed in the epigastrium. The gallbladder was then retracted cephalad through the lateral RUQ port, and the infundibulum grabbed through the medial RUQ port and retracted laterally. The gallbladder was inflammed and hydropic consistent with his diagnosis of cholecystitis. I proceed ed to score the peritoneum over the medial aspect of the gallbladder using a laparoscopic hook with electrocautery. Then the infundibulum was retracted medially in order to score the peritoneum over the lateral aspect of the galbladder. Using a combination of energy and blunt dissection with the [place] and a Kittner dissector, the cystic artery and cystic duct were dissected. I then proceeded to dissect the cystic plate in order to to achieve the critical view of safety. The cystic artery and the cystic duct were clipped three times (leaving two clips on the proximal end of both structures). I then proceeded to dissect the gallbladder off the liver using hook electrocautery. The specimen was placed in an endocatch bag and retrieved from the abdomen through the port on the epigastrium. I then irrigated the gallbladder fossa with 1L of NS to confirm adequate hemostasis and the absence of any bile leaks. The gallbladder fossa was then cauterized again. Prior to ending the laparoscopic portion, I examined the rest of the abdomen and did not find any abnormalities or injuries. The abdomen was then desufflated. Skin was closed using 4-0 monocryl and surgical glue. The patient woke up from anesthesia and transferred to PACU without any complications.
--- NOTE | 2024-09-28 14:14 | ANE.PACU2 ---
Inpatient post-anesthesia follow up: Airway intact: Yes Vital signs: Temperature 98.0 F Pulse Rate 60 Respiratory Rate 17 Blood Pressure 153/85 Pulse Oximetry 95 Oxygen Delivery Me thod Room Air Oxygen Flow Rate 2 Fraction of Inspir ed Oxygen Hydration adequate: Yes Nausea and vomiting: No Pain level: 1 Mental status: Baseline
[2024-09-28] MEDS: oxyCODONE 5 mg IR Tab/Cap PO (20:56)
[2024-09-29 04:31] VITALS: BP 119/73; PULSE 61; RESP 17; TEMP 36.6; O2SAT 93
[2024-09-29 06:28] VITALS: BMI 38.7
[2024-09-29 07:06] VITALS: BP 130/83; PULSE 56; RESP 15; TEMP 36.7; O2SAT 95
--- NOTE | 2024-09-29 08:56 | P.PN_ITS ---
Subjective 2 Subjective: In the shower feeling better Vitals/I&O/Wt Last Vital Signs Temp 98.0 F 09/29/24 07:06 Pulse 56 L 09/29/24 07:06 Resp 15 09/29/24 07:06 BP 130/83 09/29/24 07:06 Pulse Ox 95 09/29/24 07:06 O2 Del Method Room Air 09/29/24 07:06 O2 Flow Rate 2 09/28/24 14:01 09/28/24 09/29/24 09/29/24 22:59 06:59 14:59 Intake Total 563.333 / 563.333 600 / 1163.333 240 / 240 Output Total 175 / 180 Balance 563.333 / 558.333 425 / 983.333 240 / 240 Weight last 48 hrs Weight 310 lb Weight 310 lb 11.2 oz Weight 300 lb Physical Exam 2 Narrative: Chest: Unlabored breathing room air. No lymphadenopathy. Heart: Regular rate and rhythm. Abdomen: Soft, mildly tender, nondistended. No masses or lymphadenopathy. Incisions well-healed. Data 09/28/24 03:58 09/28/24 03:58 A&P Assessment and plan (1) Acute cholecystitis: Plan 49-year-old male status post lap vicki. Doing well. Cleared for discharge. PDMP PDMP Reviewed: Last Reviewed 09/29/24 09:56 EDT by Jose A Campos MD Attestations 2 Medical Necessity Statement*: IV pain meds IV fluids, Coding Level of Care Code 88221 Diagnoses Acute cholecystitis K81.0
--- NOTE | 2024-09-29 08:57 | PM.DCS ---
Discharge Providers Date of Admission: 09/28/24 09:44 Date of Discharge: September 29, 2024 Attending Provider at Admission: Jose A Campos MD Attending Provider at Discharge: Jose A Campos MD Primary Care Provider: Ailyn Hollingsworth MD Diagnoses at Discharge Discharge Diagnosis (1) Acute cholecystitis: Status: Acute Reason for Visit Reason for Visit: Upper ABD Pain to Back\ Rt Side Hospital Course Hospital Course 49-year-old male who presented with acute cholecystitis. Admitted to the hospital. Started treated with IV antibiotics. Proceeded with laparoscopic cholecystectomy. Did well postoperatively. Discharged the following day. Will follow-up in clinic in 2 weeks. Physical Exam Narrative: Chest: Unlabored breathing room air. No lymphadenopathy. Heart: Regular rate and rhythm. Abdomen: Soft, mildly tender, nondistended. No masses or lymphadenopathy. Incisions are well-healed. Discharge Data Studies Completed and Pending Completed Studies During Hospitalization Category Date Time Status CT abdomen pelvis w con* [id number] Stat Cat Scan 09/28/24 04:36 Completed Pending at discharge Category Date Time Status Pathology: Surgical [PTH] Routine Pth 09/28/24 13:28 Received Radiology Impressions Abdomen/Pelvis CT 09/28/24 04:36 IMPRESSION: 1. Acute cholecystitis suspected. 2. Multiple small pulmonary nodules at the lung bases redemonstrated. Laboratory Results WBC 11.76 10^3/uL (3.29-11.43) H 09/28/24 03:58 RBC 4.86 10^6/uL (3.85-5.65) 09/28/24 03:58 Hgb 15.30 g/dL (11.27-16.99) 09/28/24 03:58 Hct 44.8 % (37-53) 09/28/24 03:58 MCV 92.2 fl (82-101) 09/28/24 03:58 MCH 31.5 pg (27-33) 09/28/24 03:58 MCHC 34.2 g/dL (30-55) 09/28/24 03:58 RDW 13.2 % (12.1-15.1) 09/28/24 03:58 Plt Count 233 10^3/cmm (157-399) 09/28/24 03:58 MPV 9.8 fL (7.4-10.4) 09/28/24 03:58 Neut % (Auto) 82.7 % 09/28/24 03:58 Lymph % (Auto) 7.8 % 09/28/24 03:58 Slope % (Auto) 8.0 % 09/28/24 03:58 Eos % (Auto) 0.8 % 09/28/24 03:58 Baso % (Auto) 0.4 % 09/28/24 03:58 Neut # (Auto) 9.72 10^3/uL (1.8-7.7) H 09/28/24 03:58 Lymph # (Auto) 0.9 10^3/uL (0.8-4.8) 09/28/24 03:58 Slope # (Auto) 0.9 10^3/uL (0.2-0.9) 09/28/24 03:58 Eos # (Auto) 0.1 10^3/uL (0.0-0.8) 09/28/24 03:58 Baso # (Auto) 0.1 10^3/uL (0.0-0.1) 09/28/24 03:58 Nucleated RBC % (auto) 0 % 09/28/24 03:58 Nucleated RBCs # 0.0 /100WBC 09/28/24 03:58 Sodium 138 mmol/L (136-145) 09/28/24 03:58 Potassium 4.4 mmol/L (3.5-5.1) 09/28/24 03:58 Chloride 103 mmol/L (98-107) 09/28/24 03:58 Carbon Dioxide 24 mmol/L (22-29) 09/28/24 03:58 Anion Gap 15.4 (5-19) 09/28/24 03:58 BUN 13 mg/dL (6-20) 09/28/24 03:58 Creatinine 0.9 mg/dL (0.7-1.2) 09/28/24 03:58 GFR Calculation 89.0 mL/min (90-130) L 09/28/24 03:58 Glucose 131 mg/dL (65-115) H 09/28/24 03:58 Calculated Osmolality 288 mOsm/kg (285-295) 09/28/24 03:58 Lactic Acid 1.1 mmol/L (0.5-2.2) 09/28/24 03:58 Calcium 9.4 mg/dL (8.5-10.5) 09/28/24 03:58 Phosphorus 3.1 mg/dL (2.5-4.5) 09/28/24 03:58 Magnesium 1.9 mg/dL (1.7-2.3) 09/28/24 03:58 Total Bilirubin 0.5 mg/dL (0.15-1.2) 09/28/24 03:58 AST 21 U/L (0-40) 09/28/24 03:58 ALT 30 U/L (0-41) 09/28/24 03:58 Alkaline Phosphatase 93 U/L (40-130) 09/28/24 03:58 C-Reactive Protein 11.8 mg/L (0.0-4.9) H 09/28/24 03:58 Total Protein 7.0 g/dL (6.6-8.7) 09/28/24 03:58 Albumin 4.4 g/dL (3.5-5.2) 09/28/24 03:58 Globulin 2.6 g/dL (1.3-4.6) 09/28/24 03:58 Lipase 12 U/L (13-60) L 09/28/24 03:58 Procalcitonin 0.06 ng/mL (0-0.5) 09/28/24 03:58 Urine Color Yellow (Yellow) 09/28/24 03:50 Urine Appearance Clear (CLEAR) 09/28/24 03:50 Urine pH 7 (5-7) 09/28/24 03:50 Ur Specific Howard 1.010 (1.005-1.030) 09/28/24 03:50 Urine Protein Neg (Negative) 09/28/24 03:50 Urine Glucose (UA) Norm (Normal) 09/28/24 03:50 Urine Ketones Negative (Negative) 09/28/24 03:50 Urine Blood Neg (Negative) 09/28/24 03:50 Urine Nitrate Negative (Negative) 09/28/24 03:50 Urine Bilirubin Neg (Negative) 09/28/24 03:50 Urine Urobilinogen Neg mg/dL (Negative) 09/28/24 03:50 Ur Leukocyte Esterase Negative (Negative) 09/28/24 03:50 Urine RBC 0-2 /hpf (0-2) 09/28/24 03:50 Urine WBC 0-5 /hpf (0-5) 09/28/24 03:50 Ur Squamous Epith Cells 0-5 /hpf (0-5) 09/28/24 03:50 Amorphous Sediment Not Reportable 09/28/24 03:50 Urine Bacteria None seen /hpf (NONE) 09/28/24 03:50 Hyaline Casts 0-4 /lpf H 09/28/24 03:50 Vitals Last Vital Signs Temp 98.0 F 09/29/24 07:06 Pulse 56 L 09/29/24 07:06 Resp 15 09/29/24 07:06 BP 130/83 09/29/24 07:06 Pulse Ox 95 09/29/24 07:06 O2 Del Method Room Air 09/29/24 07:06 O2 Flow Rate 2 09/28/24 14:01 Discharge Plan Discharge Patient Disposition: Home Condition: Stable Prescriptions: New oxycodone 5 mg tablet 5 mg PO Q6H PRN (Reason: pain) 5 Days Qty: 10 0RF Continued (DME) non articulating AFO with rocker bottom shoes See Rx Instructions .Route .MEDSUPPLY Qty: 1 0RF Rx Instructions: As directed made by the meghan fuller (DME) 2-pairs of custom orthics with 2 pairs of ROCKER bottom orthopedic shoes See Rx Instructions .Route .MEDSUPPLY Qty: 1 0RF Rx Instructions: As directed by [facility] clobetasol 0.05 % cream 1 applic topical BID 14 Days Qty: 60 2RF hydroxychloroquine 200 mg tablet 200 mg PO BID Qty: 180 1RF lisinopril 20 mg Tablet 10 mg PO DAILY lidocaine 5 % Adhesive Patch,Medicated 1 patch TOPICAL DAILY Rx Instructions: leave on most painful area for up to 12 hrs ibuprofen 400 mg Tablet 400 mg PO QID cholecalciferol (vitamin D3) [Vitamin D3] 25 mcg (1,000 unit) Tablet 25 mcg PO DAILY Discharge Orders: Discharge Order (Routine); Ordered 09/29/24 Ordered By: Jose A Campos Referrals: Jose A Campos MD [Physician] - 10/12/24 9:15 am Ailyn Hollingsworth MD [Primary Care Provider] - (We have notified your physician's clinic of the need for a follow-up appointment to be scheduled. If you have not heard from them within the next 2 business days, please call them directly. ) Discharge Diet: Usual diet Discharge Activity: Limit activity as instructed Patient Instructions: Oxycodone, Rapid Release (By mouth), Cholecystitis (DC), Laparoscopic Cholecystectomy (GEN), Opioid Safety Activity Restrictions/Additional Instructions: 1. No heavy exercise or lifting greater than 10lbs for 6 weeks. 2. No pools, saunas, bathtubs for [address] if taking narcotics. 4. You may take over the counter tylenol 650mg every 6 hrs and ibuprofen 400mg every 6 hrs as needed for 5 days in addition to the oxycodone. 5. Follow-up in clinic in 2 weeks. 6. Call the office if you have any concerns or questions. Discharge Attestations Time Spent in Discharge Care*: greater than 30 min Quality Metrics Clinical Quality Measures [ No reported AMI, CVA or VTE this stay] Coding Level of Care Code Acute Code for [facility] Diagnoses Acute cholecystitis K81.0
[2024-09-29 09:44] VITALS: BP 130/83; PULSE 56; TEMP 36.6; O2SAT 99
--- NOTE | 2024-09-29 12:01 | PC.SOCIAL ---
Discharge orders and Meds and visit faxed to [facility] at this time.
== END 2024-09-29 09:46 | disposition home or self-care (01) ==
LOC: ER 05:33 → MEDSURG 07:52
PROVIDERS: Admitting Provider Student in an Organized Health Care Education/Training Program; Emergency Provider Emergency Medicine; PCP Family Medicine; Visit Provider Student in an Organized Health Care Education/Training Program
PROC: 0FT44ZZ Resection of Gallbladder, Percutaneous Endoscopic Approach (ICD-10-PCS; CPT 47562; principal; 2024-09-28 12:00)
DX: K80.10 Calculus of gallbladder with chronic cholecystitis without obstruction (principal); I10 Essential (primary) hypertension; Z87.891 Personal history of nicotine dependence
CPT/HCPCS: 47562; 36415; 74177; 80053; 81001; 83605; 83690; 83735; 84100; 84145; 85025; 86140; 88304; 93005; 96374; 96375; 96376; 99285; A4216; G0378; J0696; J1100; J1171; J1885; J2405; J2704; J3010; J7120; J9999

== ENCOUNTER → 2024-10-12 09:08 | Outpatient (BNVA) | payer OTHER, SELFPAY | PROVIDERS: PCP Family Medicine; Visit Provider Student in an Organized Health Care Education/Training Program | DX: Z98.890 Other specified postprocedural states (principal); Z90.49 Acquired absence of other specified parts of digestive tract | CPT/HCPCS: 99024 ==

== ENCOUNTER → 2024-10-16 11:24 | Outpatient (BNVA) | payer OTHER, SELFPAY | PROVIDERS: PCP Family Medicine; Visit Provider Podiatrist Foot & Ankle Surgery | DX: M79.671 Pain in right foot (principal); D21.21 Benign neoplasm of connective and other soft tissue of right lower limb, including hip; Z98.1 Arthrodesis status; M79.89 Other specified soft tissue disorders | CPT/HCPCS: 99213 ==

== ENCOUNTER → 2024-10-17 13:38 | Outpatient (BNVA) | payer OTHER, SELFPAY | PROVIDERS: PCP Family Medicine; Visit Provider Internal Medicine Cardiovascular Disease | DX: D86.9 Sarcoidosis, unspecified (principal); R00.2 Palpitations; Z87.891 Personal history of nicotine dependence; I10 Essential (primary) hypertension | CPT/HCPCS: 99214 ==

== ENCOUNTER 2024-11-08 06:03 | Outpatient (CLI) | payer OTHER, SELFPAY ==
--- NOTE | 2024-11-08 06:15 | USCV_ITS ---
Greg Fernández Age: 49 Gender: M : 1975 Exam Date: 11/08/2024 06:22 Ordering Phys: Bindu Aponte MD ([email or web address]) Technologist: Exam Location: [facility] – [place] Indication: sob cp BP: 132 / 78 HR: 56 Rhythm: Sinus Technical Quality: Adequate MEASUREMENTS (Male / Female) Normal Values 2D ECHO LV Diastolic Diameter PLAX 6.1 cm 4.2 - 5.9 / 3.9 - 5.3 cm IVS Diastolic Thickness 1.2 cm 0.6 - 1.0 / 0.6 - 0.9 cm IVS Systolic Thickness 1.9 cm LVPW Diastolic Thickness 1.2 cm 0.6 - 1.0 / 0.6 - 0.9 cm LVPW Systolic Thickness 2.3 cm LVOT Diameter 2.8 cm LV Ejection Fraction 2D Teich 65.0 % LV Ejection Fraction MOD 4C 70.2 % LV Ejection Fraction MOD 2C 62.4 % LV Ejection Fraction 2C AL 64.1 % LA Diameter 3.3 cm RA Systolic Volume 4C AL 50.0 ml RA Systolic Volume 4C MOD 46.2 ml LA Sys Volume AL 80.6 cm cubed LA Sys Volume Index AL 29.2 cm cubed/m squared Aorta at Sinotubular Diameter 4.0 cm IVC Diameter 3.5 cm M-MODE LA Ao Ratio MM 1.3 AV Cusp Separation MM 2.7 cm DOPPLER AV Peak Velocity 115.0 cm/s LVOT Peak Velocity 88.0 cm/s AV Area Cont Eq vti 4.8 cm squared AV Area Cont Eq pk 4.6 cm squared MV Area PHT 3.0 cm squared Mitral E to A Ratio 0.9 PV Peak Velocity 107.0 cm/s FINDINGS Left Ventricle Normal left ventricular size, systolic function and wall thickness, with no regional wall motion abnormalities. Left ventricular ejection fraction is estimated at 60 %. Grade I/IV diastolic dysfunction (abnormal relaxation filling pattern), normal to mildly elevated filling pressures. Right Ventricle The right ventricle is normal in size and function. Right Atrium The right atrium is normal in size. Left Atrium The left atrium is normal in size. Mitral Valve Structurally normal mitral valve without significant stenosis or prolapse. There is no mitral regurgitation. Aortic Valve Mild aortic valve calcification. No aortic valve stenosis. Trace aortic valve regurgitation. Tricuspid Valve Structurally normal tricuspid valve without significant stenosis or regurgitation. Pulmonary artery systolic pressure is normal. Pulmonic Valve Structurally normal pulmonic valve without significant stenosis. There is no pulmonic regurgitation. Pericardium Normal pericardium without effusion. Aorta Normal ascending aorta dimension. IVC The inferior vena cava appears normal. CONCLUSIONS Normal left ventricular size, systolic function and wall thickness, with no regional wall motion abnormalities. Left ventricular ejection fraction is estimated at 60 %. Grade I/IV diastolic dysfunction (abnormal relaxation filling pattern), normal to mildly elevated filling pressures. There is no pericardial effusion. No significant valve abnormalities. Right atrial pressure is around 5 mm of mercury. Bindu Aponte MD (Electronically Signed) Final Date: 11 Nov 2024 20:12 S
== END 2024-11-08 06:04 | disposition home or self-care (01) ==
PROVIDERS: PCP Family Medicine; Visit Provider Internal Medicine Cardiovascular Disease
DX: R06.02 Shortness of breath (principal); R93.1 Abnormal findings on diagnostic imaging of heart and coronary circulation; I35.8 Other nonrheumatic aortic valve disorders
CPT/HCPCS: 93306

== ENCOUNTER → 2025-01-18 11:18 | Outpatient (BNVA) | payer OTHER, SELFPAY | PROVIDERS: PCP Family Medicine; Visit Provider Internal Medicine Rheumatology | DX: H20.9 Unspecified iridocyclitis (principal); D86.9 Sarcoidosis, unspecified; Z71.85 Encounter for immunization safety counseling; Z79.899 Other long term (current) drug therapy; R59.0 Localized enlarged lymph nodes; R21 Rash and other nonspecific skin eruption | CPT/HCPCS: 99214 ==

== ENCOUNTER → 2025-02-01 14:54 | Outpatient (BNVA) | payer OTHER, SELFPAY | PROVIDERS: PCP Family Medicine; Visit Provider Podiatrist Foot & Ankle Surgery | DX: Z98.1 Arthrodesis status (principal); M79.671 Pain in right foot; M25.471 Effusion, right ankle | CPT/HCPCS: 73610; 99213 ==

== ENCOUNTER → 2025-04-23 14:44 | Outpatient (BNVA) | payer OTHER, SELFPAY | PROVIDERS: PCP Family Medicine; Visit Provider Nurse Practitioner Family | DX: L30.8 Other specified dermatitis (principal); L57.8 Other skin changes due to chronic exposure to nonionizing radiation; L81.4 Other melanin hyperpigmentation; D18.01 Hemangioma of skin and subcutaneous tissue; L57.0 Actinic keratosis | CPT/HCPCS: 17000; 99214 ==